=== PATIENT | male | born 1940 | race Caucasian/White ===

== ENCOUNTER → 2016-07-12 | Outpatient (CLI) | payer MEDICARE ==
--- NOTE | 2016-07-12 13:48 | US ---
EXAMINATION TYPE: US abdomen complete DATE OF EXAM: 07/12/2016 10:34 AM COMPARISON: Renal US in PACS CLINICAL HISTORY: R10.13 Epigastric pain. Pt states one episode epigastric pain EXAM MEASUREMENTS: Liver Length: 15.2 cm Gallbladder Wall: 0.3 cm CBD: 0.4 cm Spleen: 12.8 cm Right Kidney: 10.3 x 5.0 x 4.2 cm Left Kidney: 11.9 x 5.1 x 4.5 cm TECHNOLOGIST IMPRESSION: Very limited exam, pt gassy and most of scan visualized intercostally Pancreas: Obscured by bowel gas Liver: Limited visualization, seen mostly intercostally Gallbladder: wnl Evidence for sonographic Eason's sign: No CBD: wnl Spleen: wnl Right Kidney: Cortical thinning Left Kidney: Cortical thinning, Possible cyst upper pole= 1.8 x 1.6 x 1.5 cm Upper IVC: Unable to visualize Abd Aorta: Proximal portion gassed out, mid and distal portions appeared wnl IMPRESSION: 1. Limited due to bowel gas. 2. Visualized abdomen is unremarkable. 3. Possible small left cortical renal cyst
== END | disposition home or self-care (01) ==
LOC: RADUSWWP 10:14
PROVIDERS: ATTEND Family Medicine
DX: R10.13 Epigastric pain (principal)
CPT/HCPCS: 76700

== ENCOUNTER → 2016-08-05 | Outpatient (CLI) | payer MEDICARE ==
[2016-08-05 10:50] LABS: ALT 27 U/L (21-72); AST 23 U/L (17-59); Alkaline Phosphatase 114 U/L (38-126); Anion Gap 13 mmol/L; Blood Urea Nitrogen 19 mg/dL (9-20); Calcium 10.4 mg/dL (8.4-10.2); Carbon Dioxide 25 mmol/L (22-30); Chloride 104 mmol/L (98-107); Cholesterol 121 mg/dL (<200); Glucose 88 mg/dL (74-99); HDL Cholesterol 37 mg/dL (40-60); Non-African American GFR(MDRD) 58 (>60 ml/min/1.73 sqM); Potassium 4.9 mmol/L (3.5-5.1); Sodium 142 mmol/L (137-145); Total Bilirubin 0.8 mg/dL (0.2-1.3); Total Protein 7.1 g/dL (6.3-8.2); Triglycerides 157 mg/dL (<150)
== END | disposition home or self-care (01) ==
LOC: LABWHC1 08:51
PROVIDERS: ATTEND Internal Medicine Interventional Cardiology
DX: E78.2 Mixed hyperlipidemia (principal)
CPT/HCPCS: 36415; 80053; 80061

== ENCOUNTER → 2017-09-07 | Outpatient (CLI) | payer MEDICARE ==
[2017-09-07 11:26] LABS: Albumin 3.9 g/dL (3.5-5.0); Calcium 10.6 mg/dL (8.4-10.2); Potassium 4.8 mmol/L (3.5-5.1); Total Bilirubin 0.7 mg/dL (0.2-1.3); Total Protein 6.6 g/dL (6.3-8.2)
== END | disposition home or self-care (01) ==
LOC: LABWHC1 10:07
PROVIDERS: ATTEND Internal Medicine Interventional Cardiology
DX: E78.2 Mixed hyperlipidemia (principal)
CPT/HCPCS: 36415; 80053; 80061

== ENCOUNTER → 2018-03-14 | Day surgery (SDC) | payer MEDICARE ==
[2018-03-09 09:57] VITALS: BMI 33.1
[~2018-03-14] MED LIST: LACTATED RINGERS 1,000 ML IV ONE; LACTATED RINGERS 1,000 ML IV SCH; LIDOCAINE 1% 20 ML VIAL (10MG/ML) FOR IV START INTRADERMA ONE; LIDOCAINE 1% INJ 10MG/ML (20 ML MDV) ONE; PROPOFOL 10 MG/ML 20 ML VIAL IV ONE
[2018-03-14 10:21] VITALS: TEMP 98.1
--- NOTE | 2018-03-14 10:43 | P.GSHP ---
History of Present Illness H&P Date: 03/14/18 Chief Complaint: Colon cancer screening 78-year-old male presents today for colonoscopy. Last colonoscopy he had multiple polyps. He has a family history of colon cancer. Last colonoscopy 5- 6 years ago. No bowel complaints. Past Medical History Past Medical History: Hyperlipidemia, Hypertension, Osteoarthritis (OA) History of Any Multi-Drug Resistant Organisms: None Reported Past Surgical History: Heart Catheterization With Stent Additional Past Surgical History / Comment(s): Colonoscopy Past Anesthesia/Blood Transfusion Reactions: No Reported Reaction Date of Last Stent Placement:: 2009 Smoking Status: Former smoker - Past Family History Father Family Medical History: Cancer Additional Family Medical History / Comment(s): Colon CA Mother Family Medical History: Cancer Additional Family Medical History / Comment(s): Skin CA Daughter(s) Family Medical History: Deep Vein Thrombosis (DVT) Medications and Allergies Home Medications Medication Instructions Recorded Confirmed Type Albuterol Inhaler [Ventolin Hfa 1 - 2 puff INHALATION RT-Q6H PRN 03/09/18 History Inhaler] Aspirin [Adult Low Dose Aspirin EC] 81 mg PO DAILY 03/09/18 03/09/18 History Atenolol 100 mg PO DAILY 03/09/18 03/14/18 History Atorvastatin [Lipitor] 10 mg PO HS 03/09/18 03/14/18 History Beclomethasone Dipropionate [Qvar 1 puff INHALATION BID PRN 03/09/18 03/14/18 History 40 mcg Redihaler] HYDROcodone/APAP 5-325MG [Secor 1 tab PO Q6HR PRN 03/09/18 03/14/18 History 5-325] Lisinopril [Prinivil] 5 mg PO DAILY 03/09/18 03/14/18 History Tamsulosin [Flomax] 0.4 mg PO DAILY 03/09/18 03/14/18 History Allergies Allergy/AdvReac Type Severity Reaction Status Date / Time No Known Allergies Allergy Verified 03/14/18 10:12 Surgical - Exam Vital Signs Temp Pulse Resp BP Pulse Ox 98.1 F 58 L 16 144/66 99 03/14/18 10:20 03/14/18 10:20 03/14/18 10:20 03/14/18 10:20 03/14/18 10:20 Physical exam: General: Well-developed, well-nourished HEENT: Normocephalic, sclerae nonicteric Abdomen: Nontender, nondistended Extremities: No edema Neuro: Alert and oriented Assessment and Plan (1) Colon cancer screening Narrative/Plan: Will proceed with colonoscopy at this time. Current Visit: Yes Status: Acute Code(s): Z12.11 - ENCOUNTER FOR SCREENING FOR MALIGNANT NEOPLASM OF COLON SNOMED Code(s): 541180335
--- NOTE | 2018-03-14 11:11 | P.PCN ---
Date of Procedure: 03/14/18 Procedure(s) Performed: PREOPERATIVE DIAGNOSIS: Colon cancer screening, history of multiple polyps, family history colon cancer POSTOPERATIVE DIAGNOSIS: Multiple colon polyps, see report PROCEDURE: Colonoscopy with snare polypectomy ANESTHESIA: MAC SURGEON: Qasim Acosta M.D. SPECIMENS: Multiple polyps ENDOSCOPIC PROCEDURE: The patient was placed on the endoscopy table in the left decubitus position. The Olympus colonoscope was inserted into the anus and passed under direct visualization to the proximal ascending colon. I was unable to advance the scope into the base of the cecum although I could visualize the majority of the base of the cecum from a distance of approximately 5-10 cm. This was due to tortuosity of the colon. The scope was withdrawn from that point. There were no abnormalities identified in the cecum or ascending colon. In the transverse colon a total of 4 polyps were identified and removed using the snare with cautery technique. None of these polyps were larger than 1 cm. In the descending colon an additional 4 polyps were identified with the largest measuring 1.5 cm. This was removed in a piecemeal fashion. This was present at 70 cm. These were sent altogether as descending colon polyps. The remainder of the descending sigmoid and rectum were free of any neoplastic inflammatory or polypoid lesions. The rest no visible diverticulosis. Digital rectal examination was normal. The patient was taken to the recovery room in stable condition per anesthesia guidelines. RECOMMENDATIONS: Await biopsy results. Recommend follow-up colonoscopy one year. Patient was advised previously to follow-up in 2 years and missed his appointment.
[2018-03-14 11:17] VITALS: RESP 18
[2018-03-14 11:52] VITALS: BP 136/79; PULSE 62
== END | disposition home or self-care (01) ==
LOC: ORWHC2ENDO 09:56
PROVIDERS: ATTEND Surgery
DX: Z12.11 Encounter for screening for malignant neoplasm of colon (principal); D12.3 Benign neoplasm of transverse colon; D12.4 Benign neoplasm of descending colon; E78.5 Hyperlipidemia, unspecified; I10 Essential (primary) hypertension; M19.90 Unspecified osteoarthritis, unspecified site; I25.10 Atherosclerotic heart disease of native coronary artery without angina pectoris; Z95.5 Presence of coronary angioplasty implant and graft; Z87.891 Personal history of nicotine dependence; Z79.82 Long term (current) use of aspirin; Z79.899 Other long term (current) drug therapy; Z80.0 Family history of malignant neoplasm of digestive organs; Z86.010 Personal history of colon polyps
CPT/HCPCS: 88305; 45385; J2001; J2704

== ENCOUNTER → 2018-10-02 | Outpatient (CLI) | payer MEDICARE ==
[2018-10-02 16:24] LABS: LDL Cholesterol,Calculated 67.4 mg/dL (0.0-131.0); VLDL Calculation 25.6 mg/dL (5.00-40.00)
== END | disposition home or self-care (01) ==
LOC: LABWHC1 08:54
PROVIDERS: ATTEND Internal Medicine Interventional Cardiology
DX: E78.2 Mixed hyperlipidemia (principal)
CPT/HCPCS: 36415; 80061; 84450; 84460

== ENCOUNTER → 2019-03-28 | Outpatient (CLI) | payer MEDICARE ==
[2019-03-28 16:21] LABS: African American GFR (CKD) 73.1 (60.0-200.0); Albumin 4.6 g/dL (3.80-4.90); Albumin/Globulin Ratio 2.42 (1.60-3.17); Anion Gap 8.6 mmol/L (4.00-12.00); BUN/Creat Ratio 17.27 Ratio (12.00-20.00); Calcium 10.8 mg/dL (8.7-10.3); Carbon Dioxide 25.4 mmol/L (21.6-31.8); Chol/HDL Ratio 3.42; Globulin 1.9 g/dL (1.6-3.3); LDL Cholesterol,Calculated 61.8 mg/dL (0.0-131.0); Potassium 4.6 mmol/L (3.5-5.5); Total Bilirubin 0.7 mg/dL (0.3-1.2); Total Protein 6.5 g/dL (6.2-8.2); VLDL Calculation 25.2 mg/dL (5.00-40.00)
== END | disposition home or self-care (01) ==
LOC: LABWHC1 11:16
PROVIDERS: ATTEND Nurse Practitioner Adult Health
DX: I10 Essential (primary) hypertension (principal); E78.2 Mixed hyperlipidemia; I25.10 Atherosclerotic heart disease of native coronary artery without angina pectoris
CPT/HCPCS: 36415; 80053; 80061

== ENCOUNTER → 2019-03-28 | Outpatient (CLI) | payer MEDICARE ==
[~2019-03-28] MED LIST changes: +DOBUTamine DRIP for NUC MED 500 MG in DEXTROSE/WATER 1 250ML.BAG IV ONE; -LACTATED RINGERS 1,000 ML IV ONE; -LACTATED RINGERS 1,000 ML IV SCH; -LIDOCAINE 1% 20 ML VIAL (10MG/ML) FOR IV START INTRADERMA ONE; -LIDOCAINE 1% INJ 10MG/ML (20 ML MDV) ONE; -PROPOFOL 10 MG/ML 20 ML VIAL IV ONE
--- NOTE | 2019-03-28 18:41 | P.STRESS ---
- Stress Test Note Stress Test Results/Findings: Exam Performed: dobutamine stress echo Exam Date: 03/28/19 Reason for Exam: chest pain Height: 5 ft 8 in Weight: 97.522 kg Protocol: dobutamine stress echo Stage: 4 Duration of Exercise: 12 min Resting Heart Rate: 78 Resting Blood Pressure: 154/88 Maximum Achieved Heart Rate: 121 Maximum Achieved Blood Pressure: 144/66 85% PMHR: 119 100% PMHR: 140 METS: na Technologist Comment: Stress Test Results/Findings: This is a 79-year-old gentleman with history of hypertension and also history of angina being evaluated for symptoms of chest pain and shortness of breath. Patient has underlying COPD. Stress data: Baseline EKG showed a sinus rhythm with evidence of a right bundle branch block pattern with secondary ST-T changes. Blood pressure at rest is 154/88 with pulse rate of 78. Patient was initiated on 10 mics of dobutamine which was titrated to 40 mics, achieving a maximum heart rate of 121 with a blood pressure 144/66. EKGs taken during and after the dobutamine infusion continued to show right bundle-branch block pattern without any significant deviation from the baseline. Echo data: Baseline echo images show normal wall motion and thickening. Echo images taken at low dose and high dose dobutamine showed progressive augmentation of wall motion and thickening in all the segments. Final impression: #1. Nondiagnostic dobutamine stress echo because of baseline EKG changes #2. Negative dobutamine stress echo
== END | disposition home or self-care (01) ==
LOC: RADNMMAIN 09:38
PROVIDERS: ATTEND Family Medicine
DX: I10 Essential (primary) hypertension (principal); R07.89 Other chest pain
CPT/HCPCS: 93351; J1250

== ENCOUNTER 2019-04-10 06:12 | Day surgery (SDC) | payer MEDICARE ==
[2019-04-09 09:24] VITALS: BMI 32.6
[2019-04-10] MEDS ORDERED: ALPRAZolam 0.25 MG TAB PO PRN (06:16)
[2019-04-10] MEDS ORDERED: SODIUM CHLORIDE 0.9% 1,000 ML in EMPTY BAG 1 BAG IV ONE (06:16)
[2019-04-10] MEDS ORDERED: ALPRAZolam 0.5 MG TAB PO PRN (06:16)
[2019-04-10] MEDS ORDERED: NITROGLYCERIN SL TABS 0.4 MG TAB SUBLINGUAL PRN (06:16)
[2019-04-10 06:57] VITALS: TEMP 98.1
[2019-04-10] MEDS ORDERED: ATORVASTATIN 80 MG TAB PO ONE (07:00)
[2019-04-10] MEDS ORDERED: ASPIRIN 325 MG TAB PO ONE (07:00)
[2019-04-10 07:04] LABS: Basophils # (A) 0.1 k/uL (0-0.2); Basophils % (A) 2 %; Eosinophils # (A) 0.2 k/uL (0-0.7); Eosinophils % (A) 3 %; HCT 43.3 % (39.0-53.0); HGB 14.8 gm/dL (13.0-17.5); Lymphocytes # (A) 1.3 k/uL (1.0-4.8); Lymphocytes % (A) 18 %; MCH 29.6 pg (25.0-35.0); MCHC 34.1 g/dL (31.0-37.0); MCV 86.6 fL (80.0-100.0); Monocytes # (A) 0.5 k/uL (0-1.0); Monocytes % (A) 6 %; Neutrophils # (A) 5.3 k/uL (1.3-7.7); Neutrophils % (A) 70 %; Platelet Count 136 k/uL (150-450); WBC 7.7 k/uL (3.8-10.6)
[2019-04-10] MEDS ORDERED: fentaNYL (PF) 50 MCG/ML 2 ML AMP ONE (07:33)
[2019-04-10] MEDS ORDERED: VERAPAMIL 2.5 MG/ML 2 ML AMP ONE (07:33)
[2019-04-10] MEDS ORDERED: LIDOCAINE 1% INJ 10MG/ML (20 ML MDV) ONE (07:33)
[2019-04-10] MEDS ORDERED: fentaNYL (PF) 50 MCG/ML 2 ML AMP IV ONE (07:42)
[2019-04-10] MEDS ORDERED: LIDOCAINE 1% INJ 10MG/ML (20 ML MDV) SQ ONE (07:45)
[2019-04-10] MEDS ORDERED: VERAPAMIL SYRINGE (5 MG/10 ML) INTRAARTER ONE (07:47)
[2019-04-10] MEDS ORDERED: HEPARIN SODIUM 1,000 UN/ML (10ML VL) ONE (07:53)
[2019-04-10] MEDS ORDERED: HEPARIN SODIUM 1,000 UN/ML (10ML VL) IV ONE (07:54)
[2019-04-10] MEDS ORDERED: IOPAMIDOL-370 125ML BTL INJ ONE (08:00)
[2019-04-10] MEDS ORDERED: BECLOMETHASONE DIPROPIONATE INHALATION PRN (08:08)
[2019-04-10] MEDS ORDERED: HYDROcodone/APAP 5-325MG 1 EACH TAB PO PRN (08:08)
[2019-04-10] MEDS ORDERED: RX INFO: IV CONTRAST WAS GIVEN 1 EACH MISC MISCELLANE PRN (08:08)
[2019-04-10] MEDS ORDERED: SODIUM CHLORIDE 0.9% 1,000 ML IV SCH (08:15)
[2019-04-10] MEDS ORDERED: ATENOLOL 100 MG PO SCH (09:00)
[2019-04-10] MEDS ORDERED: NON FORMULARY DRUG (Aspirin [Adult Low Dose Aspirin Ec] 81 MG) PO SCH (09:00)
[2019-04-10] MEDS ORDERED: TAMSULOSIN 0.4 MG CAP.ER.24H PO SCH (09:00)
[2019-04-10] MEDS ORDERED: LISINOPRIL 5 MG TAB PO SCH (09:00)
[2019-04-10 11:01] VITALS: PULSE 56
--- NOTE | 2019-04-10 11:27 | CC ---
CARDIAC CATHETERIZATION REPORT Mr. Flores is an 79-year-old male with known history of hypertension, hyperlipidemia, who has presented with symptoms of progressive dyspnea and chest discomfort, relieved with nitroglycerin over the last 2 weeks. In view of that, recommendation made regarding cardiac catheterization. The procedures, risks and complication were discussed with the patient who is in full understanding and agreement. PROCEDURE: Patient was brought to [facility] in the fasting semi-sedated state after receiving fentanyl and Benadryl and achieving moderate conscious sedated state. Using Xylocaine anesthesia and Seldinger technique, a 6-Surinamese sheath was introduced in the right radial artery. Selective right and left coronary angiography performed using 5-Surinamese 3.5 bend right and left Bridget catheter, multiple views of the coronary artery including hemiaxial views were obtained. Following that, a 5-Surinamese tight pigtail catheter was introduced in the left ventricle and pressures were calculated. Following that, catheter and sheath were removed. Hemostasis was obtained with deployment of a TR band. There was no immediate complication. Patient is returned to his room in stable condition. Of note, the patient received 5000 units of intravenous heparin as well as intra-arterial verapamil. FINDINGS: LEFT MAIN: This is a short size vessel, bifurcating into left circumflex, left anterior descending artery. Left main coronary artery has no evidence of high-grade stenosis. LEFT ANTERIOR DESCENDING ARTERY: This is a large-sized vessel, reaching toward the apex with a wraparound apex segment giving rise to a large diagonal branch. The proximal LAD is stented and has no evidence of restenosis. Following the stent, there is a 20% plaque without any evidence of high-grade stenosis. LEFT CIRCUMFLEX: This is a nondominant vessel, large in caliber giving rise to 4 obtuse marginal branch. The left main in the left circumflex has mild intimal disease of 10% to 20% without any evidence of high-grade stenosis. RIGHT CORONARY ARTERY: This is a moderately-sized vessel bifurcating distally into PDA and posterolateral segment branches. The right coronary artery in mid segment has a 20% plaque without any evidence of high-grade stenosis. LEFT VENTRICULOGRAM: Left ventriculogram was not performed. HEMODYNAMICS: There was no gradient across the aortic valve. The left ventricular end- diastolic pressure was 20-24 mmHg. CONCLUSION: 1. Mild triple-vessel coronary artery disease. 2. No evidence of restenosis at the prior stented segment in the proximal LAD. RECOMMENDATION: In view of finding anatomy, I recommend continue medical therapy with the aggressive coronary risk modifications being initiated. Those findings and recommendation were discussed with the patient and his family and they are in full understanding and agreement. Duration of procedure is 15 minutes. YOHANA / BRIANDA: [id number] /
--- NOTE | 2019-04-10 11:33 | LTR ---
DATE OF SERVICE: 04/10/2019 RE: Cortez Flores Dear Dr. Dukes: I had the pleasure to perform cardiac catheterization on Mr. Flores at [facility] on April 10, 2019 and a full copy of the procedure note will be forwarded to you. In brief, he was found to have no evidence of restenosis at the prior stented segment of 2009 with mild intimal disease. In view of those findings, I recommend continue medical therapy with aggressive risk modification that has been initiated and thank you again for allowing me to participate in this patient's care. Please feel free to call for any questions. Sincerely yours, Georgie Dunlap MD [id number] / ANÍBALN: [id number] /
[2019-04-10 12:29] VITALS: BP 120/56; RESP 18
[2019-04-10] MEDS ORDERED: ATORVASTATIN 10 MG TAB PO SCH (21:00)
== END 2019-04-10 12:55 | disposition home or self-care (01) ==
LOC: CATHCVL 06:12
PROVIDERS: ATTEND Internal Medicine Interventional Cardiology
DX: I25.110 Atherosclerotic heart disease of native coronary artery with unstable angina pectoris (principal); I10 Essential (primary) hypertension; E78.2 Mixed hyperlipidemia; E66.9 Obesity, unspecified; Z68.34 Body mass index [BMI] 34.0-34.9, adult; Z79.82 Long term (current) use of aspirin; Z79.899 Other long term (current) drug therapy; Z79.51 Long term (current) use of inhaled steroids
CPT/HCPCS: 93458; 85025; J2001; J3010; J1644; Q9967

== ENCOUNTER → 2019-06-13 | Outpatient (CLI) | payer MEDICARE ==
--- NOTE | 2019-06-14 11:39 | XR ---
EXAMINATION TYPE: XR chest 2V DATE OF EXAM: 06/13/2019 COMPARISON: 05/21/2010 INDICATION: Short of breath and wheezing x1 week TECHNIQUE: Frontal and lateral views of the chest are obtained. FINDINGS: The heart size is normal. The pulmonary vasculature is normal. There is elevation of the right diaphragm. There is some flattening the diaphragms. Some underlying i nfiltrate adjacent to the diaphragm may be present.. Note is made of degenerative changes at the bilateral shoulders. Prior surgical resection of the left distal clavicle is evident. IMPRESSION: 1. Clinical correlation recommended for right lower lobe atelectasis. Follow-up can be performed.
== END | disposition home or self-care (01) ==
LOC: RADXRMAIN 17:57
PROVIDERS: ATTEND Family Medicine
DX: J98.11 Atelectasis (principal)
CPT/HCPCS: 71046

== ENCOUNTER 2019-12-02 10:11 | Emergency (ER) | payer MEDICARE ==
[2019-12-02 10:17] VITALS: TEMP 97.9
[2019-12-02] MEDS ORDERED: SODIUM CHLORIDE 0.9% 1,000 ML IV STA ×2 (10:39)
[2019-12-02] MEDS ORDERED: ONDANSETRON 4 MG/2 ML VIAL IVP STA (10:39)
[2019-12-02] MEDS ORDERED: HYDROmorphone 0.5 MG/0.5 ML SYRINGE IVP STA (10:39)
[2019-12-02] MEDS ORDERED: PANTOPRAZOLE 40 MG/10 ML VIAL IVP STA (10:39)
--- NOTE | 2019-12-02 10:44 | ED ---
Abdominal Pain HPI - General Chief Complaint: Abdominal Pain Stated Complaint: Abd pain Time Seen by Provider: 12/02/19 10:24 Source: patient, RN notes reviewed, old records reviewed Mode of arrival: ambulatory Limitations: no limitations - History of Present Illness Initial Comments: Patient is an 79-year-old male who presents emergency Department today with complaints of epigastric abdominal pain. Vomiting after eating for the past 5 days. He reports that he has been passing some gas minor bowel movement on Monday. Denies any history of abdominal surgeries. Last was [address] Acosta. Patient denies any chest pain or shortness of breath or fevers. He denies any significant change in urination. - Related Data Home Medications Medication Instructions Recorded Confirmed Aspirin [Adult Low Dose Aspirin EC] 81 mg PO HS 03/09/18 12/02/19 Atorvastatin [Lipitor] 10 mg PO HS 03/09/18 12/02/19 HYDROcodone/APAP 5-325MG [[place] 1 tab PO TID PRN 03/09/18 12/02/19 5-325] Lisinopril [Prinivil] 5 mg PO DAILY 03/09/18 12/02/19 Tamsulosin [Flomax] 0.4 mg PO HS 03/09/18 12/02/19 Atenolol [Tenormin] 50 mg PO BID 12/02/19 12/02/19 Omeprazole 20 mg PO HS 12/02/19 12/02/19 Pregabalin 100 mg PO HS 12/02/19 12/02/19 Previous Rx's Medication Instructions Recorded Famotidine [Pepcid] 20 mg PO BID #20 tablet 12/02/19 Ondansetron Odt [Zofran Odt] 4 mg PO Q8HR PRN #12 tab 12/02/19 Allergies Allergy/AdvReac Type Severity Reaction Status Date / Time No Known Allergies Allergy Verified 12/02/19 11:02 Review of Systems ROS Statement: Those systems with pertinent positive or pertinent negative responses have been documented in the HPI. ROS Other: All systems not noted in ROS Statement are negative. Past Medical History Past Medical History: Coronary Artery Disease (CAD), COPD, Hyperlipidemia, Hypertension, Osteoarthritis (OA), Prostate Disorder History of Any Multi-Drug Resistant Organisms: None Reported Past Surgical History: Heart Catheterization With Stent Additional Past Surgical History / Comment(s): Colonoscopy Past Anesthesia/Blood Transfusion Reactions: No Reported Reaction Date of Last Stent Placement:: 2009 Past Psychological History: No Psychological Hx Reported Smoking Status: Former smoker Past Alcohol Use History: None Reported Past Drug Use History: None Reported - Past Family History Father Family Medical History: Cancer Additional Family Medical History / Comment(s): Colon CA Mother Family Medical History: Cancer Additional Family Medical History / Comment(s): Skin CA Daughter(s) Family Medical History: Deep Vein Thrombosis (DVT) General Exam - General Exam Comments Initial Comments: 79-year-old male. Alert and oriented 3. Limitations: no limitations General appearance: alert, in no apparent distress Head exam: Present: atraumatic, normocephalic, normal inspection Eye exam: Present: normal appearance, PERRL, EOMI. Absent: scleral icterus, conjunctival injection, periorbital swelling ENT exam: Present: normal exam, mucous membranes moist Neck exam: Present: normal inspection. Absent: tenderness, meningismus, lymphadenopathy Respiratory exam: Present: normal lung sounds bilaterally. Absent: respiratory distress, wheezes, rales, rhonchi, stridor Cardiovascular Exam: Present: regular rate, normal rhythm, normal heart sounds. Absent: systolic murmur, diastolic murmur, rubs, gallop, clicks GI/Abdominal exam: Present: soft, normal bowel sounds. Absent: distended, tenderness, guarding, rebound, rigid Extremities exam: Present: normal inspection, full ROM, normal capillary refill. Absent: tenderness, pedal edema, joint swelling, calf tenderness Back exam: Present: normal inspection Course Vital Signs 12/02/19 10:15 Temperature 97.9 F Pulse Rate 78 Respiratory 18 Rate Blood Pressure 156/76 O2 Sat by Pulse 97 Oximetry Medical Decision Making - Medical Decision Making 79-year-old male presents emergency department today for evaluation for concerns for abdominal pain, nausea and vomiting and distention and belching. He was passing some gas for the past day. Patient states that he feels that anytime he eats he feels like it will come back up. Patient was given IV fluids and laboratory obtained. Labs are reviewed showing white blood cell count of 6.8, hemoglobin 14.4. Platelets of 135. She was unremarkable sodium 135, potassium of 4.5. Kidney function stable. Bilirubin is normal. Transaminases show no elevation. The patient's concern for distention and pain computed tomography s can was completed. Computed tomography scan shows no evidence of obstruction or any other Abdominal processes and labs reviewed to be normal and normal computed tomography scan I advised Patient follow-up with primary care doctor will have the Patient started on nausea medication and Pepcid to help with stomach lining significantly some irritation in nausea and wanting to occur after vomiting. I discussed Patient to follow-up with primary care physician and return parameters were discussed. - Lab Data Result diagrams: 12/02/19 11:16 12/02/19 11:16 Lab Results 12/02/19 12/02/19 12/02/19 Range/Units 11:16 11:16 11:16 WBC 6.8 (3.8-10.6) k/uL RBC 4.83 (4.30-5.90) m/uL Hgb 14.4 (13.0-17.5) gm/dL Hct 42.1 (39.0-53.0) % MCV 87.3 (80.0-100.0) fL MCH 29.8 (25.0-35.0) pg MCHC 34.1 (31.0-37.0) g/dL RDW 13.2 (11.5-15.5) % Plt Count 135 L (150-450) k/uL Neutrophils % 63 % Lymphocytes % 23 % Monocytes % 8 % Eosinophils % 2 % Basophils % 0 % Neutrophils # 4.3 (1.3-7.7) k/uL Lymphocytes # 1.6 (1.0-4.8) k/uL Monocytes # 0.5 (0-1.0) k/uL Eosinophils # 0.1 (0-0.7) k/uL Basophils # 0.0 (0-0.2) k/uL PT 10.5 (9.0-12.0) sec INR 1.0 (<1.2) APTT 24.0 (22.0-30.0) sec Sodium 135 L (137-145) mmol/L Potassium 4.5 (3.5-5.1) mmol/L Chloride 100 (98-107) mmol/L Carbon Dioxide 26 (22-30) mmol/L Anion Gap 9 mmol/L BUN 17 (9-20) mg/dL Creatinine 0.95 (0.66-1.25) mg/dL Est GFR (CKD-EPI)AfAm 88 (>60 ml/min/1.73 sqM) Est GFR (CKD-EPI)NonAf 76 (>60 ml/min/1.73 sqM) Glucose 113 H (74-99) mg/dL Plasma Lactic Acid Martínez (0.7-2.0) mmol/L Calcium 10.1 (8.4-10.2) mg/dL Total Bilirubin 0.8 (0.2-1.3) mg/dL AST 24 (17-59) U/L ALT 21 (4-49) U/L Alkaline Phosphatase 98 (38-126) U/L Total Protein 6.3 (6.3-8.2) g/dL Albumin 3.8 (3.5-5.0) g/dL Amylase 46 (30-110) U/L Lipase 74 (23-300) U/L 12/02/19 Range/Units 11:16 WBC (3.8-10.6) k/uL RBC (4.30-5.90) m/uL Hgb (13.0-17.5) gm/dL Hct (39.0-53.0) % MCV (80.0-100.0) fL MCH (25.0-35.0) pg MCHC (31.0-37.0) g/dL RDW (11.5-15.5) % Plt Count (150-450) k/uL Neutrophils % % Lymphocytes % % Monocytes % % Eosinophils % % Basophils % % Neutrophils # (1.3-7.7) k/uL Lymphocytes # (1.0-4.8) k/uL Monocytes # (0-1.0) k/uL Eosinophils # (0-0.7) k/uL Basophils # (0-0.2) k/uL PT (9.0-12.0) sec INR (<1.2) APTT (22.0-30.0) sec Sodium (137-145) mmol/L Potassium (3.5-5.1) mmol/L Chloride (98-107) mmol/L Carbon Dioxide (22-30) mmol/L Anion Gap mmol/L BUN (9-20) mg/dL Creatinine (0.66-1.25) mg/dL Est GFR (CKD-EPI)AfAm (>60 ml/min/1.73 sqM) Est GFR (CKD-EPI)NonAf (>60 ml/min/1.73 sqM) Glucose (74-99) mg/dL Plasma Lactic Acid Martínez 1.6 (0.7-2.0) mmol/L Calcium (8.4-10.2) mg/dL Total Bilirubin (0.2-1.3) mg/dL AST (17-59) U/L ALT (4-49) U/L Alkaline Phosphatase (38-126) U/L Total Protein (6.3-8.2) g/dL Albumin (3.5-5.0) g/dL Amylase (30-110) U/L Lipase (23-300) U/L - Radiology Data Radiology results: report reviewed There may be some air-fluid levels within the ascending colon region, reasonably: The midabdomen. Suspicious air-fluid levels or differential air fluid or not evident. No free air is identified. Overall rate is nonspecific bowel gas pattern. KUB shows nonspecific bowel gas pattern. CT abdomen and pelvis is no bowel instruction. No findings for patient's critical symptoms of vomiting and pain. No evidence of diverticulitis. He does have a large fat-containing inguinal hernia. Disposition Clinical Impression: Nausea & vomiting, Abdominal bloating Disposition: HOME SELF-CARE Condition: Good Instructions (If sedation given, give patient instructions): Acute Nausea and Vomiting (ED) Additional Instructions: Please use medication as discussed. Please follow up with family doctor if symptoms have not improved over the next two days. Please return to the emergency room if your symptoms increase or worsen or for any other concerns. Prescriptions: Famotidine [Pepcid] 20 mg PO BID #20 tablet Ondansetron Odt [Zofran Odt] 4 mg PO Q8HR PRN #12 tab PRN Reason: Nausea Is patient prescribed a controlled substance at d/c from ED?: No Referrals: Luis Farooq MD [Primary Care Provider] - 1-2 days Time of Disposition: 12:12
--- NOTE | 2019-12-02 10:59 | XR ---
EXAMINATION TYPE: XR KUB DATE OF EXAM: 12/02/2019 COMPARISON: None HISTORY: Abdomen pain and bloating constipation TECHNIQUE: Upright abdomen FINDINGS: Nonspecific bowel gas is present. There may be some air-fluid levels within the ascending c olon region. There is a redundant loop of colon within the midabdomen. Suspicious air-fluid levels or differential air-fluid levels are not evident. No free air is identified. IMPRESSION: 1. Nonspecific bowel gas pattern.
[2019-12-02 11:03] LABS: Basophils % (A) 0 %; Eosinophils # (A) 0.1 k/uL (0-0.7); Eosinophils % (A) 2 %; HCT 42.1 % (39.0-53.0); HGB 14.4 gm/dL (13.0-17.5); Lymphocytes # (A) 1.6 k/uL (1.0-4.8); Lymphocytes % (A) 23 %; MCH 29.8 pg (25.0-35.0); MCHC 34.1 g/dL (31.0-37.0); MCV 87.3 fL (80.0-100.0); Mean Platelet Volume 9.9; Monocytes # (A) 0.5 k/uL (0-1.0); Monocytes % (A) 8 %; Neutrophils # (A) 4.3 k/uL (1.3-7.7); Neutrophils % (A) 63 %; Platelet Count 135 k/uL (150-450); RBC 4.83 m/uL (4.30-5.90); RDW 13.2 % (11.5-15.5); WBC 6.8 k/uL (3.8-10.6)
[2019-12-02 11:16] LABS: Albumin 3.8 g/dL (3.5-5.0); Calcium 10.1 mg/dL (8.4-10.2); Potassium 4.5 mmol/L (3.5-5.1); Total Bilirubin 0.8 mg/dL (0.2-1.3); Total Protein 6.3 g/dL (6.3-8.2)
[2019-12-02 11:25] LABS: Prothrombin Time 10.5 sec (9.0-12.0)
--- NOTE | 2019-12-02 12:04 | CT ---
EXAMINATION TYPE: CT abdomen pelvis w con DATE OF EXAM: 12/02/2019 COMPARISON: None. HISTORY: Nausea and vomiting CT DLP: 1664.3 mGycm, Automated Exposure Control for Dose Reduction was Utilized. CONTRAST: CT scan of the abdomen and pelvis is performed without oral and with IV Contrast, patient injected wi th 100 mL of Isovue 300. FINDINGS: LUNG BASES: Elevated right hemidiaphragm with partial visualization of mild to moderate bibasilar ishan ear scarring and/or atelectasis. LIVER/GB: Mild left-sided central intrahepatic and intrahepatic biliary dilatation up to 11 mm near t he johnny hepatis with gradual tapering towards the ampulla. No obstructing calculus clearly seen. No pancreatic ductal dilatation noted. Need to followed by nonemergent ERCP or MRCP should be based on c linical and lab correlation. PANCREAS: Mild generalized fat replaced atrophy. SPLEEN: Mild splenomegaly at 13.7 cm long axis coronal image 79. ADRENALS: No significant abnormality is seen. KIDNEYS: Symmetric cortical medullary uptake and excretion without hydronephrosis seen bilaterally. C ortical thinning bilaterally with simple appearing thin-walled 1.9 cm cyst anteriorly midpole of the left kidney. Mildly distended bladder extending to right of midline in the upper pelvis. BOWEL: Suboptimal evaluation without enteric contrast. Stomach poorly distended and thus suboptimally evaluated. No suspicious small or large bowel dilatation. Colonic interposition, entire colon not in cluded at this level. Redundant sigmoid colon. Few scattered colonic diverticula. No convincing CT ev idence for acute diverticulitis. PROSTATE/SEMINAL VESICLES: Heterogeneous enlarged prostate gland consistent with BPH bulging of the b ladder base. LYMPH NODES: No greater than 1cm abdominal or pelvic lymph nodes are appreciated. OSSEOUS STRUCTURES: Moderate to severe multilevel spurring and disc space narrowing throughout the th oracolumbar spine with slight scoliotic curvature. Multilevel facet arthropathy mid to lower lumbar s pine. Bilateral pars defect L5 level with subtle spondylolisthesis L5 on S1 anteriorly. Moderate axia l joint space loss and spurring of both hip joints. OTHER: Moderate to large sized fat-containing right inguinal hernia. IMPRESSION: No bowel obstruction. No significant acute finding is seen to account for patient's clin ical symptoms of pain and vomiting..
[2019-12-02 13:06] LABS: RBC,Urine <1 /hpf (0-5)
[2019-12-02] MEDS ORDERED: DOCUSATE 283 MG/5 ML ENEMA RECTAL STA (13:06)
[2019-12-02 13:14] LABS: Appearance,Urine Clear (Clear); Color,Urine Yellow
[2019-12-02 13:15] LABS: Bilirubin,Urine Negative (Negative); Blood,Urine Negative (Negative); Glucose,Urine (UA) Negative (Negative); Ketones,Urine Negative (Negative); Nitrite,Urine Negative (Negative); Protein,Urine Negative (Negative); Urobilinogen,Urine <2.0 mg/dL (<2.0)
[2019-12-02 13:16] LABS: Leukocyte Esterase,Urine Negative (Negative)
[2019-12-02 13:22] VITALS: BP 113/74; PULSE 71; RESP 16
== END 2019-12-02 13:22 | disposition home or self-care (01) ==
LOC: EC 10:11
DX: R11.2 Nausea with vomiting, unspecified (principal); R14.0 Abdominal distension (gaseous); R10.13 Epigastric pain; I25.10 Atherosclerotic heart disease of native coronary artery without angina pectoris; E78.5 Hyperlipidemia, unspecified; I10 Essential (primary) hypertension; Z79.82 Long term (current) use of aspirin; Z79.899 Other long term (current) drug therapy; Z87.891 Personal history of nicotine dependence; Z95.5 Presence of coronary angioplasty implant and graft
CPT/HCPCS: 36415; 93005; 80053; 82150; 83605; 83690; 85025; 85610; 85730; 81003; 74018; 74177; 99285; 96374; 96375; 96361 ×2; J2405; C9113; Q9967

== ENCOUNTER → 2019-12-24 | Day surgery (SDC) | payer MEDICARE ==
[2019-12-20 18:32] VITALS: BMI 34.3
[~2019-12-24] MED LIST changes: -DOBUTamine DRIP for NUC MED 500 MG in DEXTROSE/WATER 1 250ML.BAG IV ONE; +LACTATED RINGERS 1,000 ML IV SCH; +LIDOCAINE 1% (10MG/ML) FOR IV START INTRADERMA ONE; +PROPOFOL 10 MG/ML 20 ML VIAL IV ONE
[2019-12-24 10:49] VITALS: TEMP 97.6
[2019-12-24 11:39] VITALS: RESP 20
--- NOTE | 2019-12-24 11:40 | P.PCN ---
Date of Procedure: 12/24/19 Procedure(s) Performed: PREOPERATIVE DIAGNOSIS: Epigastric pain, change in bowel habits POSTOPERATIVE DIAGNOSIS: Mild gastritis, descending colon polyps PROCEDURE: 1. EGD with biopsy 2. Colonoscopy with snare polypectomy ANESTHESIA: MAC SURGEON: Qasim Acosta M.D. SPECIMENS: Antrum, polyps ENDOSCOPIC PROCEDURE: The patient was on the endoscopy table in the left decubitus position. The Olympus gastroscope was inserted into the oropharynx and passed under direct visualization to the region of the third portion of the duodenum. From that point the scope was slowly withdrawn inspecting all surfaces carefully. There were no neoplastic inflammatory or polypoid lesions throughout the duodenum. The pylorus was widely patent. The stomach was carefully inspected. There was mild gastritis present. A biopsy of the antrum took place to rule out H. pylori. Retroflexion revealed a normal hiatus. The esophagus was then carefully examined. There were no neoplastic inflammatory or polypoid lesions throughout the visualized esophagus. The patient was kept on the endoscopy table in the left decubitus position. The Olympus colonoscope was inserted into the anus and passed under direct visualization to the ascending colon. We're unable to advance the scope more proximally given distal tortuosity. From a distance I thought I could visualize the cecum however we could not get a good enough view to be confident that there were no abnormalities there. The visualized ascending, transverse colon appeared normal. In the descending colon there were 4 polyps in a short stretch that were all removed using the snare with cautery technique. These were small in size. The remainder of the descending sigmoid and rectum appeared normal. There is no visible diverticulosis. Digital rectal examination was normal. The patient was taken to the recovery room in stable condition per anesthesia guidelines. RECOMMENDATIONS: Await biopsy results. Follow-up colonoscopy 5 years. Will discuss limited view of proximal colon with the family. Barium enema will be offered.
[2019-12-24 12:08] VITALS: BP 143/75; PULSE 59
== END ==
LOC: ORWHC2ENDO 10:00
PROVIDERS: ATTEND Surgery
DX: K29.50 Unspecified chronic gastritis without bleeding (principal); D12.4 Benign neoplasm of descending colon; K59.00 Constipation, unspecified; Z86.010 Personal history of colon polyps; Z80.0 Family history of malignant neoplasm of digestive organs; G47.33 Obstructive sleep apnea (adult) (pediatric); K21.9 Gastro-esophageal reflux disease without esophagitis; K40.90 Unilateral inguinal hernia, without obstruction or gangrene, not specified as recurrent; I25.10 Atherosclerotic heart disease of native coronary artery without angina pectoris; J44.9 Chronic obstructive pulmonary disease, unspecified; E78.5 Hyperlipidemia, unspecified; I10 Essential (primary) hypertension; M19.90 Unspecified osteoarthritis, unspecified site; N42.9 Disorder of prostate, unspecified; Z95.5 Presence of coronary angioplasty implant and graft; Z79.82 Long term (current) use of aspirin; Z79.899 Other long term (current) drug therapy; Z79.891 Long term (current) use of opiate analgesic; Z87.891 Personal history of nicotine dependence; Z98.890 Other specified postprocedural states; Z79.51 Long term (current) use of inhaled steroids
CPT/HCPCS: 88305; 45385; 43239; J2704

== ENCOUNTER → 2020-08-14 | Outpatient (CLI) | payer MEDICARE ==
--- NOTE | 2020-08-14 11:03 | XR ---
EXAMINATION TYPE: XR lumbosacral spine min 4V DATE OF EXAM: 08/14/2020 CLINICAL HISTORY: Low back pain into left leg. Radiculopathy prior. TECHNIQUE: Frontal, lateral, and oblique images of the lumbar spine are obtained. COMPARISON: CT abdomen and pelvis December 02, 2019 FINDINGS: There are 5 lumbar type vertebral bodies redemonstrated. Persistent levoconvex scoliosis c entered at L2-L3 level. Bilateral pars defect L5 level with slight grade 1 retrolisthesis L4 on L5 an d grade 1 anterolisthesis L5 on S1 redemonstrated. Vertebral body heights preserved. [id number] re multilevel disc space narrowing is redemonstrated. Multilevel vacuum disc phenomenon is redemonstr ated. Multilevel moderate to advanced spurring with large anterior spur from the L2-L3 level redemons trated multilevel spinous process hypertrophy. Multilevel uncovertebral facet degenerative changes in the mid to lower lumbar spine. Oblique images appear within normal limits. Mild overlying arterial v ascular calcification redemonstrated. Mild anterior wedging T12 level redemonstrated. IMPRESSION: As above.
== END ==
LOC: RADXRMAIN 10:08
PROVIDERS: ATTEND Family Medicine
DX: M41.86 Other forms of scoliosis, lumbar region (principal); M43.17 Spondylolisthesis, lumbosacral region; M47.26 Other spondylosis with radiculopathy, lumbar region; M46.06 Spinal enthesopathy, lumbar region
CPT/HCPCS: 72110

== ENCOUNTER → 2020-12-16 | Outpatient (CLI) | payer MEDICARE ==
[2020-12-16 10:50] VITALS: BP 120/54; PULSE 74; RESP 16; TEMP 98
--- NOTE | 2020-12-16 11:26 | P.PAINCN ---
History of Present Illness - Reason for Consult Consult date: 12/16/20 - History of Present Illness This is 80 years old male with a chronic history of severe low back pain, in addition to the lower extremity, and he is complaining of severe knee pain, patient reported that the pain started 10 years ago he denies any initiating event, he reported that the intensity of the pain increased over the last few months, the pain in the low back area and radiated to the posterior aspect of his lower extremity, so patient complaining of knee pain, increased with any activities especially walking, tried physical therapy previously without any benefit and he tried different kind of pain medication without any benefit, and is currently on Lyrica 100 mg daily at bedtime and [place] 5/325 every 6 when necessary, he denies any side effects of the medication, patient denies any motor or sensory deficits Past Medical History Past Medical History: Coronary Artery Disease (CAD), COPD, GERD/Reflux, Hearing Disorder / Deafness, Hyperlipidemia, Hypertension, Musculoskeletal Disorder, Osteoarthritis (OA), Prostate Disorder, Sleep Apnea/CPAP/BIPAP Additional Past Medical History / Comment(s): Wears Hearing aids, full dentures. Back pain, pain in legs, NT in feet. C/O bloating, constipation, N/V, loss of appetite. Poss sleep apnea. History of Any Multi-Drug Resistant Organisms: None Reported Past Surgical History: Heart Catheterization With Stent Additional Past Surgical History / Comment(s): Colonoscopy. Past Anesthesia/Blood Transfusion Reactions: No Reported Reaction Date of Last Stent Placement:: 2009 Smoking Status: Unknown if ever smoked - Past Family History Father Family Medical History: Cancer Mother Family Medical History: Cancer Daughter(s) Family Medical History: Deep Vein Thrombosis (DVT) Sister(s) Family Medical History: Cancer Additional Family Medical History / Comment(s): colon cancer Medications and Allergies Home Medications Medication Instructions Recorded Confirmed Type Aspirin [Adult Low Dose Aspirin EC] 81 mg PO HS 03/09/18 12/16/20 History Atorvastatin [Lipitor] 10 mg PO HS 03/09/18 12/16/20 History HYDROcodone/APAP 5-325MG [[place] 1 tab PO TID PRN 03/09/18 12/16/20 History 5-325] Tamsulosin [Flomax] 0.4 mg PO HS 03/09/18 12/16/20 History Omeprazole 20 mg PO HS 12/02/19 12/16/20 History Ondansetron Odt [Zofran Odt] 4 mg PO Q8HR PRN #12 tab 12/02/19 12/16/20 Rx Pregabalin 100 mg PO HS 12/02/19 12/16/20 History atenoloL [Tenormin] 50 mg PO BID 12/02/19 12/16/20 History Ferrous Sulfate [Feosol] 325 mg PO Q48H 12/20/19 12/16/20 History Allergies Allergy/AdvReac Type Severity Reaction Status Date / Time No Known Allergies Allergy Verified 12/24/19 10:25 Physical Exam Vitals: Vital Signs Temp Pulse Resp BP Pulse Ox 12/16/20 10:47 98.0 F 74 16 120/54 97 Intake and Output 12/15/20 12/16/20 12/16/20 22:59 06:59 14:59 Other: Weight 99.79 kg Physical Examinations : -Constitutiona : Cooperative , not in acute distress . -HEENT : nech : supple , no Lymphadenopathy , normal thy roid size . : eyes : no ptosis , no icterus, no photophobia . - neurologic : Cranial nerve II to XII intact , no focal neurological deffecit . -psychatric : alert , oriented X 3 , appropriate affect , intact judgment and insight . -Lymphatic : no Lymphadenopathy . - musculoskeltal : Lumber spine moter stegnth lower extremities ,thigh and legs 5/5 Right side , 5/5 Left side deep tendon reflexes : normal Knee Jerk , normal ankle Jerk lumber facet Loading Test =positive Right , positive Left Range of motion of the lumbar spine Flexion 30 degrees, extension 10 degrees strait leg raising test = positive at degree Fabere test= positive Right , and positive LT . tenderness over the Sacroiliac joint on the Right , and Left sides knee= action and extension of bilateral knees associated with severe pain Results Comments: MRI of the lumbar spine multilevel lumbar degenerative disc disease multilevel lumbar facet arthropathy and multilevel neuroforaminal narrowing L1 to L4 5 and L5-S1 Assessment and Plan Plan: Assessment and plan=1-lumbar spondylosis with lumbar facet arthropathy. 2-lumbar degenerative disc disease. 3-lumbar foraminal stenosis. 4-bilateral Knee arthralgia. he would be good candidate to have diagnostic medial branch block lumbar area at L3 , L4, L5 bilaterally possible RFA Patient will be referred for orthopedic surgeon for evaluation regarding his knee pain Time with Patient: Greater than 30 PQRS Measure Charge Sheet Measure #130: Documentation of Current Meds in Medical Chart: Patient's medications documented in chart Measure #226: Tobacco Use: Screen & Cessation Intervention: Pt not a tobacco user Measure #111: Pneumonia Vaccination: Pneumococcal vaccine NOT administered or previously given Measure #47: Advance Care Plan: Advance care planning discussed & documented, pt chose/unable to give Measure #412: Opioid Treatment Agreement: No documentation of signed opioid treatment agreement Measure #408: Opioid Therapy Follow-up Evaluation: Patient had NO f/u eval minimum every 3 months during opioid therapy Measure #317: Preventitive Care & Scrn High Bld Press & F/U: Normal blood pressure, f/u not required Measure #128: Body Mass Index (BMI) Screening & Follow-up: BMI documented ABOVE normal parameters - f/u documented Measure #131: Pain Assessment & Follow-up: Pain positive & plan documented, Follow-up scheduled Measure #431: Unhealthy Alcohol Use Preventative Care & Scrn: Patient not identified as an unhealthy alcohol user PQRS Narrative: Smoking Status Former smoker Blood Pressure 120/54 Scale Used Numeric (1 - 10) Hx Alcohol Use (MH) No Home Medications: Ambulatory Orders Aspirin [Adult Low Dose Aspirin EC] 81 mg PO HS 03/09/18 Atorvastatin [Lipitor] 10 mg PO HS 03/09/18 HYDROcodone/APAP 5-325MG [[place] 5-325] 1 tab PO TID PRN 03/09/18 Tamsulosin [Flomax] 0.4 mg PO HS 03/09/18 Omeprazole 20 mg PO HS 12/02/19 Ondansetron Odt [Zofran Odt] 4 mg PO Q8HR PRN #12 tab 12/02/19 Pregabalin 100 mg PO HS 12/02/19 atenoloL [Tenormin] 50 mg PO BID 12/02/19 Ferrous Sulfate [Feosol] 325 mg PO Q48H 12/20/19
== END ==
LOC: PNWHC3 10:31
PROVIDERS: ATTEND Specialist
DX: M47.816 Spondylosis without myelopathy or radiculopathy, lumbar region (principal); M51.36 Other intervertebral disc degeneration, lumbar region; M48.061 Spinal stenosis, lumbar region without neurogenic claudication; M25.562 Pain in left knee; M25.561 Pain in right knee; I25.10 Atherosclerotic heart disease of native coronary artery without angina pectoris; J44.9 Chronic obstructive pulmonary disease, unspecified; E78.5 Hyperlipidemia, unspecified; I10 Essential (primary) hypertension; M19.90 Unspecified osteoarthritis, unspecified site; Z79.82 Long term (current) use of aspirin; Z87.891 Personal history of nicotine dependence
CPT/HCPCS: 99211

== ENCOUNTER 2021-01-08 08:42 | Day surgery (SDC) | payer MEDICARE ==
[2021-01-07 09:15] VITALS: BMI 33.4
[~2021-01-08 08:42] MED LIST changes: -LIDOCAINE 1% (10MG/ML) FOR IV START INTRADERMA ONE; -PROPOFOL 10 MG/ML 20 ML VIAL IV ONE
[2021-01-08 09:12] VITALS: RESP 16; TEMP 97.8
[2021-01-08] MEDS ORDERED: ROPIVACAINE 5MG/ML 20ML VIAL ONE (09:29)
[2021-01-08] MEDS ORDERED: TRIAMCINOLONE ACETONIDE 40 MG/ML 1 ML VIAL ONE (09:29)
[2021-01-08] MEDS ORDERED: fentaNYL (PF) 50 MCG/ML 2 ML AMP ONE (09:29)
[2021-01-08] MEDS ORDERED: MIDAZOLAM 2 MG/2 ML VIAL ONE (09:29)
--- NOTE | 2021-01-08 09:46 | P.PCN ---
Description of Procedure: Date of Procedure: 01/08/21 Surgeon: Nimisha Humphrey Pathology: none sent Condition: stable Disposition: PACU Description of Procedure: PREOPERATIVE DIAGNOSIS : 1- Lumbar spondylosis with Facet Arthropathy without myelopathy . 2- Lumber degenerative disc disease POSTOPERATIVE DIAGNOSIS: 1- Lumbar spondylosis with Facet Arthropathy without myelopathy . 2- Lumber degenerative disc disease PROCEDURE: Diagnostic bilateral L4 -5 , and L5-S1 medial branch block under fluoroscopy Physician: Nimisha Humphrey MD ANESTHESIA: Local with 1% lidocaine; IV moderate conscious sedation by the anesthesia Department . EBL: Negligible COMPLICATION: None. PROCEDURE INDICATION: Chronic low back pain secondary to Facet arthropathy unresponsive to conservative treatment. PROCEDURE DESCRIPTION: the patient was seen and identified in the preop holding area , risks and benefits and possible complications of the procedure and alternatives were discussed with the patient, and the patient agreed to proceed with the procedure and signed the consent. IV was started and vital signs monitored during the procedure and fluoroscopy was used to maximize the benefit and accuracy of the needle placement, sedation was given to decrease patient anxiety, patient was taken to the procedure room and placed in prone position vital signs monitored. The patient was brought into the procedure room and placed in prone position. Skin was prepped with Chloraprep and draped in a sterile manner. Lidocaine 1% was used to numb the skin up at the target points that were chosen as follows: at the L5-S1 level which corresponds to the dorsal ramus of L5 the target points were at the superior medial aspect of the sacral ala on each side of the spine on the AP view of fluoroscopy, and for theL3 and L4 medial branches the target points were the connection between the transverse process and the superior to go process of L4 and L5 respectively on the oblique views of fluoroscopy. I used 22-gauge 3-1/2 inch Quincke spinal needles for this procedure and after contacting bone at the target points mentioned above I injected 1 mL of a mixture of Kenalog 40 mg +5 MLS of Ropivacaine 0.5% PF . Patient tolerated procedure well. At the end of the procedure the needles removed and a bandage applied after the skin was cleaned the cleaning solution. patient was then taken to the recovery room in stable condition and monitored in the recovery room for 20-30 minutes and discharged home in stable condition after discharge criteria met . A copy of the needle placement picture was saved to the C-arm machine.
[2021-01-08] MEDS ORDERED: IV FLUID CONTINUATION 1,000 ML IV ONE (09:49)
[2021-01-08 10:13] VITALS: BP 126/74; PULSE 63
--- NOTE | 2021-01-08 12:38 | FL ---
EXAMINATION TYPE: FL guided pain mgmt statistic DATE OF EXAM: 01/08/2021 FLUOROSCOPY Fluoroscopy time of 9 seconds was used during bilateral lumbar facet block. 4 image/s document/s the procedure.
== END 2021-01-08 10:20 ==
LOC: ORPAIN 08:42
PROVIDERS: ATTEND Anesthesiology
DX: G89.29 Other chronic pain (principal); M47.816 Spondylosis without myelopathy or radiculopathy, lumbar region; M51.36 Other intervertebral disc degeneration, lumbar region; I10 Essential (primary) hypertension; G47.33 Obstructive sleep apnea (adult) (pediatric); I25.10 Atherosclerotic heart disease of native coronary artery without angina pectoris; E78.5 Hyperlipidemia, unspecified; J44.9 Chronic obstructive pulmonary disease, unspecified; N40.0 Benign prostatic hyperplasia without lower urinary tract symptoms; K21.9 Gastro-esophageal reflux disease without esophagitis; Z79.899 Other long term (current) drug therapy
CPT/HCPCS: 64493; 64494; J2250; J3301; J3010; J2795

== ENCOUNTER → 2021-02-08 | Outpatient (CLI) | payer MEDICARE ==
[2021-02-08 09:17] VITALS: BP 144/86; PULSE 69; RESP 18; TEMP 97.8
--- NOTE | 2021-02-08 09:23 | P.PAINPG ---
Subjective Progress Note Date: 02/08/21 This is 80 years old male with a chronic history of severe low back pain, in addition to the lower extremity, and he is complaining of severe knee pain, patient reported that the pain started 10 years ago he denies any initiating event, he reported that the intensity of the pain increased over the last few months, the pain in the low back area and radiated to the posterior aspect of his lower extremity, so patient complaining of knee pain, increased with any activities especially walking, tried physical therapy previously without any benefit and he tried different kind of pain medication without any benefit, and is currently on Lyrica 100 mg daily at bedtime and [place] 5/325 every 6 when necessary, he denies any side effects of the medication, patient denies any motor or sensory deficits. We recently performed bilateral L4-L5 and L5-S1 medial branch block x1. Patient noted that he got 90% relief from the injection. He continues to attempt home exercise therapy as well as stretching at home. He would like to do physical therapy in the future if his pain is well controlled at this time h is pain is too severe to do that. Physical Examinations : -[place]stitutiona : Cooperative , not in acute distress . -HEENT : nech : supple , no Lymphadenopathy , normal thyroid size . : eyes : no ptosis , no icterus, no photophobia . - neurologic : Cranial nerve II to XII intact , no focal n eurological deffecit . -psychatric : alert , oriented X 3 , appropriate affect , intact judgment and insight . -Lymphatic : no Lymphadenopathy . - musculoskeltal : Lumber spine moter stegnth lower extremities ,thigh and legs 5/5 Right side , 5/5 Left side deep tendon reflexes : normal Knee Jerk , normal ankle Jerk lumber facet Loading Test =positive Ri ght , positive Left Range of motion of the lumbar spine Flexion 30 degrees, extension 10 degrees strait leg raising test = positive at degree Fabere test= positive Right , and positive LT . tenderness over the Sacroiliac joint on the Right , and Left sides knee= action and extension of bilateral knees associated with severe pain Results Comments: MRI of the lumbar spine multilevel lumbar degenerative disc disease multilevel lumbar facet arthropathy and multilevel neuroforaminal narrowing L1 to L4 5 and L5-S1 Assessment and Plan Plan: Assessment and plan=1-lumbar spondylosis with lumbar facet arthropathy. 2-lumbar degenerative disc disease. 3-lumbar foraminal stenosis. 4-bilateral Knee arthralgia. Repeat bilateral L4-5 and L5-S1 MBB x2 I have spent 25 minutes on patient care today. The time was used to review the medical records including relevant urine studies and prescription history, review of the available imaging, evaluation and examination of the patient, coordination of care with the medical staff and if applicable referring physicians, as well as creation of the medical record. PQRS Measure Charge Sheet Measure #130: Documentation of Current Meds in Medical Chart: Patient's medications documented in chart Measure #226: Tobacco Use: Screen & Cessation Intervention: Pt not a tobacco user Measure #111: Pneumonia Vaccination: Pneumococcal vaccine NOT administered or previously given Measure #47: Advance Care Plan: Advance care planning discussed & documented, pt chose/unable to give Measure #412: Opioid Treatment Agreement: No documentation of signed opioid treatment agreement Measure #408: Opioid Therapy Follow-up Evaluation: Patient had NO f/u eval minimum every 3 months during opioid therapy Measure #317: Preventitive Care & Scrn High Bld Press & F/U: Normal blood pressure, f/u not required Measure #128: Body Mass Index (BMI) Screening & Follow-up: BMI documented ABOVE normal parameters - f/u documented Measure #131: Pain Assessment & Follow-up: Pain positive & plan documented, Follow-up scheduled Measure #431: Unhealthy Alcohol Use Preventative Care & Scrn: Patient not identified as an unhealthy alcohol user PQRS Narrative: PQRS Measure Charge Sheet PQRS Narrative: Smoking Status Former smoker Pain Intensity [None] 0 Scale Used Numeric (1 - 10) Hx Alcohol Use (MH) No Home Medications: Ambulatory Orders Aspirin [Adult Low Dose Aspirin EC] 81 mg PO HS 03/09/18 Atorvastatin [Lipitor] 10 mg PO HS 03/09/18 Tamsulosin [Flomax] 0.4 mg PO HS 03/09/18 Omeprazole 20 mg PO HS 12/02/19 Ondansetron Odt [Zofran Odt] 4 mg PO Q8HR PRN #12 tab 12/02/19 Pregabalin 100 mg PO HS 12/02/19 atenoloL [Tenormin] 50 mg PO BID 12/02/19 Ferrous Sulfate [Feosol] 325 mg PO Q48H 12/20/19 Losartan [Cozaar] 25 mg PO DAILY 01/07/21 Controlled Substance Measures - Controlled Substance Measures Is patient prescribed a controlled substance at discharge?: No
== END ==
LOC: PNWHC3 09:07
PROVIDERS: ATTEND Anesthesiology
DX: M47.816 Spondylosis without myelopathy or radiculopathy, lumbar region (principal); M51.36 Other intervertebral disc degeneration, lumbar region; M48.061 Spinal stenosis, lumbar region without neurogenic claudication; M25.561 Pain in right knee; M25.562 Pain in left knee; Z87.891 Personal history of nicotine dependence
CPT/HCPCS: 99211

== ENCOUNTER 2021-03-19 08:29 | Day surgery (SDC) | payer MEDICARE ==
[2021-03-19] MEDS ORDERED: LIDOCAINE 1% (10MG/ML) FOR IV START INTRADERMA ONE (09:00)
[2021-03-19 09:05] VITALS: RESP 16; TEMP 97.8
[2021-03-19] MEDS ORDERED: MIDAZOLAM 2 MG/2 ML VIAL ONE (09:07)
[2021-03-19] MEDS ORDERED: ROPIVACAINE 5MG/ML 20ML VIAL ONE (09:07)
[2021-03-19] MEDS ORDERED: fentaNYL (PF) 50 MCG/ML 2 ML AMP ONE (09:07)
[2021-03-19] MEDS ORDERED: TRIAMCINOLONE ACETONIDE 40 MG/ML 1 ML VIAL ONE (09:07)
--- NOTE | 2021-03-19 09:29 | P.PCN ---
Date of Procedure: 03/19/21 Description of Procedure: Description of Procedure: Date of Procedure: 01/08/21 Surgeon: Nimisha Humphrey Pathology: none sent Condition: stable Disposition: PACU Description of Procedure: PREOPERATIVE DIAGNOSIS : 1- Lumbar spondylosis with Facet Arthropathy without myelopathy . 2- Lumber degenerative disc disease POSTOPERATIVE DIAGNOSIS: 1- Lumbar spondylosis with Facet Arthropathy without myelopathy . 2- Lumber degenerative disc disease PROCEDURE: Diagnostic bilateral L4 -5 , and L5-S1 medial branch block under fluoroscopy Physician: Nimisha Humphrey MD ANESTHESIA: Local with 1% lidocaine; IV moderate conscious sedation by the anesthesia Department . EBL: Negligible COMPLICATION: None. PROCEDURE INDICATION: Chronic low back pain secondary to Facet arthropathy unresponsive to conservative treatment. PROCEDURE DESCRIPTION: the patient was seen and identified in the preop holding area , risks and benefits and possible complications of the procedure and alternatives were discussed with the patient, and the patient agreed to proceed with the procedure and signed the consent. IV was started and vital signs monitored during the procedure and fluoroscopy was used to maximize the benefit and accuracy of the needle placement, sedation was given to decrease patient anxiety, patient was taken to the procedure room and placed in prone position vital signs monitored. The patient was brought into the procedure room and placed in prone position. Skin was prepped with Chloraprep and draped in a sterile manner. Lidocaine 1% was used to numb the skin up at the target points that were chosen as follows: at the L5-S1 level which corresponds to the dorsal ramus of L5 the target points were at the superior medial aspect of the sacral ala on each side of the spine on the AP view of fluoroscopy, and for theL3 and L4 medial branches the target points were the connection between the transverse process and the superior to go process of L4 and L5 respectively on the oblique views of fluoroscopy. I used 22-gauge 3-1/2 inch Quincke spinal needles for this procedure and after contacting bone at the target points mentioned above I injected 1 mL of a mixture of Kenalog 40 mg +5 MLS of Ropivacaine 0.5% PF . Patient tolerated procedure well. At the end of the procedure the needles removed and a bandage applied after the skin was cleaned the cleaning solution. patient was then taken to the recovery room in stable condition and monitored in the recovery room for 20-30 minutes and discharged home in stable condition after discharge criteria met . A copy of the needle placement picture was saved to the C-arm machine.
[2021-03-19] MEDS ORDERED: IV FLUID CONTINUATION 800 ML IV ONE (09:37)
[2021-03-19 09:53] VITALS: BP 131/79; PULSE 61
--- NOTE | 2021-03-19 10:19 | FL ---
Fluoroscopy HISTORY: Pain 11 seconds fluoroscopy time supplied to the referring clinician. 5 intraoperative C-arm images docum ent the procedure. See dictated report from anesthesia.
== END 2021-03-19 10:07 | disposition home or self-care (01) ==
LOC: ORPAIN 08:29
PROVIDERS: ATTEND Anesthesiology
DX: G89.29 Other chronic pain (principal); M47.816 Spondylosis without myelopathy or radiculopathy, lumbar region
CPT/HCPCS: 64493; 64494; J2250; J3301; J3010; J2795

== ENCOUNTER → 2021-04-07 | Outpatient (CLI) | payer MEDICARE ==
[2021-04-07 11:01] VITALS: BP 145/86; PULSE 70; RESP 18; TEMP 98.2
--- NOTE | 2021-04-07 11:16 | P.PN ---
Subjective Progress Note Date: 04/07/21 Principal diagnosis: Lumbar spondylosis and arthropathy without myelopathy Cortez is a 81-year-old male presented to clinic today for follow-up appointment after his second confirmatory medial branch block. He had a lumbar medial branch block bilaterally at L4 5 and L5-S1. Since that procedure his greater than 80% pain improvement as well as being able to increase his activity at home. He also reports that he is been able to ride a stationary bike again up to 15 and 20 minutes without pain. Today he reports his pain is 1 out of 10. He would like to go ahead and move forward with the bilateral radiofrequency ablation at L4 5 and L5-S1. He denies any bowel or bladder dysfunction, saddle anesthesia, or any other red flag symptoms. Objective - Vital Signs Vital signs: Vital Signs Temp 98.2 F 04/07/21 10:54 Pulse 70 04/07/21 10:54 Resp 18 04/07/21 10:54 BP 145/86 04/07/21 10:54 Pulse Ox - Exam Physical Examinations : -[place]stitution[place] : Cooperative , not in acute distress . -HEENT : nech : supple , no Lymphadenopathy , normal thyroid size . : eyes : no ptosis , no icterus, no photophobia . - neurologic : Cranial nerve II to XII intact , no focal neurological deffecit . -psychatric : alert , oriented X 3 , appropriate affect , intact judgment and insight . -Lymphatic : no Lymphadenopathy . - musculoskeltal : Lumber spine moter stegnth lower extremities ,thigh and legs 5/5 Right side , 5/5 Left side deep tendon reflexes : normal Knee Jerk , normal ankle Jerk lumber facet Loading Test =positive Right , positive Left Range of motion of the lumbar spine Fl exion 30 degrees, extension 10 degrees strait leg raising test = negative Fabere test= positive Right , and positive LT . Limited tenderness over the Sacroiliac joint on the Right , and Left sides Seated flexion test= positive right ,and positive Left . Distraction test= negative Sacroiliac compression test= negative Assessment and Plan Assessment: Assessment: Lumbar spondylosis and arthropathy without myelopathy Plan: Patient had significant relief greater than 80% with his diagnostic and confirmatory medial branch block at L4 5 and L5-S1. Go ahead and schedule for radiofrequency ablation bilateral at L4 5 and L5-S1. - PQRS measures = - Patient's medications are documented in the chart. -Tobacco use is negative -Patient's has not received pneumococcal vaccine. -Advanced care planning discussed, patient not eligible. -Opiate contract not signed. -Pain positive and follow-up visit/procedure is scheduled. -Patient's blood pressure measured [ 145/86 ] , and documented in the record ,and patient will follow up with the primary care. -Patient's weight was measured and body mass index [ ] above the,within the normal limits and counseling was done. and patient instructed to follow-up with the primary care physician. -Patient was not identified as an unhealthy alcohol user Time with Patient: Less than 30
== END ==
LOC: PNWHC3 09:36
PROVIDERS: ATTEND Student in an Organized Health Care Education/Training Program
DX: M47.816 Spondylosis without myelopathy or radiculopathy, lumbar region (principal); Z87.891 Personal history of nicotine dependence
CPT/HCPCS: 99211

== ENCOUNTER → 2021-05-28 | Day surgery (SDC) | payer MEDICARE ==
[2021-05-27 09:55] VITALS: BMI 33.4
[~2021-05-28] MED LIST changes: +.fentaNYL (PF) 50 MCG/ML 2 ML AMP ONE; +MIDAZOLAM 2 MG/2 ML VIAL ONE; +ROPIVACAINE 5MG/ML 20ML VIAL ONE; +methylPREDNISolone ACETATE 40 MG/ML 1 ML VIAL ONE
[2021-05-28 12:54] VITALS: TEMP 98
--- NOTE | 2021-05-28 14:20 | P.PCN ---
Date of Procedure: 05/28/21 Procedure(s) Performed: PREOPERATIVE DIAGNOSIS: 1-Lumbar Spondylosis with Facet Arthropathy without myelopathy. 2- Lumber degenerative disc disease. POSTOPERATIVE DIAGNOSIS: 1- Lumbar Spondylosis with Facet Arthropathy without myelopathy. 2- Lumber degenerative disc disease. PROCEDURES : Bilateral Radiofrequency thermocoagulation, L3 , L4 , and L5 medial branch, with fluoroscopic guidance (fluoroscopy images available in the radiology department) ( to denervate the facet joint at Bilateral L4-5 ,and L5-S1 levels ). ANESTHESIA: Monitered anesthesia care ,as per anesthesia department.. EBL: Minimal PROCEDURE INDICATION: The patient with low back pain secondary to lumbar facet arthropathy who had more than 50% relief of her pain with previous diagnostic lumbar medial branch block with bupivacaine. PROCEDURE DESCRIPTION / TECHNIQUE: The patient was seen and identified in the preoperative area. Risks, benefits, complications, including but not limited to risk of infection ,bleeding , allergic reactions to the medications and no complete pain releife , and alternatives were discussed with the patient, the patient agreed to proceed with the procedure and signed the consent. IV was started. Vital signs remained stable throughout the procedure. Patient was taken to the OR and time out was completed. The patient was placed in the prone position on the procedure table. The lumber area was prepped and draped in the usual sterile fashion. . Vital signs were closely monitored during the procedure .IV sedation was used during the procedure to decrease patients anxiety. Using AP and then oblique fluoroscopy, the ``eye of the Idris dog corresponding to the connection between the superior and transverse articular processes of right L3, L4, and L5 were identified, marked, and localized with 1% lidocaine. Subsequently, a 18 -wd radiofrequency cannula with a 10- mm active tip was advanced guided by fluoroscopy to each of the``eyes of the Idris dog at right L3, L4, and L5. Each site then underwent sensory testing at 50 Hz and 0 to 1 volt and motor testing at 2.5 Hz and 0 to 3 volt with local stimulation, but no radicular symptoms down the legs. Thereafter each sites underwent radiofrequency thermocoagulation at 80 degrees celsius for 90 seconds after injecting 0.5 ml of PF Ropivacaine 1ml, then after the thermocoagulation done , 1 ml of the block solution containing Depo-Medrol 30 mg and 3 ml of Ropivacaine 0.5% was injected at the right L3 , L4 , and L5 , levels after negative aspiration of CSF and blood and with no paresthesias. Cannulas were retracted while injecting lidocaine 1% until the needle is out. The same procedure was repeated at the level of Left L3, L4, and L5 levels. At the end of the procedure, the skin was cleansed and bandages were applied. COMPLICATIONS: No acute complications. DISPOSITION / PLANS: The patient was placed in a supine position and transferred to the recovery area in a stable condition for observation and was discharged from the recovery room after meeting discharge criteria. Home discharge instructions given to the patient by the staff. The patient was reexamined prior to discharge. The patient will schedule a follow up in the clinic in 2-4 weeks.
--- NOTE | 2021-05-28 14:28 | FL ---
EXAMINATION TYPE: FL guided pain mgmt statistic DATE OF EXAM: 05/28/2021 HISTORY: Fluoroscopy time 31 seconds of fluoroscopy provided. IMPRESSION: 1. Fluoroscopy time.
[2021-05-28 14:52] VITALS: BP 144/80; PULSE 60; RESP 17
== END ==
LOC: ORPAIN 12:19
PROVIDERS: ATTEND Specialist
DX: M54.16 Radiculopathy, lumbar region (principal); M47.816 Spondylosis without myelopathy or radiculopathy, lumbar region; M51.36 Other intervertebral disc degeneration, lumbar region; I10 Essential (primary) hypertension; E78.5 Hyperlipidemia, unspecified; G47.33 Obstructive sleep apnea (adult) (pediatric); J44.9 Chronic obstructive pulmonary disease, unspecified; K21.9 Gastro-esophageal reflux disease without esophagitis; Z79.899 Other long term (current) drug therapy
CPT/HCPCS: 64635; 64636; J2250; J1030; J3010; J2795

== ENCOUNTER → 2021-06-17 | Outpatient (CLI) | payer MEDICARE ==
[2021-06-17 09:37] VITALS: BP 129/79; PULSE 80; RESP 18; TEMP 97.7
--- NOTE | 2021-06-17 09:45 | P.PAINPG ---
Subjective Progress Note Date: 06/17/21 Principal diagnosis: Lumbar back pain Mr. Flores is a 81 -year-old pleasant male came to the [facility] pain clinic for postprocedure evaluation . Patient has ongoing pain for many years. Patient had bilateral lumbar L4-L5, and L5-S1 radiofrequency ablation done on 05/28/2021 . Patient had more than 80% pain relief. After the procedure patient is actively doing exercises as tolerated .the patient also felt comfortable pain radiating to his legs up to the knee area. Patient describes pain is aching, throbbing, constant type of pain. Pain is radiating to below the knee area sometimes. Patient rated pain levels are 2 out of 10 in severity. With the help of medications, exercise pain levels are 0-2 out of 10 in severity. Activities making pain worse. Medications, resting, intervention procedures helping in relieving patient's pain. Patient pain some days better than others. Overall activities decreased secondary to pain. Because of the pain sometimes patient is feeling lack of sleep, interest, and energy. Denied any side effects with the medications. Denied any bowel or bladder problems at this time. Patient denies any suicidal or homicidal ideations intent or plan. Patient denies any auditory or visual hallucinations. Patient denied any red flag symptoms related to pain. 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 Sensation grossly intact Lower extremity: Normal strength, and decreased range of motion secondary to pain Lumbar spine: Paravertebral tenderness: positive Lumbar facet load test : positive Sacroiliac joint tenderness: Negative - Constitutional Constitutional Comment(s): 13 point review of symptoms negative except as mentioned in the history of present illness Assessment and Plan Assessment: Lumbar spondylosis without myelopathy Myofascial pain syndrome Mild spinal stenosis from L1 to S1 Marked neural foraminal stenosis at L1-L2, L4-L5, and L5-S1 levels bilaterally Grade 1-2 anterolisthesis of L5 on S1 No lumbar disc herniation, and no lumbar spine fractures Plan: #1 Diagnoses, prognosis, and multiple treatment options including but not limited to physical therapy, interventional therapy, adjunct medication therapy, narcotic medication, and surgical options were discussed with the patient. And all questions were answered to the patient's satisfaction. #2 treatment plan agreement : Patient was thoroughly discussed regarding the treatment options, alternatives, and importance of exercises as tolerated. Patient clearly understood. #3 Patient was counseled on importance of regular exercise. Including rich chi, aerobic exercises as tolerated. Which helps for chronic pain, and overall well- being. #4 investigations: MAPS- reviewed , urine drug test-none #5 diagnostic tests: None #6 consultation : Continue physical therapy exercises at home # 7 interventional procedures: None #8 medications None # 10 TENS unit's #11 disposition: scheduled to follow up with pain clinic as needed Time with Patient: Less than 30 PQRS Measure Charge Sheet Measure #130: Documentation of Current Meds in Medical Chart: Patient's m edications documented in chart Measure #226: Tobacco Use: Screen & Cessation Intervention: Pt not a tobacco user Measure #111: Pneumonia Vaccination: Pneumococcal vaccine administered or previously received Measure #47: Advance Care Plan: Advance care planning discussed & documented, plan or surrogate given Measure #412: Opioid Treatment Agreement: No documentation of signed opioid treatment agreement Measure #408: Opioid Therapy Follow-up Evaluation: Patient had NO f/u eval minimum every 3 months during opioid therapy Measure #317: Preventitive Care & Scrn High Bld Press & F/U: Pre-hypertensive or hypertensive BP documented, pt will f/u with PCP Measure #128: Body Mass Index (BMI) Screening & Follow-up: BMI documented ABOVE normal parameters - f/u documented Measure #131: Pain Assessment & Follow-up: Pain positive & plan documented Measure #431: Unhealthy Alcohol Use Preventative Care & Scrn: Patient not identified as an unhealthy alcohol user Mode of Arrival: Ambulatory PQRS Narrative: Smoking Status Former smoker Blood Pressure 129/79 Pain Intensity [Lower Back] 2 Scale Used Numeric (1 - 10) Hx Alcohol Use (MH) No Home Medications: Ambulatory Orders Aspirin [Adult Low Dose Aspirin EC] 81 mg PO HS 03/09/18 Atorvastatin [Lipitor] 10 mg PO HS 03/09/18 Tamsulosin [Flomax] 0.4 mg PO HS 03/09/18 Omeprazole 20 mg PO HS 12/02/19 Pregabalin 100 mg PO HS 12/02/19 atenoloL [Tenormin] 50 mg PO BID 12/02/19 Ferrous Sulfate [Feosol] 325 mg PO DAILY 12/20/19 Losartan [Cozaar] 25 mg PO DAILY 01/07/21 Controlled Substance Measures - Controlled Substance Measures Is patient prescribed a controlled substance at discharge?: No
== END ==
LOC: PNWHC3 09:04
DX: M47.816 Spondylosis without myelopathy or radiculopathy, lumbar region (principal); M79.18 Myalgia, other site; M48.07 Spinal stenosis, lumbosacral region; Z87.891 Personal history of nicotine dependence
CPT/HCPCS: 99211

== ENCOUNTER → 2021-09-24 | Outpatient (CLI) | payer MEDICARE ==
[2021-09-24 18:28] LABS: Basophils # (A) 0.04 X 10*3/uL (0.00-0.10); Basophils % (A) 0.6 %; Eosinophils # (A) 0.11 X 10*3/uL (0.04-0.35); Eosinophils % (A) 1.6 %; HCT 45.1 % (39.6-50.0); HGB 14.2 g/dL (13.0-17.0); Immature Grans, Automated 0.3 %; Lymphocytes % (A) 24.9 %; MCH 28.7 pg (27.0-32.0); MCHC 31.5 g/dL (32.0-37.0); MCV 91.3 fL (80.0-97.0); Mean Platelet Volume 12.2 fL (9.5-12.2); Monocytes # (A) 0.61 X 10*3/uL (0.20-1.00); Monocytes % (A) 8.9 %; NRBC Per 100 WBC 0 /100 WBCS (0.0-0.0); Neutrophils # (A) 4.36 X 10*3/uL (1.80-7.70); Neutrophils % (A) 63.7 %; Platelet Count 139 X 10*3/uL (140-440); RBC 4.94 X 10*6/uL (4.40-5.60); RDW 12.9 % (11.5-14.5); WBC 6.84 X 10*3/uL (4.50-10.00)
[2021-09-24 20:09] LABS: African American GFR (CKD) 82.5 (60.0-200.0); Anion Gap 9.6 mmol/L (10.00-18.00); BUN/Creat Ratio 10.67 Ratio (12.00-20.00); Blood Urea Nitrogen 10.5 mg/dL (9.0-27.0); Calcium 10.7 mg/dL (8.7-10.3); Carbon Dioxide 26.1 mmol/L (20.0-27.5); Non-African American GFR(CKD) 71.2 (60.0-200.0); Potassium 4.7 mmol/L (3.5-5.5)
== END | disposition home or self-care (01) ==
LOC: LABPAT 09:54
PROVIDERS: ATTEND Urology
DX: Z01.812 Encounter for preprocedural laboratory examination (principal); N40.1 Benign prostatic hyperplasia with lower urinary tract symptoms
CPT/HCPCS: 36415; 80048; 85025

== ENCOUNTER 2021-09-30 07:08 | Day surgery (SDC) | payer MEDICARE ==
--- NOTE | 2021-09-27 16:46 | P.GSHP ---
History of Present Illness H&P Date: 09/27/21 Chief Complaint: Urge incontinence The patient is an 81-year-old white male who takes tamsulosin and finasteride for BPH. However, he continues to report urinary frequency, intermittency, and urgency with urge incontinence. Cystoscopy showed bilobar BPH. The postvoid residual is 110 mL. Alternative treatment options have been reviewed, both medical and surgical. He has elected to undergo a Urolift procedure. - Cardiovascular Cardiovascular: Reports high blood pressure - Genitourinary (Male) Genitourinary: Reports as per HPI Past Medical History Past Medical History: Coronary Artery Disease (CAD), COPD, GERD/Reflux, Hearing Disorder / Deafness, Hyperlipidemia, Hypertension, Musculoskeletal Disorder, Osteoarthritis (OA), Prostate Disorder, Sleep Apnea/CPAP/BIPAP Additional Past Medical History / Comment(s): Wears Hearing aids, full dentures. Back pain, pain in legs, NT in feet. C/O bloating, constipation, N/V, loss of appetite. Poss sleep apnea. History of Any Multi-Drug Resistant Organisms: None Reported Past Surgical History: Heart Catheterization With Stent Additional Past Surgical History / Comment(s): Colonoscopy. 01/04/21 cortisone injection lt knee. PAIN CLINIC PROCEDURE Past Anesthesia/Blood Transfusion Reactions: No Reported Reaction Date of Last Stent Placement:: 2009 Past Psychological History: No Psychological Hx Reported Smoking Status: Former smoker Past Alcohol Use History: None Reported Additional Past Alcohol Use History / Comment(s): SMOKING AT AGE 19, QUIT AT AGE 24, SMOKED A CIGAR A DAY Past Drug Use History: None Reported Additional Drug Use History / Comment(s): EDIBLE GUMMIES FOR PAIN AT NIGHT - Past Family History Father Family Medical History: Cancer Mother Family Medical History: Cancer Daughter(s) Family Medical History: Deep Vein Thrombosis (DVT) Sister(s) Family Medical History: Cancer Additional Family Medical History / Comment(s): colon cancer Medications and Allergies Home Medications Medication Instructions Recorded Confirmed Type Aspirin [Adult Low Dose Aspirin EC] 81 mg PO HS 03/09/18 06/16/21 History Atorvastatin [Lipitor] 10 mg PO HS 03/09/18 06/16/21 History Tamsulosin [Flomax] 0.4 mg PO HS 03/09/18 06/16/21 History Omeprazole 20 mg PO HS 12/02/19 06/16/21 History Pregabalin 100 mg PO HS 12/02/19 06/16/21 History atenoloL [Tenormin] 50 mg PO BID 12/02/19 06/16/21 History Ferrous Sulfate [Feosol] 325 mg PO DAILY 12/20/19 06/16/21 History Losartan [Cozaar] 25 mg PO DAILY 01/07/21 06/16/21 History Allergies Allergy/AdvReac Type Severity Reaction Status Date / Time No Known Allergies Allergy Verified 06/16/21 13:30 Surgical - Exam - General well developed, well nourished, no distress - Respiratory normal respiratory effort - Abdomen Abdomen: soft, non tender, no guarding, no rigid, no rebound Hernia: inguinal, umbilical - Genitourinary normal penis with no external lesions, testicles non-tender right: scrotal mass/hydrocele - Rectum Rectum: normal sphincter tone, no masses, other (Prostate moderately enlarged and smooth) - Psychiatric oriented to time, oriented to person, oriented to place, speech is normal, memory intact Assessment and Plan (1) Benign prostatic hyperplasia with lower urinary tract symptoms Status: Acute Code(s): N40.1 - BENIGN PROSTATIC HYPERPLASIA WITH LOWER URINARY TRACT SYMP SNOMED Code(s): 065908369 Plan: Cystoscopy with Urolift. The procedure has been reviewed in detail with the patient. He is aware of potential risks, which include anesthesia, bleeding, infection, postoperative dysuria, and urinary retention. He also understands the possibility that his symptoms will fail to improve.
[2021-09-29 09:25] VITALS: BMI 38.9
[~2021-09-30 07:08] MED LIST changes: -.fentaNYL (PF) 50 MCG/ML 2 ML AMP ONE; +DEXAMETHASONE SOD PHOSPHATE 4 MG/ML 1 ML VIAL IV ONE; +HYDROmorphone 0.5 MG/0.5 ML SYRINGE IVP PRN; -MIDAZOLAM 2 MG/2 ML VIAL ONE; +ONDANSETRON 4 MG/2 ML VIAL IVP ONE; -ROPIVACAINE 5MG/ML 20ML VIAL ONE; -methylPREDNISolone ACETATE 40 MG/ML 1 ML VIAL ONE
[2021-09-30] MEDS ORDERED: PROPOFOL 10 MG/ML 20 ML VIAL IV ONE (08:32)
[2021-09-30] MEDS ORDERED: fentaNYL (PF) 50 MCG/ML 2 ML AMP ONE (08:32)
[2021-09-30] MEDS ORDERED: LIDOCAINE 1% INJ 10MG/ML (20 ML MDV) ONE (08:32)
[2021-09-30] MEDS ORDERED: ePHEDrine 50 MG/ML 1 ML VIAL ONE (08:32)
[2021-09-30 09:58] VITALS: TEMP 97
--- NOTE | 2021-09-30 10:12 | P.OP ---
Date of Procedure: 09/30/21 Preoperative Diagnosis: BPH with Obstruction Postoperative Diagnosis: Same Procedure(s) Performed: Cystoscopy with Urolift Anesthesia: RONAL Surgeon: Elias Alva Estimated Blood Loss (ml): 10 IV fluids (ml): 800 Pathology: none sent Condition: stable Disposition: PACU Indications for Procedure: The patient is an 81-year-old white male who takes tamsulosin and finasteride for BPH. However, he continues to report urinary frequency, intermittency, and urgency with urge incontinence. Cystoscopy showed bilobar BPH. The postvoid residual is 110 mL. Alternative treatment options have been reviewed, both medical and surgical. He has elected to undergo a Urolift procedure. Operative Findings: Open fossa created. Description of Procedure: The patient was taken in the operating room and placed in the dorsolithotomy position. The external genitalia was prepped and draped sterilely. The 30 lens was used to introduce the Stortz cystoscopic sheath through the urethra and into the bladder under direct vision. The anterior urethra appeared normal. The prostatic urethra showed evidence of complete obstruction with a bilobar configuration. Both ureteral orifice his were of normal anatomic location and configuration. No tumors or foreign bodies were seen. The bladder was mildly trabeculated. Urolift implants were placed at the 10:00 and 2:00 positions approximately 1 cm distal to the vesical neck. 2 additional Urolift implants were placed at the 9:00 and 3:00 positions at the level of the verumontanum. 1 additional implants was placed on each side to achieve an open prostatic fossa. 4 implants failed to adequately deploy due to bone interference on the right side. Hemostasis was very good. The bladder was emptied and the cystoscope removed. The patient tolerated the procedure well was taken to the recovery room in stable condition.
[2021-09-30 11:58] VITALS: RESP 16
[2021-09-30 14:35] VITALS: BP 154/67; PULSE 63
== END 2021-09-30 14:35 | disposition home or self-care (01) ==
LOC: OR 07:08
PROVIDERS: ATTEND Urology
DX: N40.1 Benign prostatic hyperplasia with lower urinary tract symptoms (principal); N13.8 Other obstructive and reflux uropathy; R39.15 Urgency of urination; R35.0 Frequency of micturition; I25.10 Atherosclerotic heart disease of native coronary artery without angina pectoris; I10 Essential (primary) hypertension; E78.5 Hyperlipidemia, unspecified; J44.9 Chronic obstructive pulmonary disease, unspecified; K21.9 Gastro-esophageal reflux disease without esophagitis; G47.33 Obstructive sleep apnea (adult) (pediatric); M54.9 Dorsalgia, unspecified; K59.00 Constipation, unspecified; M19.90 Unspecified osteoarthritis, unspecified site; Z95.5 Presence of coronary angioplasty implant and graft; Z87.891 Personal history of nicotine dependence; Z79.82 Long term (current) use of aspirin; Z79.899 Other long term (current) drug therapy; Z97.4 Presence of external hearing-aid; Z97.2 Presence of dental prosthetic device (complete) (partial); Z80.0 Family history of malignant neoplasm of digestive organs
CPT/HCPCS: L8699; J1100; J0690; J2405; J2001; J3010; J2704; C9740

== ENCOUNTER → 2022-04-22 | Outpatient (CLI) | payer MEDICARE ==
[2022-04-22 14:12] LABS: Basophils # (A) 0.03 X 10*3/uL (0.00-0.10); Basophils % (A) 0.5 %; Eosinophils # (A) 0.13 X 10*3/uL (0.04-0.35); Eosinophils % (A) 2.2 %; HCT 41.5 % (39.6-50.0); HGB 13.6 g/dL (13.0-17.0); Immature Grans, Automated 0.5 %; Lymphocytes # (A) 1.43 X 10*3/uL (0.90-5.00); Lymphocytes % (A) 24.7 %; MCH 29.2 pg (27.0-32.0); MCHC 32.8 g/dL (32.0-37.0); MCV 89.2 fL (80.0-97.0); Mean Platelet Volume 12.8 fL (9.5-12.2); Monocytes # (A) 0.62 X 10*3/uL (0.20-1.00); Monocytes % (A) 10.7 %; NRBC Per 100 WBC 0 /100 WBCS (0.0-0.0); Neutrophils # (A) 3.54 X 10*3/uL (1.80-7.70); Neutrophils % (A) 61.4 %; Platelet Count 123 X 10*3/uL (140-440); RBC 4.65 X 10*6/uL (4.40-5.60); RDW 13.1 % (11.5-14.5); WBC 5.78 X 10*3/uL (4.50-10.00)
[2022-04-22 14:45] LABS: ALT 20 U/L (10-49); AST 18 U/L (14-35); African American GFR (CKD) 71.6 (60.0-200.0); Albumin/Globulin Ratio 2.35 (1.60-3.17); Alkaline Phosphatase 142 U/L (41-126); BUN/Creat Ratio 10.82 Ratio (12.00-20.00); Blood Urea Nitrogen 11.9 mg/dL (9.0-27.0); Calcium 10.4 mg/dL (8.7-10.3); Carbon Dioxide 26.8 mmol/L (20.0-27.5); Chloride 107 mmol/L (96-109); Chol/HDL Ratio 2.88 Ratio; Globulin 1.7 g/dL (1.6-3.3); Glucose 99 mg/dL (70-110); LDL Cholesterol,Calculated 54.9 mg/dL (0.0-131.0); Non-African American GFR(CKD) 61.8 (60.0-200.0); Potassium 4.8 mmol/L (3.5-5.5); Sodium 142 mmol/L (135-145); Total Protein 5.7 g/dL (6.2-8.2)
== END | disposition home or self-care (01) ==
LOC: LABWHC1 09:05
PROVIDERS: ATTEND Family Medicine
DX: Z13.29 Encounter for screening for other suspected endocrine disorder (principal); J44.9 Chronic obstructive pulmonary disease, unspecified; I10 Essential (primary) hypertension; F43.21 Adjustment disorder with depressed mood; E78.2 Mixed hyperlipidemia
CPT/HCPCS: 36415; 80053; 80061; 84443; 85025

== ENCOUNTER → 2022-06-13 | Outpatient (CLI) | payer MEDICARE ==
--- NOTE | 2022-06-13 15:57 | US ---
EXAMINATION TYPE: US scrotum with doppler. DATE OF EXAM: 06/13/2022 COMPARISON: NONE CLINICAL HISTORY: 82-year-old male N43.3 HYDROCELE, UNSPECIFIED. Edema TECHNIQUE: Grayscale and color Doppler Duplex imaging performed of the scrotum. FINDINGS: EXAM MEASUREMENTS: TESTICLES: Right Testicle: 4.4 x 2.5 x 3.1 cm; incidental benign-appearing, inferior cyst measuring .6 x .5 x .6 cm. Left Testicle: 2.8 x 3.4 x 2.6 cm EPIDIDYMIS HEAD: Right Epididymis: Measuring up to 3.1 cm, replaced by a thinly septated cyst. Left Epididymis: 1.2 x 1.0 cm Doppler performed to assess for testicular vascularity; good bilateral color flow and waveforms are s een. There is no evidence of testicular torsion. Presence of hydroceles: Yes, largest on the right. Presence of varicoceles: no IMPRESSION: 1. No sonographic evidence for testicular torsion. 2. Large right-sided scrotal hydrocele. 3. The right epididymal head is replaced by a thinly septated cyst measuring 3.1 cm.
== END | disposition home or self-care (01) ==
LOC: RADUSWWP 14:13
PROVIDERS: ATTEND Urology
DX: N43.3 Hydrocele, unspecified (principal); N50.3 Cyst of epididymis
CPT/HCPCS: 76870; 93975

== ENCOUNTER → 2022-06-21 | Outpatient (CLI) | payer MEDICARE ==
--- NOTE | 2022-06-22 06:43 | MR ---
MRI CERVICAL SPINE: CLINICAL HISTORY: Neck pain that radiates down both arms. Cervical radiculopathy per order. TECHNIQUE: Multiplanar, multisequence imaging of the cervical spine is performed without IV contrast. COMPARISON: None. FINDINGS: Coronal images show levoconvex scoliosis centered at L4 level with reactive dextroconvex sc oliosis centered in the visualized upper thoracic spine. Sagittal images of the cervical spine show t he craniocervical junction to appear within normal limits. The cervical and upper thoracic spinal co rd shows focus of increased T2 signal at C3-C4 level sagittal images 9 and 10. There is grade 1 retro listhesis C3 on C4 and slight grade 1 anterolisthesis of C4 on C5. There is grade 1 retrolisthesis of C6 on C7. The vertebral body heights are normal. There is moderate to advanced disc space narrowin g at C3-C4 level. There is mild to moderate disc space narrowing at C6-C7 level with moderate anterio r spurring and subtle heterogeneous Modic type II endplate changes. Axial images at C2-C3 level appear within normal limits. Axial images at C3-C4 level show spondylolisthesis with uncovertebral facet degenerative changes caus ing moderate left and advanced right-sided neural foraminal narrowing. There is posterior disc protru lashell effacing anterior thecal sac up to ventral surface of spinal cord with subtle increased signal. Axial images at C4-C5 level shows spondylolisthesis with broad-based posterior disc protrusion and ri ght-sided uncovertebral facet degenerative changes. There is some effacement of the anterior thecal s ac and mild bilateral neural foraminal narrowing. Axial images at C5-C6 level shows lobulated broad-based posterior disc protrusion effacing anterior t hecal sac along with uncovertebral facet degenerative changes causing mild right and moderate left-si ded neural foraminal narrowing. Axial images at C6-C7 level showed broad based posterior disc protrusion effaces the anterior thecal sac and causing moderate to advanced left greater than right bilateral neural foraminal narrowing. Malave btle spondylolisthesis noted. Axial images at C7-T1 level showed tiny right paracentral disc protrusion mildly facing anterior thec al sac. Patent bilateral neural foramina. IMPRESSION: Scoliosis. There is multilevel spondylolisthesis and degenerative change in the cervical spine as detailed above. Most prominent spinal canal effacement and some cord effacement and change i s noted at C3-C4 level. Advise neurosurgical referral/evaluation.
== END | disposition home or self-care (01) ==
LOC: RADMRIMAIN 09:34
PROVIDERS: ATTEND Family Medicine
DX: M47.22 Other spondylosis with radiculopathy, cervical region (principal); M50.13 Cervical disc disorder with radiculopathy, cervicothoracic region; M41.82 Other forms of scoliosis, cervical region; M43.12 Spondylolisthesis, cervical region
CPT/HCPCS: 72141

== ENCOUNTER → 2022-09-13 | Outpatient (CLI) | payer MEDICARE ==
[2022-09-14 01:30] LABS: Albumin 3.8 g/dL (3.8-4.9); Albumin/Globulin Ratio 1.64 (1.60-3.17); Anion Gap 11.6 mmol/L (10.00-18.00); BUN/Creat Ratio 14.86 Ratio (12.00-20.00); Basophils # (A) 0.04 X 10*3/uL (0.00-0.10); Basophils % (A) 0.4 %; Blood Urea Nitrogen 15.9 mg/dL (9.0-27.0); Calcium 10.2 mg/dL (8.7-10.3); Carbon Dioxide 23.6 mmol/L (20.0-27.5); Eosinophils # (A) 0.14 X 10*3/uL (0.04-0.35); Eosinophils % (A) 1.4 %; Globulin 2.3 g/dL (1.6-3.3); HCT 42.1 % (39.6-50.0); HGB 13.4 g/dL (13.0-17.0); Immature Grans, Automated 1.3 %; Lymphocytes % (A) 21.8 %; MCH 28.1 pg (27.0-32.0); MCHC 31.8 g/dL (32.0-37.0); MCV 88.3 fL (80.0-97.0); Mean Platelet Volume 12.4 fL (9.5-12.2); Monocytes # (A) 0.97 X 10*3/uL (0.20-1.00); Monocytes % (A) 9.6 %; NRBC Per 100 WBC 0 /100 WBCS (0.0-0.0); Neutrophils # (A) 6.62 X 10*3/uL (1.80-7.70); Neutrophils % (A) 65.5 %; Non-African American GFR(CKD) 63.9 (60.0-200.0); Platelet Count 178 X 10*3/uL (140-440); Potassium 4.6 mmol/L (3.5-5.5); RBC 4.77 X 10*6/uL (4.40-5.60); RDW 13.3 % (11.5-14.5); Total Bilirubin 0.3 mg/dL (0.30-1.20); Total Protein 6.2 g/dL (6.2-8.2)
== END | disposition home or self-care (01) ==
LOC: LABWHC1 16:02
PROVIDERS: ATTEND Family Medicine
DX: J15.8 Pneumonia due to other specified bacteria (principal)
CPT/HCPCS: 36415; 80053; 85025

== ENCOUNTER 2022-09-29 07:15 | Day surgery (SDC) | payer MEDICARE ==
[2022-09-12 10:51] VITALS: BMI 30.4
[2022-09-29] MEDS ORDERED: LACTATED RINGERS 1,000 ML IV SCH (07:26)
[2022-09-29] MEDS ORDERED: LIDOCAINE 1% (10MG/ML) FOR IV START INTRADERMA PRN (07:26)
[2022-09-29 07:34] VITALS: TEMP 97
[2022-09-29] MEDS ORDERED: IOPAMIDOL M200 10 ML VIAL ONE (08:10)
[2022-09-29] MEDS ORDERED: methylPREDNISolone ACETATE 40 MG/ML 1 ML VIAL ONE (08:10)
[2022-09-29] MEDS ORDERED: MIDAZOLAM 2 MG/2 ML VIAL ONE (08:10)
--- NOTE | 2022-09-29 08:21 | P.PCN ---
Date of Procedure: 09/29/22 Procedure(s) Performed: PREOPERATIVE DIAGNOSIS: 1- Lumbar Degenerative Disc Diseases 2-Lumbar spondylosis with Facet arthropathy without myelopathy. POSTOPERATIVE DIAGNOSIS: 1-lumbar degenerative disc disease. 2-lumbar spondylosis with facet arthropathy without myelopathy. PROCEDURE 1. Lumbar epidural steroid injection under fluoroscopic guidance at the L5-S1 level. (Fluoroscopy imaging was available in radiology department) 2. Lumbar epidurogram. ANESTHESIA: moderate sedation with intravenous Versed 1 mg . Sedation start time : 812 Sedation end time : 817 EBL: Minimal PROCEDURE INDICATION: The patient with low back pain and radiculitis symptoms unresponsive to conservative treatment. Fluoroscopy was used to optimize visualization of the needle placement and to maximize safety. PROCEDURE DESCRIPTION / TECHNIQUE: The patient was seen and identified in the preoperative area. Risks, benefits, complications including but not limited to infections ,bleeding ,allergic reaction to the medications ,nerve damage and not complete pain releife , and alternatives were discussed with the patient. The patient agreed to proceed with the procedure and signed the consent. IV was started, and vital signs were stable. Patient was taken to the OR and time out was completed. The patient was placed in the prone position on procedure table and a pillow was placed under the abdomen to reduce lumbar lordosis. The lumbosacral area was prepped and draped in the usual sterile fashion.ere closely monitored during the procedure. Conscious sedation was used during the procedure to decrease patients anxiety. Vital signs was monitered during the entire procedure. Using anterior-posterior fluoroscopy, the L5-S1 interlaminar space was identified and the skin over this site was marked and then infiltrated with 1% lidocaine subcutaneously. Subsequently, a 20-gauge Tuohy epidural needle was inserted and advanced toward the epidural space using the ``Loss of resistance technique and guided by AP and lateral fluoroscopy. The correct needle position in the epidural space was verified with the injection of 2 mL of the water soluble contrast dye Isovue 200 contrast and observing an excellent epidurogram with the epidural spread of the dye, after negative aspiration for blood and CSF and in the absence of paresthesias. Again after negative aspiration, a 6 ml mixture containing 40 mg of Depo-medrol ( Preservetive Free ), and 2 ml of preservative free Normal Saline, and 2 ml of preservative free lidocaine 1% solution was injected and a washout of epidurogram was seen. Needle was withdrawn intact, skin was cleansed, and bandages were applied. COMPLICATIONS: None DISPOSITION / PLANS: The patient was placed in a supine position and transferred to the recovery area in a stable condition for observation. There was no evidence of lower extremity motor or sensory deficit after the procedure. Patient was discharged from the recovery room after meeting discharge criteria. Home discharge instructions were given to the patient by the staff. The patient was reexamined prior to discharge. The patient will schedule a follow up in the clinic in 2-4 weeks.
[2022-09-29] MEDS ORDERED: IV FLUID CONTINUATION 900 ML IV ONE (08:26)
[2022-09-29 08:28] VITALS: RESP 16
--- NOTE | 2022-09-29 08:36 | FL ---
Intraoperative/procedural fluoroscopic services were provided for lumbar epidural steroid injection. Total fluoroscopy time is 1 second with a total of 1 submitted image to PACS. Total DAP [id number]. Plea se see the operative note for further details.
[2022-09-29 08:41] VITALS: BP 119/68; PULSE 60
== END 2022-09-29 09:00 | disposition home or self-care (01) ==
LOC: ORPAIN 07:15
PROVIDERS: ATTEND Specialist
DX: M51.16 Intervertebral disc disorders with radiculopathy, lumbar region (principal); M47.26 Other spondylosis with radiculopathy, lumbar region
CPT/HCPCS: 62323; J2250; J1030; Q9966

== ENCOUNTER 2022-10-13 06:29 | Day surgery (SDC) | payer MEDICARE ==
[2022-09-16 12:28] VITALS: BMI 30.4
--- NOTE | 2022-10-12 22:10 | P.GSHP ---
History of Present Illness H&P Date: 10/12/22 Chief Complaint: Right scrotal discomfort The patient is an 82-year-old white male with a history of voiding symptoms, for which she is taking tamsulosin, finasteride, and manometric. He previously underwent a-year-old left in September 2021. He has a large right hydrocele and has become increasingly symptomatic. Ultrasound shows a large right hydrocele as well as a 3.1 cm right spermatocele. He now comes for a hydrocelectomy/spermatocelectomy. - Cardiovascular Cardiovascular: Reports high blood pressure Past Medical History Past Medical History: Coronary Artery Disease (CAD), COPD, GERD/Reflux, Hearing Disorder / Deafness, Hyperlipidemia, Hypertension, Musculoskeletal Disorder, Osteoarthritis (OA), Pneumonia, Prostate Disorder Additional Past Medical History / Comment(s): Wears Hearing aids, full dentures., DDD., Back pain, pain in legs, numbness/tingling in hands & feet., constipation., right hydrocele , states positive covid test with pneumonia (home test 09/05/22)-completing antibiotics-states he feels good now but has a cough still. History of Any Multi-Drug Resistant Organisms: None Reported Past Surgical History: Heart Catheterization With Stent Additional Past Surgical History / Comment(s): heart cath with stent 2009., Colonoscopy., pain clinic procedure., cysto with urolift (09/2021) Past Anesthesia/Blood Transfusion Reactions: No Reported Reaction Date of Last Stent Placement:: 2009 Past Psychological History: No Psychological Hx Reported Additional Psychological History / Comment(s): spouse last month (august 2022) Smoking Status: Former smoker Past Alcohol Use History: None Reported Additional Past Alcohol Use History / Comment(s): quit smokine age 24, smoked 5 years- cigar daily. Past Drug Use History: None Reported Additional Drug Use History / Comment(s): . - Past Family History Father Family Medical History: Cancer Mother Family Medical History: Cancer Daughter(s) Family Medical History: Deep Vein Thrombosis (DVT) Sister(s) Family Medical History: Cancer Additional Family Medical History / Comment(s): colon cancer Brother(s) Family Medical History: Cancer Medications and Allergies Home Medications Medication Instructions Recorded Confirmed Type Aspirin [Adult Low Dose Aspirin EC] 81 mg PO HS 03/09/18 10/12/22 History Tamsulosin [Flomax] 0.4 mg PO HS 03/09/18 10/12/22 History Omeprazole 20 mg PO QAM 12/02/19 10/12/22 History Pregabalin 100 mg PO HS 12/02/19 10/12/22 History atenoloL [Tenormin] 50 mg PO BID 12/02/19 10/12/22 History HYDROcodone/APAP 5-325MG [[place] 1 tab PO TID 09/29/21 10/12/22 History 5-325] Ascorbic Acid [Vitamin C] 1,000 mg PO QAM 09/12/22 10/12/22 History Cholecalciferol [Vitamin D3 (25 25 mcg PO QAM 09/12/22 10/12/22 History Mcg = 1000 Iu)] Cyanocobalamin (Vitamin B-12) 1,000 mcg PO QAM 09/12/22 10/12/22 History [Vitamin B-12] Ferrous Sulfate [Feosol] 325 mg PO QAM 09/12/22 10/12/22 History Fluticasone/Umeclidin/Vilanter 1 puff INHALATION TID PRN 09/12/22 10/12/22 History [Trelegy Ellipta 200-62.5-25] Magnesium 100 mg PO QAM 09/12/22 10/12/22 History Mirabegron [Myrbetriq] 25 mg PO HS 09/12/22 10/12/22 History [place]-3/Dha/Epa/Fish Oil [Fish Oil 1 each PO QAM 09/12/22 10/12/22 History 1,000 mg Softgel] Ubidecarenone [Co Q-10] 100 mg PO QAM 09/12/22 10/12/22 History Vitamin E (Dl,Tocopheryl Acet) 400 unit PO QAM 09/12/22 10/12/22 History [Vitamin E (400 Iu = 180 mg)] Losartan [Cozaar] 50 mg PO HS 09/16/22 10/12/22 History Albuterol Inhaler [Ventolin Hfa 90 mcg INHALATION Q4HR PRN 09/28/22 10/12/22 History Inhaler] Finasteride [Proscar] 5 mg PO HS 09/28/22 10/12/22 History Allergies Allergy/AdvReac Type Severity Reaction Status Date / Time No Known Allergies Allergy Verified 10/12/22 08:17 Surgical - Exam - General well developed, well nourished, no distress - Respiratory normal respiratory effort - Abdomen Abdomen: soft, non tender, no guarding, no rigid, no rebound Hernia: inguinal - Genitourinary Normal phallus, normal urethral meatus. A large right hydrocele is present. The left testicle is normal. Assessment and Plan (1) Hydrocele Status: Acute Code(s): N43.3 - HYDROCELE, UNSPECIFIED SNOMED Code(s): 69650114 (2) Spermatocele Status: Acute Code(s): N43.40 - SPERMATOCELE OF EPIDIDYMIS, UNSPECIFIED SNOMED Code(s): 71384076 Plan: Right hydrocelectomy with spermatocelectomy. The procedure has been reviewed in detail with the patient. He is aware of potential risks, which include anesthesia, bleeding, infection, testicular injury, and recurrent hydrocele.
[~2022-10-13 06:29] MED LIST changes: -DEXAMETHASONE SOD PHOSPHATE 4 MG/ML 1 ML VIAL IV ONE; -HYDROmorphone 0.5 MG/0.5 ML SYRINGE IVP PRN; +fentaNYL (PF) 50 MCG/ML 2 ML AMP IV PRN
[2022-10-13] MEDS ORDERED: LIDOCAINE 2% INJ 20 MG/ML (2 ML VIAL) ONE (07:24)
[2022-10-13] MEDS ORDERED: PHENYLEPHRINE-0.9% NACL SYG 1,000 MCG/10 ML SYRINGE ONE (07:24)
[2022-10-13] MEDS ORDERED: fentaNYL (PF) 50 MCG/ML 2 ML AMP ONE (07:24)
[2022-10-13] MEDS ORDERED: PROPOFOL 10 MG/ML 20 ML VIAL IV ONE (07:24)
[2022-10-13] MEDS ORDERED: BUPIVACAINE (PF) 0.5% 30 ML VIAL SQ ONE ×2 (07:57)
[2022-10-13] MEDS ORDERED: LACTATED RINGERS 1,000 ML IV ONE (09:01)
[2022-10-13 09:20] VITALS: TEMP 97.9
[2022-10-13 10:17] VITALS: RESP 20
--- NOTE | 2022-10-13 10:47 | P.OP ---
Date of Procedure: 10/13/22 Preoperative Diagnosis: Right hydrocele, right spermatocele Postoperative Diagnosis: Same Procedure(s) Performed: Right hydrocele repair, right spermatocelectomy with partial epididymectomy. Anesthesia: DREWA Surgeon: Elias Alva Estimated Blood Loss (ml): 10 IV fluids (ml): 900 Pathology: other (Right spermatocele and right epididymis) Condition: stable Disposition: PACU Indications for Procedure: The patient is an 82-year-old white male with a history of voiding symptoms, for which she is taking tamsulosin, finasteride, and manometric. He previously underwent a-year-old left in September 2021. He has a large right hydrocele and has become increasingly symptomatic. Ultrasound shows a large right hydrocele as well as a 3.1 cm right spermatocele. He now comes for a hydrocelectomy/spermatocelectomy. Operative Findings: Small right hydrocele. Very large, multiloculated right spermatocele. Morphologically normal testicle. Description of Procedure: The patient was taken to the operating room and placed in the supine position. The external genitalia was prepped and draped sterilely. The scalpel was used to make a right anterior scrotal incision along Ginette's lines. The Bovie e lectrocautery was used to incise the underlying dartos fascia, down to the hydrocele sac. The hydrocele was opened, and a small amount of fluid was drained. The incision and the hydrocele sac was then extended, allowing the testicle to be delivered through the wound. The testicle appeared morphologically normal. However, an extremely large, multiloculated right spermatocele was identified. This was dissected circumferentially using a combination of sharp and blunt dissection. This was excised along with a portion of the right epididymis. Blood supply to the testicle was preserved. The wound was meticulously examined, and any areas of bleeding were controlled with electrocautery. Excellent hemostasis was attained. The spermatic cord was infiltrated with 0.5% bupivacaine. The testicle was returned to the hemiscrotum. The dartos fascia was closed using 3-0 Vicryl suture in a running fashion. The skin was closed using 3-0 chromic suture in a running fashion. Dermabond was applied over the incision. Surgical fluffs were placed over the incision, followed by scrotal support. All sponge and needle counts were correct. The patient tolerated the procedure well was taken to the recovery room in stable condition.
[2022-10-13 10:55] VITALS: BP 145/86; PULSE 59
== END 2022-10-13 11:34 | disposition home or self-care (01) ==
LOC: OR 06:29
PROVIDERS: ATTEND Urology
DX: N43.3 Hydrocele, unspecified (principal); N43.41 Spermatocele of epididymis, single; I25.10 Atherosclerotic heart disease of native coronary artery without angina pectoris; J44.9 Chronic obstructive pulmonary disease, unspecified; K21.9 Gastro-esophageal reflux disease without esophagitis; I10 Essential (primary) hypertension; E78.5 Hyperlipidemia, unspecified; M19.90 Unspecified osteoarthritis, unspecified site; Z86.16 Personal history of COVID-19; Z87.891 Personal history of nicotine dependence; Z80.0 Family history of malignant neoplasm of digestive organs; Z79.82 Long term (current) use of aspirin; Z79.899 Other long term (current) drug therapy; Z79.51 Long term (current) use of inhaled steroids
CPT/HCPCS: 88304; 88305

== ENCOUNTER 2023-02-05 19:16 | Emergency (ER) | payer MEDICARE ==
[2023-02-05 19:25] VITALS: BP 148/73; PULSE 77; RESP 18; TEMP 98.7
[2023-02-05] MEDS ORDERED: HYDROcodone/APAP 5-325MG 1 EACH TAB PO STA (20:04)
--- NOTE | 2023-02-05 20:30 | XR ---
EXAMINATION TYPE: XR ribs RT w pa chest xray DATE OF EXAM: 02/05/2023 8:11 PM INDICATION: Patient age:Male; 82 years old; Reason for study: fall injury; [facility]. COMPARISON: 06/13/2019 TECHNIQUE: Frontal and oblique views of the right ribs with frontal chest radiograph. FINDINGS: The ribs have a normal appearance. No evidence of fracture. Overall, the lungs are clear. The cardiac silhouette is normal in size. The remaining osseous structures are intact. Multilevel d isc degeneration changes of the spine. IMPRESSION: Nondisplaced rib fracture visualized.
--- NOTE | 2023-02-05 20:49 | ED ---
Fall HPI - General Chief Complaint: Fall Stated Complaint: fell- ribs hurt Time Seen by Provider: 02/05/23 19:29 Source: patient Mode of arrival: ambulatory - History of Present Illness Initial Comments: This patient is an 82-year-old man states that he had fallen while at [employer]. The patient states that he does have frequent falls as his walking is not good. He indicates that he struck his head and also the right side of his chest. The patient is concerned because when he takes a deep breath he does have some chest wall pain. Related to the fall there was no loss of consciousness. He is not having neurologic symptoms. No neck pain. The patient denies other injuries. MD Complaint: fall -: hour(s) Fall From: standing When Fall Occurred: 4-6 hours [employer]M BU[employer] Fall Witnessed: yes, by bystander Place Fall Occurred: other Loss of Consciousness: none Prolonged Down Time?: no Symptoms Prior to Fall: none Location: head, chest Severity: moderate Quality: sharp Context: tripped/slipped Associated Symptoms: denies - Related Data Home Medications Medication Instructions Recorded Confirmed Aspirin [Adult Low Dose Aspirin EC] 81 mg PO HS 03/09/18 10/13/22 Tamsulosin [Flomax] 0.4 mg PO HS 03/09/18 10/13/22 Omeprazole 20 mg PO QAM 12/02/19 10/13/22 Pregabalin 100 mg PO HS 12/02/19 10/13/22 atenoloL [Tenormin] 50 mg PO BID 12/02/19 10/13/22 HYDROcodone/APAP 5-325MG [[place] 1 tab PO TID 09/29/21 10/13/22 5-325] Ascorbic Acid [Vitamin C] 1,000 mg PO QAM 09/12/22 10/13/22 Cholecalciferol [Vitamin D3 (25 25 mcg PO QAM 09/12/22 10/13/22 Mcg = 1000 Iu)] Cyanocobalamin (Vitamin B-12) 1,000 mcg PO QAM 09/12/22 10/13/22 [Vitamin B-12] Ferrous Sulfate [Feosol] 325 mg PO QAM 09/12/22 10/13/22 Fluticasone/Umeclidin/Vilanter 1 puff INHALATION TID PRN 09/12/22 10/13/22 [Trelegy Ellipta 200-62.5-25] Magnesium 100 mg PO QAM 09/12/22 10/13/22 Mirabegron [Myrbetriq] 25 mg PO HS 09/12/22 10/13/22 [place]-3/Dha/Epa/Fish Oil [Fish Oil 1 each PO QAM 09/12/22 10/13/22 1,000 mg Softgel] Ubidecarenone [Co Q-10] 100 mg PO QAM 09/12/22 10/13/22 Vitamin E (Dl,Tocopheryl Acet) 400 unit PO QAM 09/12/22 10/13/22 [Vitamin E (400 Iu = 180 mg)] Losartan [Cozaar] 50 mg PO HS 09/16/22 10/13/22 Albuterol Inhaler [Ventolin Hfa 90 mcg INHALATION Q4HR PRN 09/28/22 10/13/22 Inhaler] Finasteride [Proscar] 5 mg PO HS 09/28/22 10/13/22 Previous Rx's Medication Instructions Recorded Ketorolac [Toradol] 10 mg PO Q6HR PRN #10 tab 10/13/22 HYDROcodone/APAP 5-325MG [[place] 1 tab PO Q4HR PRN 3 Days #18 tab 02/05/23 5-325] Allergies Allergy/AdvReac Type Severity Reaction Status Date / Time tramadol Allergy Rash/Hives Verified 02/05/23 19:25 Review of Systems ROS Statement: Those systems with pertinent positive or pertinent negative responses have been documented in the HPI. ROS Other: All systems not noted in ROS Statement are negative. Constitutional: Denies: fever, chills, weakness Eyes: Denies: vision change ENT: Denies: hearing loss Respiratory: Reports: as per HPI. Denies: cough, dyspnea, hemoptysis Cardiovascular: Reports: as per HPI, chest pain. Denies: edema, syncope Gastrointestinal: Denies: abdominal pain, nausea, vomiting, diarrhea Genitourinary: Denies: dysuria, hematuria Musculoskeletal: Denies: back pain Skin: Denies: rash Neurological: Reports: headache. Denies: weakness, numbness Past Medical History Past Medical History: Coronary Artery Disease (CAD), COPD, GERD/Reflux, Hearing Disorder / Deafness, Hyperlipidemia, Hypertension, Musculoskeletal Disorder, Osteoarthritis (OA), Prostate Disorder, Sleep Apnea/CPAP/BIPAP Additional Past Medical History / Comment(s): Wears Hearing aids, full dentures. Back pain, pain in legs, NT in feet. C/O bloating, constipation, N/V, loss of appetite. Poss sleep apnea. History of Any Multi-Drug Resistant Organisms: None Reported Past Surgical History: Heart Catheterization With Stent Additional Past Surgical History / Comment(s): Colonoscopy. 01/04/21 cortisone injection lt knee. PAIN CLINIC PROCEDURE Past Anesthesia/Blood Transfusion Reactions: No Reported Reaction Date of Last Stent Placement:: 2009 Past Psychological History: No Psychological Hx Reported Smoking Status: Former smoker Past Alcohol Use History: None Reported Past Drug Use History: None Reported - Past Family History Father Family Medical History: Cancer Mother Family Medical History: Cancer Daughter(s) Family Medical History: Deep Vein Thrombosis (DVT) Sister(s) Family Medical History: Cancer Additional Family Medical History / Comment(s): colon cancer Brother(s) Family Medical History: Cancer General Exam Limitations: no limitations General appearance: alert, in no apparent distress Head exam: Present: atraumatic, normocephalic Eye exam: Present: normal appearance. Absent: scleral icterus, conjunctival injection Neck exam: Present: normal inspection, full ROM. Absent: tenderness Respiratory exam: Present: normal lung sounds bilaterally, chest wall tenderness. Absent: respiratory distress, wheezes, rales, rhonchi, stridor, accessory muscle use Cardiovascular Exam: Present: regular rate, normal rhythm, normal heart sounds. Absent: systolic murmur, diastolic murmur, rubs, gallop GI/Abdominal exam: Present: soft. Absent: distended, tenderness, guarding, rebound, rigid, mass Extremities exam: Present: normal inspection, normal capillary refill. Absent: pedal edema, calf tenderness Back exam: Present: normal inspection. Absent: vertebral tenderness Neurological exam: Present: alert, oriented X3, CN II-XII intact. Absent: motor sensory deficit Skin exam: Present: warm, dry, intact, normal color. Absent: rash Course Vital Signs 02/05/23 19:23 Temperature 98.7 F Pulse Rate 77 Respiratory 18 Rate Blood Pressure 148/73 O2 Sat by Pulse 96 Oximetry Medical Decision Making - Medical Decision Making The patient had chest x-ray and right rib x-rays. I interpreted this as showing possible nondisplaced fracture Was pt. sent in by a medical professional or institution (, [facility], [facility], urgent care, hospital, or [place] health care facility...) When possible be specific @ -[No] Did you speak to anyone other than the patient for history (EMS, parent, family, police, friend...)? What history was obtained from this source @ -[No] Did you review nursing and triage notes (agree or disagree)? Why? @ -[I reviewed and agree with nursing and triage notes] Were old charts reviewed (outside hosp., previous admission, EMS record, old EKG, old radiological studies, urgent care reports/EKG's, [place] health care facility records)? Report findings @ -[No old charts were reviewed] Differential Diagnosis (chest pain, altered mental status, abdominal pain women, abdominal pain men, vaginal bleeding, weakness, fever, dyspnea, syncope, headache, dizziness, GI bleed, back pain, seizure, CVA, palpatations, mental health, musculoskeletal)? @ -[Differential Musculoskeletal Muscular strain, contusion, ligament sprain, fracture, arthritis, septic arthritis, bursitis, cellulitis, muscle spasm, nerve compression, DVT, arterial occlusion, herpes zoster, electrolyte abnormality, tumor.... This is not meant to be in all inclusive list EKG interpreted by me (3pts min.). @ -[ X-rays interpreted by me (1pt min.). @ -[Interpreted the as above CT interpreted by me (1pt min.). @ -[None done] U/S interpreted by me (1pt. min.). @ -[None done] What testing was considered but not performed or refused? (CT, X-rays, U/S, labs)? Why? @ -[None] What meds were considered but not given or refused? Why? @ -[None] Did you discuss the management of the patient with other professionals (professionals i.e. , [facility], [facility], lab, RT, psych nurse, social services director, fire technician, teacher, inspectors and regulatory officers, caseworker)? Give summary @ -[No] Was smoking cessation discussed for >3mins.? @ -[No] Was critical care preformed (if so, how long)? @ -[No] Were there social determinants of health that impacted care today? How? (Homelessness, low income, unemployed, alcoholism, drug addiction, transportation, low edu. Level, literacy, decrease access to med. care, custodial, rehab)? @ -[No] Was there de-escalation of care discussed even if they declined (Discuss DNR or withdrawal of care, Hospice)? DNR status @ -[No] What co-morbidities impacted this encounter? (DM, HTN, Smoking, COPD, CAD, Ca ncer, CVA, ARF, Chemo, Hep., AIDS, mental health diagnosis, sleep apnea, morbid obesity)? @ -[None] Was patient admitted / discharged? Hospital course, mention meds given and route, prescriptions, significant lab abnormalities, going to OR and other pertinent info. @ -[Patient is a 82-year-old man with ground-level fall. Given the degree of tenderness suspect that there is nondisplaced rib fracture. Discussed appropriate further care and follow-up as well as return parameters. Undiagnosed new problem with uncertain prognosis? @ -[No] Drug Therapy requiring intensive monitoring for toxicity (Heparin, Nitro, Insulin, Cardizem)? @ -[No] Were any procedures done? @ -[No] Diagnosis/symptom? @ -[Acute chest wall injury, possible rib fracture Minor head trauma Acute, or Chronic, or Acute on Chronic? @ -[Acute Uncomplicated (without systemic symptoms) or Complicated (systemic symptoms)? @ -[Uncomplicated Side effects of treatment? @ -[No] Exacerbation, Progression, or Severe Exacerbation? @ -[No] Poses a threat to life or bodily function? How? (Chest pain, [place], [place], pneumonia, PE, COPD, DKA, ARF, appy, cholecystitis, CVA, Diverticulitis, Homicidal, Suicidal, threat to staff... and all critical care pts) @ -[No] Disposition Clinical Impression: Fall, Chest wall injury Disposition: HOME SELF-CARE Condition: Good Instructions (If sedation given, give patient instructions): Fall Prevention for Older Adults (ED), Chest Wall Pain (ED) Prescriptions: HYDROcodone/APAP 5-325MG [[place] 5-325] 1 tab PO Q4HR PRN 3 Days #18 tab PRN Reason: Pain Is patient prescribed a controlled substance at d/c from ED?: No Referrals: Ryan Pizano DO [Primary Care Provider] - 1-2 days
== END 2023-02-05 21:14 | disposition home or self-care (01) ==
LOC: EC 19:16
DX: S22.31XA Fracture of one rib, right side, initial encounter for closed fracture (principal); J44.9 Chronic obstructive pulmonary disease, unspecified; I10 Essential (primary) hypertension; I25.10 Atherosclerotic heart disease of native coronary artery without angina pectoris; E78.5 Hyperlipidemia, unspecified; K21.9 Gastro-esophageal reflux disease without esophagitis; G47.30 Sleep apnea, unspecified; M19.90 Unspecified osteoarthritis, unspecified site; Z87.891 Personal history of nicotine dependence; Z79.82 Long term (current) use of aspirin; Z88.5 Allergy status to narcotic agent; Z79.899 Other long term (current) drug therapy; Z79.51 Long term (current) use of inhaled steroids; W18.30XA Fall on same level, unspecified, initial encounter
CPT/HCPCS: 99284

== ENCOUNTER → 2023-04-04 | Outpatient (CLI) | payer MEDICARE | END | disposition home or self-care (01) | LOC: LABPAT 04-03 14:28 | PROVIDERS: ATTEND Orthopaedic Surgery | DX: Z01.812 Encounter for preprocedural laboratory examination (principal); M17.12 Unilateral primary osteoarthritis, left knee; Z22.322 Carrier or suspected carrier of Methicillin resistant Staphylococcus aureus | CPT/HCPCS: 87070 ==

== ENCOUNTER 2023-04-25 07:00 | Observation (INO) | payer MEDICARE ==
[2023-04-20 14:02] VITALS: BMI 31.6
--- NOTE | 2023-04-24 09:00 | P.HPOR ---
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 He notes he had a recent injury and his symptoms have worsened. He notes buckling and locking. He notes stiffness and swelling. He has pain with weightbearing activities. He's tried bracing along with previous injections and medications. He does use a cane. He notes daily pain that limits his normal function and activities. Review of Systems negative except as in HPI Past Medical History Past Medical History: Coronary Artery Disease (CAD), COPD, GERD/Reflux, Hearing Disorder / Deafness, Hyperlipidemia, Hypertension, Osteoarthritis (OA), Prostate Disorder, Sleep Apnea/CPAP/BIPAP Additional Past Medical History / Comment(s): Back pain, pain in legs, NT in feet. History of Any Multi-Drug Resistant Organisms: None Reported Past Surgical History: Heart Catheterization With Stent Additional Past Surgical History / Comment(s): PAIN CLINIC PROCEDURE. CYSTOSCOPY WITH UROLIFT. RIGHT HYDROCELE REPAIR, SPERMATOCELECTOMY W/ PARTIAL EPIDIDYMECTOMY Past Anesthesia/Blood Transfusion Reactions: No Reported Reaction Date of Last Stent Placement:: 2009 Past Psychological History: No Psychological Hx Reported Smoking Status: Former smoker Past Alcohol Use History: None Reported Additional Past Alcohol Use History / Comment(s): SMOKING AT AGE 19, QUIT AT AGE 24, SMOKED A CIGAR A DAY Past Drug Use History: None Reported Additional Drug Use History / Comment(s): . - Past Family History Father Family Medical History: Cancer Mother Family Medical History: Cancer Daughter(s) Family Medical History: Deep Vein Thrombosis (DVT) Sister(s) Family Medical History: Cancer Additional Family Medical History / Comment(s): colon cancer Brother(s) Family Medical History: Cancer Medications and Allergies Home Medications Medication Instructions Recorded Confirmed Type Aspirin [Adult Low Dose Aspirin EC] 81 mg PO HS 03/09/18 04/20/23 History Tamsulosin [Flomax] 0.4 mg PO HS 03/09/18 04/20/23 History Omeprazole 20 mg PO QAM 12/02/19 04/20/23 History Pregabalin 100 mg PO HS 12/02/19 04/20/23 History atenoloL [Tenormin] 50 mg PO BID 12/02/19 04/20/23 History HYDROcodone/APAP 5-325MG [[place] 1 tab PO TID PRN 09/29/21 04/20/23 History 5-325] Ascorbic Acid [Vitamin C] 1,000 mg PO QAM 09/12/22 04/20/23 History Cholecalciferol [Vitamin D3 (25 25 mcg PO QAM 09/12/22 04/20/23 History Mcg = 1000 Iu)] Cyanocobalamin (Vitamin B-12) 1,000 mcg PO QAM 09/12/22 04/20/23 History [Vitamin B-12] Ferrous Sulfate [Feosol] 325 mg PO QAM 09/12/22 04/20/23 History Fluticasone/Umeclidin/Vilanter 1 puff INHALATION DAILY 09/12/22 04/20/23 History [Trelegy Ellipta 200-62.5-25] Magnesium 250 mg PO QAM 09/12/22 04/20/23 History Mirabegron [Myrbetriq] 25 mg PO HS 09/12/22 04/20/23 History [place]-3/Dha/Epa/Fish Oil [Fish Oil 1 each PO QAM 09/12/22 04/20/23 History 1,000 mg Softgel] Ubidecarenone [Co Q-10] 100 mg PO QAM 09/12/22 04/20/23 History Vitamin E (Dl,Tocopheryl Acet) 400 unit PO QAM 09/12/22 04/20/23 History [Vitamin E (400 Iu = 180 mg)] Losartan [Cozaar] 50 mg PO HS 09/16/22 04/20/23 History Albuterol Inhaler [Ventolin Hfa 90 mcg INHALATION Q4HR PRN 09/28/22 04/20/23 History Inhaler] Finasteride [Proscar] 5 mg PO HS 09/28/22 04/20/23 History Vitamin K2 100 mcg PO DAILY 04/20/23 04/20/23 History Zinc Gluconate [Zinc] 50 mg PO DAILY 04/20/23 04/20/23 History Allergies Allergy/AdvReac Type Severity Reaction Status Date / Time tramadol Allergy Rash/Hives Verified 04/20/23 13:31 Physical Examination - Knee left Appearance: effusion Effusion grade: grade 3 Tenderness with palpation: anterior, medial, lateral Pain: throughout ROM Gait: limping ROM: extension: -20 degrees ROM: flexion: 100 degrees Crepitus with motion: Yes Strength: extension: 5/5 Strength: flexion: 5/5 Meniscal tests: medial meniscal tests: positive, lateral meniscal tests: positive, medial joint line pain: positive, lateral joint line pain: positive Results The patient is a well-developed well-nourished male, approximately 5 foot 8, 212 pounds of an endomorphic habitus. HEENT exam is nonfocal, neck supple. He has painless passive motion of the left hip. Straight leg raise is negative. He is tender about the medial and lateral joint line of the left knee. Collaterals are stable, [place] is negative, Ashley's is equivocal. His distal neurovascular appears intact in the left lower extremity. - Diagnostic results Knee x-ray: image reviewed ( 3 views of the left knee obtain the office shows severe tricompartmental osteoporosis with subchondral sclerosis and [id number] changes.) Assessment and Plan Assessment: Left knee severe tricompartmental osteoarthrosis history of COPD history of coronary artery disease Plan: I talked to the patient and his regarding his condition along with treatment options. At this point is quite symptomatically limited because of pain related to his left knee osteoarthrosis despite previous conservative measures. After thorough discussion he opted to proceed with surgery. We'll plan to proceed with left total knee arthroplasty. We will institute DVT prophylaxis postoperatively.
[~2023-04-25 07:00] MED LIST changes: +ACETAMINOPHEN TAB 500 MG TAB PO PRN; +DEXAMETHASONE SOD PHOSPHATE 4 MG/ML 1 ML VIAL IV ONE; +HYDROmorphone 0.5 MG/0.5 ML SYRINGE IVP PRN; -LACTATED RINGERS 1,000 ML IV SCH; +LIDOCAINE 1% (10MG/ML) FOR IV START INTRADERMA PRN; +MELOXICAM 7.5 MG TAB PO PRN; +MIDAZOLAM 2 MG/2 ML VIAL IV PRN; +TRANEXAMIC 1,000 MG/100ML-NACL 1,000 MG in SALINE 1 100ML.BAG IVPB PRN; -fentaNYL (PF) 50 MCG/ML 2 ML AMP IV PRN
[2023-04-25] MEDS: LACTATED RINGERS 1,000 ML IV SCH (07:40)
[2023-04-25] MEDS ORDERED: fentaNYL (PF) 50 MCG/ML 2 ML AMP IVP ONE (07:45)
[2023-04-25] MEDS ORDERED: MIDAZOLAM 2 MG/2 ML VIAL IVP ONE (07:45)
[2023-04-25] MEDS ORDERED: diphenhydrAMINE 50 MG/ML 1 ML VIAL ONE (08:05)
[2023-04-25] MEDS ORDERED: SODIUM CHLORIDE 0.9% (PF) 10 ML VIAL ONE (08:05)
[2023-04-25] MEDS ORDERED: DEXAMETHASONE SOD PHOSPHATE 4 MG/ML 1 ML VIAL ONE (08:05)
[2023-04-25] MEDS ORDERED: TRANEXAMIC 1,000 MG/100ML-NACL PREMIX BAG ONE (08:05)
[2023-04-25] MEDS ORDERED: MIDAZOLAM 2 MG/2 ML VIAL ONE (08:05)
[2023-04-25] MEDS ORDERED: ROPIVACAINE 5 MG/ML 30 ML VIAL ONE (08:05)
[2023-04-25] MEDS ORDERED: ROPIVACAINE 1,100 MG, SODIUM CHLORIDE 0.9% 500 ML 330 ML, EMPTY PAIN BALL 1 EACH MISCELLANE PRN ×2 (08:35)
--- NOTE | 2023-04-25 08:37 | P.ANPRN ---
Procedure Note - Anesthesia - Nerve Block Performed Left Adductor Canal Infusion Time Out Performed: Yes Date of Procedure: 04/25/23 Procedure Start Time: 07:44 Procedure Stop Time: 07:54 Location of Patient: PreOp Indication: Acute Post-Operative Pain, Requested by Surgeon Sedation Type: Sedate with meaningful contact maintained Preparation: Sterile Prep, Sterile Dressing Position: Supine Catheter: Indwelling Needle Types: [place] Needle Gauge: 18 Ultrasound used to visualize needle placement: Yes Ultrasound used to observe medication spread: Yes Injectate: 0.5% Ropivacaine (see comment for volume) (15 ml + 10 ml NS) Blood Aspirated: No Pain Paresthesia on Injection Noted: No Resistance on Injection: Normal Image Stored and Saved: Yes Events: Uneventful and Well Tolerated
--- NOTE | 2023-04-25 08:39 | P.ANPRN ---
Procedure Note - Anesthesia - Nerve Block Performed Left iPack Single Time Out Performed: Yes Date of Procedure: 04/25/23 Procedure Start Time: 07:55 Procedure Stop Time: 08:00 Location of Patient: PreOp Indication: Acute Post-Operative Pain, Requested by Surgeon Sedation Type: Sedate with meaningful contact maintained Preparation: Sterile Prep Position: Right Lateral Needle Types: Pajunk Needle Gauge: 21 Ultrasound used to visualize needle placement: Yes Ultrasound used to observe medication spread: Yes Injectate: 0.5% Ropivacaine (see comment for volume) (15 ml + 10 ml NS +4 mg Dexamethasone) Blood Aspirated: No Pain Paresthesia on Injection Noted: No Resistance on Injection: Normal Image Stored and Saved: Yes Events: Uneventful and Well Tolerated
[2023-04-25] MEDS ORDERED: ceFAZolin 1,000 MG in SODIUM CHLORIDE 0.9% 1,000 ML IRRIGATION ONE (08:46)
[2023-04-25] MEDS ORDERED: NALOXONE 0.4 MG/ML 1 ML VIAL IV PRN (10:08)
[2023-04-25] MEDS ORDERED: hydrOXYzine pamoate 25 MG CAP PO PRN (10:08)
[2023-04-25] MEDS ORDERED: HYDROmorphone 0.5 MG/0.5 ML SYRINGE IVP PRN (10:08)
[2023-04-25] MEDS ORDERED: HYDROcodone/APAP 5-325MG 1 EACH TAB PO PRN (10:08)
[2023-04-25] MEDS ORDERED: MAGNESIUM HYDROXIDE 2,400 MG/30 ML CUP PO PRN (10:08)
[2023-04-25] MEDS ORDERED: LACTATED RINGERS 1,000 ML IV ONE (10:25)
--- NOTE | 2023-04-25 10:30 | P.OP ---
Date of Procedure: 04/25/23 Preoperative Diagnosis: Left knee severe tricompartmental osteoarthrosis Postoperative Diagnosis: Same Procedure(s) Performed: Left total knee arthroplastycementedposterior stabilized Implants: Depuy Attune size 6 cemented femoral component, size 6 cemented tibial component, 11 mm articular surface, 41 mm cemented patellar component. This is a posterior stabilized implant. Anesthesia: regional, spinal Surgeon: Santino Samuel Sessions Clerk #1: Qasim Freire Estimated Blood Loss (ml): 50 Pathology: none sent Condition: stable Disposition: PACU Indications for Procedure: The patient is an 83-year-old male who presents with progressive left knee pain secondary to osteoarthrosis despite conservative measures. A discussion of the risks and benefits of operative intervention versus continued conservative measures was made with the patient. He opted to proceed with surgery. Operative risks to include infection, neurovascular injury, development of blood clots, fracture, possible component loosening/failure and need for subsequent procedures was discussed. Informed consent was obtained. Operative Findings: As below Description of Procedure: The patient was brought to the operating room, and after induction of spinal anesthesia the left lower extremity was prepped and draped in a normal fashion. The tourniquet was inflated to 270 mm marker. A longitudinal incision extending 3 finger breaths above the superior pole of patella extending to the medial aspect the tibial tubercle was then made. The skin and subcutaneous tissues were divided sharply. Electrocautery was used for hemostasis. A medial parapatellar arthrotomy was performed. The medial soft tissues to include the superficial and deep portions of the medial collateral ligament were elevated subperiosteally. The patella was everted. A portion of the retropatellar fat pad was excised sharply. The anterior cruciate ligament was sacrificed. Blunt retractors were placed. A starting hole was made in the distal femur 1 cm anterior to the posterior cruciate ligament origin. An intramedullary femoral guide was then inserted planning on 5 valgus distal cut with 9 mm distal resection. The cutting block was pinned in place. The distal cut was then made. The posterior referencing sizing guide was utilized. I felt size 6 was most appropriate. 3 of external rotation was built into the system and verified off the trans-epicondylar axis and the posterior condyles. The cutting block was pinned in place. The anterior, posterior, and chamfer cuts then made. Bone fragments were removed. The intercondylar guide was placed and the notch cut was made with a sagittal saw. The bone block was removed in one fragment. The trial component was then placed. There is good anterior to posterior and medial to lateral fit. The distal peg holes were drilled. The trial component was removed. Attention was then paid towards preparing the proximal tibia. An extra medullary guide was utilized in line with the tibial shaft and second metatarsal distally. I planned on 2 mm resection from the medial compartment. The cutting block was pinned in place. The proximal tibial cut was then made. The bone was removed in one fragment. The remnants of the medial and lateral menisci were excised at the capsular junction with electrocautery. The tibia sized most appropriately at size 6. The trial femoral and tibial components were placed along with a 11 mm articular surface. I was able to obtain full flexion and extension with internal and external rotation. After several fle xion and extension cycles, the tibial rotation was marked with electrocautery line with the medial one third of the tibial tubercle. Attention was then paid towards preparing the patella. A patella reamer was utilized taking stem to 14 mm of bone stock. A good flush cut was made. The patella sized most appropriately 41 mm. The peg holes were drilled. The trial components placed. I had good patellofemoral tracking with no hands technique. The trial components were then removed. The tibia was prepared in the appropriate rotation with appropriate drill and keel punch. The posterior osteophytes were removed with a curved osteotome. The flexion and extension gaps were checked and felt to be symmetric at 11 mm. A trial components were then removed. The bony surfaces were prepared with pulsatile lavage and dried. The tibial component was then cemented place was fully seated. Excess cement was removed. The femoral component cemented place and was fully seated. Excess cement was removed. The trial 11 mm articular surface was placed and the knee was put in full extension. The patella component was cemented place. After the cement had sufficiently hardened, the knee was again taken through a range of motion. Again I was able to obtain full flexion and extension with varus and valgus stress. The trial 11 mm articular surface was removed and the final one inserted. This was fully seated. Care was taken to avoid any soft tissue interposition. Pulsatile lavage was again utilized. The medial parapatellar arthrotomy was closed with #2 Ethibond suture. The tourniquet was deflated with approximately 60 minutes total tourniquet time. Final hemostasis was obtained with the cautery. There was minimal bleeding therefore a deep drain was not placed. The subcutaneous tissues were reapproximated with interrupted 2-0 Vicryl sutures. The skin was reapproximated with 3-0 subcuticular strata fix suture. Skin tape and adhesive was applied. A sterile dressing was applied. The patient was awoken from sedation and transferred to recovery room in good condition. Blood loss was estimated at 50 mL. No complications were incurred. Sponge and needle counts were correct at the end of the case. Qasim NELSON assisted during the major components of this case to include exposure, bone resection, implantation, and closure.
--- NOTE | 2023-04-25 11:01 | XR ---
EXAMINATION TYPE: XR knee limited LT DATE OF EXAM: 04/25/2023 CLINICAL HISTORY: Postoperative evaluation Two views of the left knee are submitted. Identified are changes of total knee arthroplasty with fem oral and tibial components appearing well seated. Postsurgical soft tissue changes are noted. Align ment is anatomic.
[2023-04-25] MEDS: HYDROcodone/APAP 7.5-325MG 1 EACH TAB PO PRN (17:00)
[2023-04-25] MEDS: SENNOSIDES-DOCUSATE SODIUM 1 EACH TAB PO SCH (19:59)
[2023-04-25] MEDS: HYDROmorphone 0.5 MG/0.5 ML SYRINGE IVP PRN (19:59)
[2023-04-25] MEDS: TAMSULOSIN 0.4 MG CAP.ER.24H PO SCH (19:59)
[2023-04-25] MEDS: atenoloL 50 MG TAB PO SCH (19:59)
[2023-04-25] MEDS: PREGABALIN 100 MG CAP PO SCH (19:59)
[2023-04-25] MEDS: LOSARTAN 50 MG TAB PO SCH (19:59)
[2023-04-25] MEDS: FINASTERIDE 5 MG TAB PO SCH (19:59)
[2023-04-26] MEDS: HYDROcodone/APAP 7.5-325MG 1 EACH TAB PO PRN ×2 (05:28→21:52)
[2023-04-26] MEDS: LACTATED RINGERS 1,000 ML IV SCH (05:31)
[2023-04-26 08:37] LABS: Basophils # (A) 0 X 10*3/uL (0.00-0.10); Basophils % (A) 0 %; Eosinophils # (A) 0 X 10*3/uL (0.04-0.35); Eosinophils % (A) 0 %; HCT 33.6 % (39.6-50.0); HGB 11.3 g/dL (13.0-17.0); Lymphocytes # (A) 1.09 X 10*3/uL (0.90-5.00); MCHC 33.6 g/dL (32.0-37.0); MCV 86.4 FL (80.0-97.0); Mean Platelet Volume 12.1 FL (9.5-12.2); NRBC Per 100 WBC 0 X 10*3/uL (0.00-0.01); Neutrophils # (A) 8.44 X 10*3/uL (1.80-7.70); Neutrophils % (A) 77.6 %; Platelet Count 89 X 10*3/uL (140-440); RBC 3.89 X 10*6/uL (4.40-5.60); RDW 13.4 % (11.5-14.5); WBC 10.87 X 10*3/uL (4.50-10.00)
[2023-04-26] MEDS: ASCORBIC ACID 500 MG TAB PO SCH (08:55)
[2023-04-26] MEDS: PREGABALIN 100 MG CAP PO SCH ×2 (08:55→21:52)
[2023-04-26] MEDS: atenoloL 50 MG TAB PO SCH ×2 (08:55→21:52)
[2023-04-26] MEDS: CHOLECALCIFEROL 25 MCG (1000 IU) TABLET PO SCH (08:55)
[2023-04-26] MEDS: RIVAROXABAN 10 MG TAB PO SCH (08:55)
--- NOTE | 2023-04-26 11:13 | P.PN ---
Subjective Progress Note Date: 04/26/23 Principal diagnosis: Left knee osteoarthritis Patient was seen at bedside this morning sitting up in chair with dressing over left knee. Patient says she did get up with physical therapy this morning and walked around the room and down the hallway. Patient says she did do well with therapy this morning. Patient says he does not have a walker at home. Patient says he has urinated several times since surgery yesterday without issue. Patient says he would like to go home on discharge and is hoping stay one more night for additional therapy and pain control. Patient denies chest pain, fever, shortness breath, nausea, vomiting, change in vision, loss of bowel/bladder control. Objective - Vital Signs Vital signs: Vital Signs Temp 98.8 F 04/26/23 07:14 Pulse 63 04/26/23 07:14 Resp 15 04/26/23 07:14 BP 128/74 04/26/23 07:14 Pulse Ox 95 04/26/23 08:32 FiO2 Intake & Output 04/25/23 04/26/23 04/26/23 18:59 06:59 18:59 Intake Total 251 Output Total 1050 Balance -799 Weight 98.5 kg Intake: IV 251 Output: Urine 1000 Estimated Blood Loss 50 Other: Voiding Method Urinal # Voids 1 - Exam Left knee: Incision is clean, dry, and intact. The exofin fusion tape is in good condition. There is minimal soft tissue swelling and ecchymosis surrounding the medial and lateral aspects of the incision. Calf is soft, no tenderness with palpation. Plantar flexion, dorsiflexion, EHL, FHL are intact. Sensory exam to light touch throughout the extremity is intact, dorsal pedis pulses 2+. - Labs CBC & Chem 7: 04/26/23 05:54 Labs: Abnormal Lab Results - Last 24 Hours (Table) 04/26/23 Range/Units 05:54 WBC 10.87 H (4.50-10.00) X 10*3/uL RBC 3.89 L (4.40-5.60) X 10*6/uL Hgb 11.3 L (13.0-17.0) g/dL Hct 33.6 L (39.6-50.0) % Plt Count 89 L (140-440) X 10*3/uL Neutrophils # 8.44 H (1.80-7.70) X 10*3/uL Monocytes # 1.30 H (0.20-1.00) X 10*3/uL Eosinophils # 0 L (0.04-0.35) X 10*3/uL Assessment and Plan Assessment: 1. Left knee osteoarthritis - Postop day status post left total knee arthroplasty Plan: 1. Left knee osteoarthritis - left total knee arthroplasty performed yesterday, 04/25/2023. Patient stable at bedside this morning. Patient did do well with therapy this morning. We will plan to keep patient 1 more night for additional therapy and pain control. Continue with pain medication as needed. Weightbearing as tolerated with walker and assistance as necessary. Prescription for walker was signed. Plan for discharge home tomorrow with health services. 2. Appreciate medical management 3. Pain management - [facility] 4. DVT prophylaxis - Xarelto 5. GI prophylaxis - senna 6. PT/OT - weightbearing as tolerated with walker 7. Encourage incentive spirometer use 8. Discharge planning - Plan for discharge home tomorrow with health services. Time with Patient: Less than 30
--- NOTE | 2023-04-26 12:57 | P.CONS ---
History of Present Illness - Reason for Consult Consult date: 04/26/23 Medical management hypertension, COPD Requesting physician: Santino Samuel - Chief Complaint Left knee osteoarthritis - History of Present Illness This is an 83-year-old gentleman with past medical history significant for osteoarthritis, CAD, COPD, obstructive sleep apnea, obesity, gastroesophageal reflux disease, hypertension, hyperlipidemia, prostate disorder and multiple other medical issues admitted with Left knee osteoarthrosis, status post left total knee arthroplasty. Tolerated procedure well. Reports pain throughout the night, improving this morning. PT pending. Denies nausea or vomiting. No flatus. Denies chest pain, palpitations or shortness of breath. Blood pressure controlled. Maintaining O2 sats in the high 90s on room air. Review of Systems ROS Statement: Those systems with pertinent positive or pertinent negative responses have been documented in the HPI. ROS Other: All systems not noted in ROS Statement are negative. Past Medical History Past Medical History: Coronary Artery Disease (CAD), COPD, GERD/Reflux, Hearing Disorder / Deafness, Hyperlipidemia, Hypertension, Osteoarthritis (OA), Prostate Disorder, Sleep Apnea/CPAP/BIPAP Additional Past Medical History / Comment(s): Back pain, pain in legs, NT in feet. History of Any Multi-Drug Resistant Organisms: None Reported Past Surgical History: Heart Catheterization With Stent Additional Past Surgical History / Comment(s): PAIN CLINIC PROCEDURE. CYSTOSCOPY WITH UROLIFT. RIGHT HYDROCELE REPAIR, SPERMATOCELECTOMY W/ PARTIAL EPIDIDYMECTOMY Past Anesthesia/Blood Transfusion Reactions: No Reported Reaction Date of Last Stent Placement:: 2009 Past Psychological History: No Psychological Hx Reported Smoking Status: Former smoker Past Alcohol Use History: None Reported Additional Past Alcohol Use History / Comment(s): SMOKING AT AGE 19, QUIT AT AGE 24, SMOKED A CIGAR A DAY Past Drug Use History: None Reported Additional Drug Use History / Comment(s): . - Past Family History Father Family Medical History: Cancer Mother Family Medical History: Cancer Daughter(s) Family Medical History: Deep Vein Thrombosis (DVT) Sister(s) Family Medical History: Cancer Additional Family Medical History / Comment(s): colon cancer Brother(s) Family Medical History: Cancer Medications and Allergies Home Medications Medication Instructions Recorded Confirmed Type Aspirin [Adult Low Dose Aspirin EC] 81 mg PO HS 03/09/18 04/20/23 History Tamsulosin [Flomax] 0.4 mg PO HS 03/09/18 04/25/23 History Omeprazole 20 mg PO QAM 12/02/19 04/25/23 History Pregabalin 100 mg PO HS 12/02/19 04/25/23 History atenoloL [Tenormin] 50 mg PO BID 12/02/19 04/25/23 History HYDROcodone/APAP 5-325MG [[place] 1 tab PO TID PRN 09/29/21 04/25/23 History 5-325] Ascorbic Acid [Vitamin C] 1,000 mg PO QAM 09/12/22 04/25/23 History Cholecalciferol [Vitamin D3 (25 25 mcg PO QAM 09/12/22 04/25/23 History Mcg = 1000 Iu)] Cyanocobalamin (Vitamin B-12) 1,000 mcg PO QAM 09/12/22 04/25/23 History [Vitamin B-12] Ferrous Sulfate [Feosol] 325 mg PO QAM 09/12/22 04/25/23 History Fluticasone/Umeclidin/Vilanter 1 puff INHALATION DAILY 09/12/22 04/25/23 History [Trelegy Ellipta 200-62.5-25] Magnesium 250 mg PO QAM 09/12/22 04/25/23 History Mirabegron [Myrbetriq] 25 mg PO HS 09/12/22 04/25/23 History Snyder-3/Dha/Epa/Fish Oil [Fish Oil 1 each PO QAM 09/12/22 04/25/23 History 1,000 mg Softgel] Ubidecarenone [Co Q-10] 100 mg PO QAM 09/12/22 04/25/23 History Vitamin E (Dl,Tocopheryl Acet) 400 unit PO QAM 09/12/22 04/25/23 History [Vitamin E (400 Iu = 180 mg)] Losartan [Cozaar] 50 mg PO HS 09/16/22 04/25/23 History Albuterol Inhaler [Ventolin Hfa 90 mcg INHALATION Q4HR PRN 09/28/22 04/25/23 H istory Inhaler] Finasteride [Proscar] 5 mg PO HS 09/28/22 04/25/23 History Vitamin K2 100 mcg PO DAILY 04/20/23 04/25/23 History Zinc Gluconate [Zinc] 50 mg PO DAILY 04/20/23 04/25/23 History Allergies Allergy/AdvReac Type Severity Reaction Status Date / Time tramadol Allergy Rash/Hives Verified 04/25/23 08:07 Physical Exam Vitals: Vital Signs Temp Pulse Resp BP Pulse Ox 04/26/23 08:32 95 04/26/23 07:14 98.8 F 63 15 128/74 97 04/26/23 02:00 98.8 F 71 16 122/62 95 04/25/23 20:00 98.1 F 80 17 110/62 95 04/25/23 15:16 60 106/58 93 L 04/25/23 15:12 68 114/58 92 L 04/25/23 15:11 64 129/63 97 Intake and Output 04/25/23 04/26/23 04/26/23 22:59 06:59 14:59 Output Total 1000 Balance -1000 Output: Urine 1000 Other: Voiding Method Urinal # Voids 1 PHYSICAL EXAM: VITAL SIGNS: [As above] GENERAL: Alert and oriented 3, Sitting up in bed, no acute distress HEENT: Conjunctivae normal. eyes normal. NECK: Supple, No JVD. CARDIOVASCULAR: S1, S2 regular..No murmur RESPIRATION: Unlabored, equal air entry,Breath sounds diminished in the bases. No rhonchi or crackles. No bronchial breathing. ABDOMEN: Soft, nontender . No guarding. no masses palpable. No ascites, No hepatosplenomegaly.Bowel sounds heard. LEGS: Left leg Grayson wrapped, no calf tenderness NERVOUS SYSTEM: Cranial N 2-12 grossly normal. Moves all 4 limbs. No focal deficits. Strength and sensation grossly intact. Skin: Warm and dry, no rash Results CBC & Chem 7: 04/26/23 05:54 Labs: Abnormal Lab Results - Last 24 Hours (Table) 04/26/23 Range/Units 05:54 WBC 10.87 H (4.50-10.00) X 10*3/uL RBC 3.89 L (4.40-5.60) X 10*6/uL Hgb 11.3 L (13.0-17.0) g/dL Hct 33.6 L (39.6-50.0) % Plt Count 89 L (140-440) X 10*3/uL Neutrophils # 8.44 H (1.80-7.70) X 10*3/uL Monocytes # 1.30 H (0.20-1.00) X 10*3/uL Eosinophils # 0 L (0.04-0.35) X 10*3/uL Assessment and Plan Assessment: Left knee osteoarthrosis, status post left total knee arthroplasty CAD COPD Gastroesophageal reflux disease Hypertension Hyperlipidemia Obstructive sleep apnea Morbid obesity, BMI 33 Former nicotine dependence Plan: Continue on current medication regime ,monitoring and symptomatic treatment. PPI ordered for GI prophylaxis. Aggressive pulmonary toileting with incentive spirometer reenforced. Pain management/DVT prophylaxis as per primary. PT pending. Follow-up with PCP in one week. Thank you for the consult. The impression and plan of care has been dictated as directed. : I performed a history and examination of this patient, discussed the same with the dictator. I agree with the dictator's note ,documented as a scribe. Any additional findings or plans will be noted.
[2023-04-26] MEDS ORDERED: ALBUTEROL NEBULIZED 2.5 MG/3 ML INHALATION PRN (13:13)
[2023-04-26] MEDS ORDERED: PANTOPRAZOLE 40 MG/10 ML VIAL IVP SCH (13:15)
--- NOTE | 2023-04-26 14:55 | P.PN ---
Progress Note - Text Progress Note Date: 04/26/23 Postoperative day # 1 status post total knee arthroplasty, and adductor canal catheter placed for postoperative analgesia, currently at ropivacaine 0.2% 8 mL per hour and continuous infusion, visual analogue scale is 3-4/10, patient using oral pain medication for breakthrough pain. Assessment and plan= Acute postoperative pain, adductor canal catheter for pain control, pain is well controlled we'll continue the same management. Patient was seen 07:10 AM
[2023-04-26] MEDS: IPRATROPIUM 0.5 MG/2.5 ML NEBU INHALATION SCH ×2 (15:40→20:23)
[2023-04-26] MEDS: SYMBICORT 80-4.5 MCG INHALER INHALATION SCH (20:23)
[2023-04-26] MEDS: FINASTERIDE 5 MG TAB PO SCH (21:52)
[2023-04-26] MEDS: SENNOSIDES-DOCUSATE SODIUM 1 EACH TAB PO SCH (21:52)
[2023-04-26] MEDS: TAMSULOSIN 0.4 MG CAP.ER.24H PO SCH (21:52)
[2023-04-26] MEDS: LOSARTAN 50 MG TAB PO SCH (21:52)
[2023-04-27] MEDS: PANTOPRAZOLE 40 MG TABLET PO SCH (06:42)
[2023-04-27] MEDS: LACTATED RINGERS 1,000 ML IV SCH (06:43)
[2023-04-27] MEDS: SYMBICORT 80-4.5 MCG INHALER INHALATION SCH ×2 (08:46→20:14)
[2023-04-27] MEDS: IPRATROPIUM 0.5 MG/2.5 ML NEBU INHALATION SCH ×4 (08:47→20:14)
[2023-04-27] MEDS: HYDROmorphone 0.5 MG/0.5 ML SYRINGE IVP PRN (09:21)
[2023-04-27] MEDS: ASCORBIC ACID 500 MG TAB PO SCH (09:22)
[2023-04-27] MEDS: RIVAROXABAN 10 MG TAB PO SCH (09:22)
[2023-04-27] MEDS: atenoloL 50 MG TAB PO SCH ×2 (09:22→21:10)
[2023-04-27] MEDS: CHOLECALCIFEROL 25 MCG (1000 IU) TABLET PO SCH (09:22)
[2023-04-27] MEDS: PREGABALIN 100 MG CAP PO SCH ×2 (09:22→21:09)
--- NOTE | 2023-04-27 13:01 | P.PN ---
Subjective Progress Note Date: 04/27/23 Principal diagnosis: Status post left total knee arthroplasty Patient was evaluated today at bedside, he is resting in his hospital chair, he has multiple family members at bedside. I was contacted by nursing's morning regarding patient running a fever, this has improved. Patient does feel okay at this time, he is still struggling a little bit with ambulation requiring some assistance. Patient is very eager to go home with home health care, he is hoping to stay 1 additional night. He feels that the pain is better controlled today. Currently denies headaches, lightheadedness, chest pain or shortness of breath Objective - Vital Signs Vital signs: Vital Signs Temp 98.7 F 04/27/23 07:16 Pulse 67 04/27/23 07:16 Resp 17 04/27/23 07:16 BP 105/62 04/27/23 07:16 Pulse Ox 97 04/27/23 08:45 FiO2 Intake & Output 04/26/23 04/27/23 04/27/23 18:59 06:59 18:59 Other: # Voids 5 2 - Exam Left lower extremity: Incision is clean, dry, and intact. The exofin fusion tape is in good condition. There is minimal soft tissue swelling and ecchymosis surrounding the medial and lateral aspects of the incision. Calf is soft, no tenderness with palpation. Plantar flexion, dorsiflexion, EHL, FHL are intact. Sensory exam to light touch throughout the extremity is intact, dorsal pedis pulses 2+. - Labs CBC & Chem 7: 04/26/23 05:54 Assessment and Plan Assessment: Postoperative day #2 status post left total knee arthroplasty Plan: Pain control, continue subcu current medications DVT prophylaxis, continue Xarelto during hospital stay, likely utilize aspirin 325 mg daily after discharge Wound care instructions were discussed, this including icing and elevating and showering Encourage incentive spirometer Continue PT/OT, weight-bear as tolerated with walker Medical recommendations Discharge planning: Would like to keep patient in hospital for additional day to help with overall mobility, plan for discharge to home with home health care on 04/28/2023 Time with Patient: Less than 30
[2023-04-27] MEDS ORDERED: polyethylene glycoL 3350 17 GM POWD.PACK PO STA (13:44)
--- NOTE | 2023-04-27 14:32 | P.PN ---
Subjective Progress Note Date: 04/27/23 Consult date: 04/26/23 Medical management hypertension, COPD Requesting physician: Santino Samuel - Chief Complaint Left knee osteoarthritis - History of Present Illness This is an 83-year-old gentleman with past medical history significant for osteoarthritis, CAD, COPD, obstructive sleep apnea, obesity, gastroesophageal reflux disease, hypertension, hyperlipidemia, prostate disorder and multiple other medical issues admitted with Left knee osteoarthrosis, status post left t otal knee arthroplasty. Tolerated procedure well. Reports pain throughout the night, improving this morning. PT pending. Denies nausea or vomiting. No flatus. Denies chest pain, palpitations or shortness of breath. Blood pressure controlled. Maintaining O2 sats in the high 90s on room air. 04/27/2023 complains of constipation, abdomen mildly distended, nontender. Positive diet intake, denies nausea vomiting or diarrhea. Reports he ambulated yesterday, tolerating exertion well. Pain controlled. Denies chest pain, palpitations or shortness of breath. T-max 101, denies cough, congestion. Denies chills or sweats. Objective - Vital Signs Vital signs: Vital Signs Temp 98.7 F 04/27/23 07:16 Pulse 67 04/27/23 07:16 Resp 17 04/27/23 07:16 BP 105/62 04/27/23 07:16 Pulse Ox 97 04/27/23 08:45 FiO2 Intake & Output 04/26/23 04/27/23 04/27/23 18:59 06:59 18:59 Other: # Voids 5 2 - Exam PHYSICAL EXAM: VITAL SIGNS: [As above] GENERAL: Alert and oriented 3, Sitting up in chair, no acute distress HEENT: Normocephalic,Conjunctivae normal. eyes normal. NECK: Supple, No JVD. CARDIOVASCULAR: S1, S2 regular.No murmur RESPIRATION: Unlabored, equal air entry,Breath sounds diminished in the bases. No rhonchi or crackles. No bronchial breathing. ABDOMEN: Soft, mildly distended, nontender . No guarding. no masses palpable.+BS LEGS: Left leg Grayson wrapped, no calf tenderness NERVOUS SYSTEM: Cranial N 2-12 grossly normal. Moves all 4 limbs. No focal deficits. Strength and sensation grossly intact. Skin: Warm and dry, no rash - Labs CBC & Chem 7: 04/26/23 05:54 Assessment and Plan Assessment: Left knee osteoarthrosis, status post left total knee arthroplasty Atelectasis, postoperative, expected outcome. CAD COPD Gastroesophageal reflux disease Hypertension Hyperlipidemia Obstructive sleep apnea Morbid obesity, BMI 33 Former nicotine dependence Plan: Continue on current medication regime ,monitoring and symptomatic treatment. Maintain aggressive pulmonary toileting with incentive spirometer reenforced. Pain management/DVT prophylaxis as per primary. PT pending. Discharge planning in progress as per orthopedic surgery. Follow-up with PCP in one week. The impression and plan of care has been dictated as directed. : I performed a history and examination of this patient, discussed the same with the dictator. I agree with the dictator's note ,documented as a scribe. Any additional findings or plans will be noted.
[2023-04-27] MEDS: HYDROcodone/APAP 7.5-325MG 1 EACH TAB PO PRN ×2 (15:14→21:09)
[2023-04-27] MEDS: SENNOSIDES-DOCUSATE SODIUM 1 EACH TAB PO SCH (21:09)
[2023-04-27] MEDS: TAMSULOSIN 0.4 MG CAP.ER.24H PO SCH (21:09)
[2023-04-27] MEDS: FINASTERIDE 5 MG TAB PO SCH (21:10)
[2023-04-27] MEDS: LOSARTAN 50 MG TAB PO SCH (21:10)
[2023-04-28] MEDS: PANTOPRAZOLE 40 MG TABLET PO SCH (06:48)
[2023-04-28] MEDS: HYDROcodone/APAP 7.5-325MG 1 EACH TAB PO PRN ×2 (06:48→14:17)
[2023-04-28] MEDS ORDERED: polyethylene glycoL 3350 17 GM POWD.PACK PO STA (08:38)
[2023-04-28] MEDS: LACTATED RINGERS 1,000 ML IV SCH (08:51)
[2023-04-28] MEDS: SYMBICORT 80-4.5 MCG INHALER INHALATION SCH (08:55)
[2023-04-28] MEDS: IPRATROPIUM 0.5 MG/2.5 ML NEBU INHALATION SCH ×2 (08:55→12:02)
[2023-04-28 09:10] VITALS: BP 104/63; PULSE 72; RESP 19; TEMP 98
[2023-04-28] MEDS: PREGABALIN 100 MG CAP PO SCH (10:43)
[2023-04-28] MEDS: CHOLECALCIFEROL 25 MCG (1000 IU) TABLET PO SCH (10:44)
[2023-04-28] MEDS: RIVAROXABAN 10 MG TAB PO SCH (10:44)
[2023-04-28] MEDS: atenoloL 50 MG TAB PO SCH (10:45)
[2023-04-28] MEDS: HYDROmorphone 0.5 MG/0.5 ML SYRINGE IVP PRN (10:46)
[2023-04-28] MEDS: ASCORBIC ACID 500 MG TAB PO SCH (10:58)
[2023-04-28] MEDS ORDERED: polyethylene glycoL 3350 17 GM POWD.PACK PO SCH (11:00)
--- NOTE | 2023-04-28 11:00 | P.PN ---
Subjective Progress Note Date: 04/28/23 Consult date: 04/26/23 Medical management hypertension, COPD Requesting physician: Santino Samuel - Chief Complaint Left knee osteoarthritis - History of Present Illness This is an 83-year-old gentleman with past medical history significant for osteoarthritis, CAD, COPD, obstructive sleep apnea, obesity, gastroesophageal reflux disease, hypertension, hyperlipidemia, prostate disorder and multiple other medical issues admitted with Left knee osteoarthrosis, status post left t otal knee arthroplasty. Tolerated procedure well. Reports pain throughout the night, improving this morning. PT pending. Denies nausea or vomiting. No flatus. Denies chest pain, palpitations or shortness of breath. Blood pressure controlled. Maintaining O2 sats in the high 90s on room air. 04/27/2023 complains of constipation, abdomen mildly distended, nontender. Positive diet intake, denies nausea vomiting or diarrhea. Reports he ambulated yesterday, tolerating exertion well. Pain controlled. Denies chest pain, palpitations or shortness of breath. T-max 101, denies cough, congestion. Denies chills or sweats. 04/28/2023 . Passing flatus, no bowel movement. Complains of left plantar pain with standing. Denies chest pain, palpitations or shortness of breath. Afebrile, T-max 99.2. Denies chills sweats cough or congestion. Denies lightheadedness dizziness or focal deficits. Denies chest pain, palpitations or shortness of breath. Maintaining O2 sats in the high 90s on room air. Objective - Vital Signs Vital signs: Vital Signs Temp 98.0 F 04/28/23 07:23 Pulse 72 04/28/23 09:07 Resp 19 04/28/23 07:23 BP 104/63 04/28/23 07:23 Pulse Ox 99 04/28/23 08:56 FiO2 Intake & Output 04/27/23 04/28/23 04/28/23 18:59 06:59 18:59 Other: Voiding Method Urinal # Voids 2 - Exam PHYSICAL EXAM: VITAL SIGNS: [As above] GENERAL: Alert and oriented 3, Sitting up in chair, no acute distress HEENT: Normocephalic,Conjunctivae normal. eyes normal. NECK: Supple, No JVD. CARDIOVASCULAR: S1, S2 regular.No murmur RESPIRATION: Unlabored, equal air entry, bilateral bases diminished ABDOMEN: Soft, mildly distended, nontender . No guarding. no masses palpable.+BS LEGS: Left leg [place] wrapped, no calf tenderness NERVOUS SYSTEM: Cranial N 2-12 grossly normal. Moves all 4 limbs. No focal deficits. Strength and sensation grossly intact. Skin: Warm and dry, no rash - Labs CBC & Chem 7: 04/26/23 05:54 Assessment and Plan Assessment: Left knee osteoarthrosis, status post left total knee arthroplasty Atelectasis, postoperative, expected outcome. CAD COPD Gastroesophageal reflux disease Hypertension Hyperlipidemia Obstructive sleep apnea Morbid obesity, BMI 33 Former nicotine dependence Plan: Continue on current medication regime ,monitoring and symptomatic treatment. MiraLAX ordered. Continue aggressive pulmonary toileting with i ncentive spirometer reenforced. PT. Pain management/DVT prophylaxis as per primary. Discharge planning in progress as per orthopedic surgery. Follow-up with PCP in one week. The impression and plan of care has been dictated as directed. : I performed a history and examination of this patient, discussed the same with the dictator. I agree with the dictator's note ,documented as a scribe. Any additional findings or plans will be noted.
[2023-04-28 11:33] LABS: Basophils # (A) 0.02 X 10*3/uL (0.00-0.10); Basophils % (A) 0.2 %; Eosinophils # (A) 0.23 X 10*3/uL (0.04-0.35); Eosinophils % (A) 2.6 %; HCT 34.7 % (39.6-50.0); HGB 11.8 g/dL (13.0-17.0); Lymphocytes # (A) 1.63 X 10*3/uL (0.90-5.00); Lymphocytes % (A) 18.3 %; MCH 29.4 pg (27.0-32.0); MCV 86.3 FL (80.0-97.0); Mean Platelet Volume 12.2 FL (9.5-12.2); Monocytes # (A) 0.86 X 10*3/uL (0.20-1.00); Monocytes % (A) 9.7 %; NRBC Per 100 WBC 0 X 10*3/uL (0.00-0.01); Neutrophils # (A) 6.13 X 10*3/uL (1.80-7.70); Neutrophils % (A) 68.8 %; Platelet Count 100 X 10*3/uL (140-440); RBC 4.02 X 10*6/uL (4.40-5.60); RDW 13.6 % (11.5-14.5); WBC 8.91 X 10*3/uL (4.50-10.00)
--- NOTE | 2023-04-28 14:03 | P.PN ---
Subjective Progress Note Date: 04/28/23 Principal diagnosis: Status post left total knee arthroplasty Patient was evaluated today at bedside, he is resting in his hospital chair, no acute distress. He was able to ambulate also daily with physical therapy. He states that the pain is feeling better. Currently denies headaches, lightheadedness, chest pain or shortness of breath Objective - Vital Signs Vital signs: Vital Signs Temp 98.0 F 04/28/23 07:23 Pulse 72 04/28/23 12:13 Resp 19 04/28/23 07:23 BP 104/63 04/28/23 07:23 Pulse Ox 99 04/28/23 08:56 FiO2 Intake & Output 04/27/23 04/28/23 04/28/23 18:59 06:59 18:59 Other: Voiding Method Urinal # Voids 2 - Exam Left lower extremity: Incision is clean, dry, and intact. The exofin fusion tape is in good condition. There is minimal soft tissue swelling and ecchymosis surrounding the medial and lateral aspects of the incision. Calf is soft, no tenderness with palpation. Plantar flexion, dorsiflexion, EHL, FHL are intact. Sensory exam to light touch throughout the extremity is intact, dorsal pedis pulses 2+. - Labs CBC & Chem 7: 04/28/23 06:20 Labs: Abnormal Lab Results - Last 24 Hours (Table) 04/28/23 Range/Units 06:20 RBC 4.02 L (4.40-5.60) X 10*6/uL Hgb 11.8 L (13.0-17.0) g/dL Hct 34.7 L (39.6-50.0) % Plt Count 100 L (140-440) X 10*3/uL Assessment and Plan Assessment: Postoperative day #3 status post left total knee arthroplasty Plan: Pain control, [place] 7.5 mg/325 mg DVT prophylaxis, aspirin 325 mg daily Wound care instructions were discussed, this including icing and elevating and showering Encourage incentive spirometer Continue PT/OT, weight-bear as tolerated with walker Medical recommendations Discharge planning: Plan for discharge home today with home health care Time with Patient: Less than 30
--- NOTE | 2023-04-28 14:07 | P.DS ---
Providers Date of admission: 04/26/23 13:25 Expected date of discharge: 04/28/23 Attending physician: Santino Samuel Consults: 04/25/23 10:08 Consult Physician Routine Consulting Provider: Ryan Pizano Reason/Comments: medical management s/p left total knee arthroplasty Do you want consulting provider notified?: Yes Primary care physician: Ryan Pizano Hospital Course: Date of admission: 04/25/2023 Date of discharge: 2022 Admission diagnosis: Status post left total knee arthroplasty Discharge diagnosis: Same Attending physician: Dr. Samuel Surgical procedures: Left total knee arthroplasty Brief history: Patient is a 83-year-old male with a history of progressive primary left knee osteoarthritis. At this point patient has failed conservative treatment measures and has opted to proceed with a elective left total knee arthroplasty. Hospital course: Details of patient's surgery can be found in operative report. Patient tolerated the procedure well and was subsequently transported to orthopedic floor. Patient's orthopeidc and medical care was provided daily. Patient had daily laboratory tests performed for evaluation of overall blood counts. Patient had daily physical therapy to include strengthening range of motion as well as education with walker ambulation. Patient was treated with Xarelto for their postoperative DVT prophylaxis during their inpatient stay. Patient was noted to have a relatively uneventful postoperative course. Patient reported satisfactory pain control with oral pain medications by postoperative day 1. Patient showed satisfactory progress with physical therapy. Patient moved steadily through the program and had no difficulty meeting the goals by postoperative day 3. Given patient's otherwise satisfactory course and having met physical therapy goals, plan is to discharge patient home on postoperative day 3. Discharge condition/disposition: Patient will be discharged home in stable condition. Discharge medications: Instructions are given on resumption of patient's normal daily medications per primary care recommendation, in addition patient will be prescribed [place] 7.5 mg/325 mg, aspirin 325 mg, senna S, MiraLAX 17 g. Discharge instructions: 1. Wound care and infection precautions, keep incision dry and covered while showering, no lotions, creams, moisturizers. No soaking, tubs, pools, hottubs. Do not scrub over the incision. 2. Weight-bear as tolerated with walker / cane until follow-up. 3. Ice and elevate when necessary. Do not exceed 20 minutes per hour with ice pack. 4. Utilize compression sleeve until seen at first follow up appointment. 5. Visiting nursing care. 6. Home physical therapy including home CPM. 7. Pain meds and anticoagulants per prescription. 8. Pain medication has potential to cause constipation. Increase oral fluid and fiber intake. Contact primary care provider if you have not had a bowel movement within 48 hours after discharge 9. No anti-inflammatory medication until discussed at first post operative visit, this including Motrin, Aleve, Mobic, Diclofenac. 10. Follow up in office at 2 weeks postop with Joaquim Granados PA-C/Qasim Sidhu 11. Follow up with your primary care doctor 7-10 days after discharge. 12. Contact [facility] with any questions, . Procedures: Left total knee arthroplasty Patient Condition at Discharge: Good Plan - Discharge Summary Discharge Rx Participant: No New Discharge Prescriptions: New Aspirin 325 mg PO DAILY #30 tab polyethylene glycoL 3350 [Miralax] 17 gm PO DAILY PRN #21 packet PRN Reason: Constipation HYDROcodone/APAP 7.5-325MG [[place] 7.5] 1 each PO Q6HR PRN #28 tab PRN Reason: Pain Sennosides/Docusate Sodium [Senna-S 8.6-50 mg Tablet] 2 each PO DAILY PRN #30 tablet PRN Reason: Constipation No Action Tamsulosin [Flomax] 0.4 mg PO HS Aspirin [Adult Low Dose Aspirin EC] 81 mg PO HS Omeprazole 20 mg PO QAM atenoloL [Tenormin] 50 mg PO BID Pregabalin 100 mg PO HS Ubidecarenone [Co Q-10] 100 mg PO QAM Ascorbic Acid [Vitamin C] 1,000 mg PO QAM Finasteride [Proscar] 5 mg PO HS Zinc Gluconate [Zinc] 50 mg PO DAILY HYDROcodone/APAP 5-325MG [[place] 5-325] 1 tab PO TID PRN PRN Reason: Pain Vitamin E (Dl,Tocopheryl Acet) [Vitamin E (400 Iu = 180 mg)] 400 unit PO QAM Cholecalciferol [Vitamin D3 (25 Mcg = 1000 Iu)] 25 mcg PO QAM Ferrous Sulfate [Feosol] 325 mg PO QAM [place]-3/Dha/Epa/Fish Oil [Fish Oil 1,000 mg Softgel] 1 each PO QAM Magnesium 250 mg PO QAM Cyanocobalamin (Vitamin B-12) [Vitamin B-12] 1,000 mcg PO QAM Mirabegron [Myrbetriq] 25 mg PO HS Fluticasone/Umeclidin/Vilanter [Trelegy Ellipta 200-62.5-25] 1 puff INHALATION DAILY Losartan [Cozaar] 50 mg PO HS Albuterol Inhaler [Ventolin Hfa Inhaler] 90 mcg INHALATION Q4HR PRN PRN Reason: Shortness Of Breath Vitamin K2 100 mcg PO DAILY Discharge Medication List Aspirin [Adult Low Dose Aspirin EC] 81 mg PO HS 03/09/18 [History] Tamsulosin [Flomax] 0.4 mg PO HS 03/09/18 [History] Omeprazole 20 mg PO QAM 12/02/19 [History] Pregabalin 100 mg PO HS 12/02/19 [History] atenoloL [Tenormin] 50 mg PO BID 12/02/19 [History] HYDROcodone/APAP 5-325MG [[place] 5-325] 1 tab PO TID PRN 09/29/21 [History] Ascorbic Acid [Vitamin C] 1,000 mg PO QAM 09/12/22 [History] Cholecalciferol [Vitamin D3 (25 Mcg = 1000 Iu)] 25 mcg PO QAM 09/12/22 [History] Cyanocobalamin (Vitamin B-12) [Vitamin B-12] 1,000 mcg PO QAM 09/12/22 [History] Ferrous Sulfate [Feosol] 325 mg PO QAM 09/12/22 [History] Fluticasone/Umeclidin/Vilanter [Trelegy Ellipta 200-62.5-25] 1 puff INHALATION DAILY 09/12/22 [History] Magnesium 250 mg PO QAM 09/12/22 [History] Mirabegron [Myrbetriq] 25 mg PO HS 09/12/22 [History] [place]-3/Dha/Epa/Fish Oil [Fish Oil 1,000 mg Softgel] 1 each PO QAM 09/12/22 [History] Ubidecarenone [Co Q-10] 100 mg PO QAM 09/12/22 [History] Vitamin E (Dl,Tocopheryl Acet) [Vitamin E (400 Iu = 180 mg)] 400 unit PO QAM 09/12/22 [History] Losartan [Cozaar] 50 mg PO HS 09/16/22 [History] Albuterol Inhaler [Ventolin Hfa Inhaler] 90 mcg INHALATION Q4HR PRN 09/28/22 [History] Finasteride [Proscar] 5 mg PO HS 09/28/22 [History] Vitamin K2 100 mcg PO DAILY 04/20/23 [History] Zinc Gluconate [Zinc] 50 mg PO DAILY 04/20/23 [History] Aspirin 325 mg PO DAILY #30 tab 04/28/23 [Rx] HYDROcodone/APAP 7.5-325MG [[place] 7.5] 1 each PO Q6HR PRN #28 tab 04/28/23 [Rx] Sennosides/Docusate Sodium [Senna-S 8.6-50 mg Tablet] 2 each PO DAILY PRN #30 tablet 04/28/23 [Rx] polyethylene glycoL 3350 [Miralax] 17 gm PO DAILY PRN #21 packet 04/28/23 [Rx] Follow up Appointment(s)/Referral(s): Qasim Freire PAC [PHYSICIAN MANAGER RAIL] - 2 Weeks Ryan Pizano DO [Primary Care Provider] - 1 Week [facility], [NON-STAFF] - As Needed Patient Instructions/Handouts: Knee Replacement (DC), Knee Replacement (GEN) Activity/Diet/Wound Care/Special Instructions: Orthopedic Discharge Instructions: 1. Wound care and infection precautions, keep incision dry and covered while showering, no lotions, creams, moisturizers. No soaking, pools, hot tubs. Do not scrub over incision. 2. Weight-bear as tolerated with walker / cane until follow-up. 3. Ice and elevate when necessary. Do not exceed 20 minutes per hour with ice pack. 4. Utilize compression sleeve until seen at first follow up appointment. 5. Pain meds and anticoagulants per prescription. 6. Pain medication has potential to cause constipation. Increase oral fluid and fiber intake. Contact primary care provider if you have not had a bowel movement within 48 hours after discharge. 7. No anti-inflammatory medication until discussed at first post operative visit, this including Motrin, Aleve, Mobic, Diclofenac. 8. Follow up in office at 2 weeks postop with Joaquim Granados PA-C / Qaism Freire PA-C 9. Follow up with your primary care doctor 7-10 days after discharge. 10. Contact [facility] with any questions, . Keep incision clean, dry, intact. While showering, cover fusion tape with Saran wrap. Keep fusion tape on until follow-up appointment in office in 2 weeks. Discharge Disposition: HOME WITH HOME HEALTH SERVICES
== END 2023-04-28 15:19 | disposition home health service (06) ==
LOC: OR 07:00 → 4SSUR 10:25 → OR 04-26 13:25 → 4SSUR 04-26 13:25
PROVIDERS: ADMIT Orthopaedic Surgery; ATTEND Orthopaedic Surgery
DX: M17.12 Unilateral primary osteoarthritis, left knee (principal); M25.762 Osteophyte, left knee; G89.18 Other acute postprocedural pain; R50.9 Fever, unspecified; J98.11 Atelectasis; I25.10 Atherosclerotic heart disease of native coronary artery without angina pectoris; J44.9 Chronic obstructive pulmonary disease, unspecified; G47.33 Obstructive sleep apnea (adult) (pediatric); K21.9 Gastro-esophageal reflux disease without esophagitis; I10 Essential (primary) hypertension; E78.5 Hyperlipidemia, unspecified; E66.01 Morbid (severe) obesity due to excess calories; Z68.33 Body mass index [BMI] 33.0-33.9, adult; Z95.5 Presence of coronary angioplasty implant and graft; Z87.891 Personal history of nicotine dependence; Z79.82 Long term (current) use of aspirin; Z79.899 Other long term (current) drug therapy; Z88.5 Allergy status to narcotic agent
CPT/HCPCS: 96376 ×2; 96361 ×4; 96365; 96366; 96375 ×2; 94640 ×4; 94760 ×4; 97116 ×2; 97161; 97530; 97535; 97166; 64999; 64448; 85025 ×2; 73560; 27447; G0378 ×3; C1713 ×2; C1776; C1751; S0138 ×3; J2250; J1200; J1100; J0690 ×2; J2405; J3010; J2795; C9113; J1170 ×3

== ENCOUNTER → 2023-09-25 | Outpatient (CLI) | payer MEDICARE ==
[2023-09-25 16:00] LABS: ALT 17 U/L (10-49); AST 17 U/L (14-35); Albumin 4.1 g/dL (3.8-4.9); Albumin/Globulin Ratio 2.16 Ratio (1.60-3.17); Alkaline Phosphatase 159 U/L (41-126); BUN/Creat Ratio 13.18 Ratio (12.00-20.00); Blood Urea Nitrogen 14.5 mg/dL (9.0-27.0); Calcium 10.9 mg/dL (8.7-10.3); Chloride 106 mmol/L (96-109); Chol/HDL Ratio 4.27 Ratio; Globulin 1.9 g/dL (1.6-3.3); Glucose 97 mg/dL (70-110); LDL Cholesterol,Calculated 111.7 mg/dL (0.0-131.0); Potassium 4.8 mmol/L (3.5-5.5); Sodium 142 mmol/L (135-145); Total Bilirubin 0.6 mg/dL (0.3-1.2)
== END | disposition home or self-care (01) ==
LOC: LABWHC1 09:25
PROVIDERS: ATTEND Internal Medicine Interventional Cardiology
DX: E78.2 Mixed hyperlipidemia (principal)
CPT/HCPCS: 36415; 80053; 80061

== ENCOUNTER → 2023-11-03 | Outpatient (CLI) | payer MEDICARE ==
--- NOTE | 2023-11-03 14:52 | MR ---
EXAMINATION TYPE: MR lumbar spine wo con DATE OF EXAM: 11/03/2023 12:49 PM CLINICAL INDICATION:Male, 83 years old with history of M47.816 LUMBAR PAIN, M48.02; PHH, BACK PAIN X1 0 YEARS AND IT TRAVELS DOWN PT'S RIGHT SIDE COMPARISON: Radiograph 07/17/2023 TECHNIQUE: Multiplanar, multisequential MR imaging of the lumbar spine performed per facility protocol. IV Contrast: cc . (None if empty) FINDINGS: Overall there are moderate to severe degenerative disc changes and facet arthrosis throughout the lum bar spine. There is mild loss of height of the vertebral bodies likely on a chronic/degenerative basi s, without evidence of marrow edema. There is some marrow edema at the endplates of L1 inferiorly and L2 superiorly compatible with inflammatory-type endplate signal changes. This appears somewhat great er on the right than left. There is otherwise no marrow edema suggestive of compression fracture. Marrow signal is mildly hetero geneous throughout, with no focal suspicious T1 dark lesions. Overall there is mild levocurvature of the lumbar spine. Degenerative retrolisthesis T12 on L1 measur es 5 mm, retrolisthesis L1 on L2 measures 4.8 mm, retrolisthesis L4 on L5 measures 4 mm, and anteroli sthesis L5 on S1 measures 4.9 mm. Cord: The conus medullaris terminates normally at the inferior aspect of L1. No conus enlargement or signal abnormality is seen. The descending intrathecal nerve roots at L1-L2 are tightly clustered tog ether with loss of the normal intrathecal CSF signal due to severe canal stenosis. No evidence of pat hologic intracanalicular fluid collection. Bones/Discs: Multilevel disc degeneration changes with osteophyte formation, disc space narrowing, fa cet joint arthropathy, and degenerative listheses above. These result in the below stenoses, unless o therwise indicated-- T12-L1: Moderate to severe spinal canal stenosis, severe bilateral neural foraminal stenosis. L1-L2: Severe spinal canal and bilateral neural foraminal stenosis. Exiting nerve roots are very like ly compressed. L2-L3: Moderate spinal canal and bilateral neuroforaminal stenosis. L3-L4: Moderate spinal canal and bilateral neuroforaminal stenosis. L4-L5: Small annular tear posteriorly. Mild spinal canal stenosis. Moderate to severe right neurofora kory stenosis. Severe left neural foraminal stenosis. L5-S1: Unroofing of the disc associated with the listhesis, and there is generalized disc bulging. Se benito spinal canal stenosis and severe bilateral neural foraminal stenosis. Other findings: Mild fatty atrophy of the paraspinous musculature. No abnormal fluid collections are seen. Visualized kidneys appear somewhat atrophic. There is at least one small T2 hyperintense lesio n in the right kidney with the appearance of a cyst. Aorta appears mildly tortuous without evidence o f aneurysm. IMPRESSION: 1. Moderate to severe multilevel lumbar spondylosis, detailed level by level above. 2. Of particular note, the descending intrathecal nerve roots at L1-L2 are tightly clustered together with loss of the normal intrathecal CSF signal due to severe canal stenosis. 3. Additional moderate to severe canal and foraminal stenoses at other levels, as described. 4. No evidence of acute compression fracture, discitis/osteomyelitis, or epidural abscess.
== END ==
LOC: RADMRIMAIN 11:42
PROVIDERS: ATTEND Orthopaedic Surgery
DX: M47.816 Spondylosis without myelopathy or radiculopathy, lumbar region (principal); M48.061 Spinal stenosis, lumbar region without neurogenic claudication
CPT/HCPCS: 72148

== ENCOUNTER → 2023-12-12 | Outpatient (CLI) | payer MEDICARE ==
[2023-12-12 10:12] LABS: HGB 13.9 gm/dL (13.0-17.5); MCH 28.9 pg (25.0-35.0); MCHC 31.6 g/dL (31.0-37.0); MCV 91.7 fL (80.0-100.0); Mean Platelet Volume 9.8; Platelet Count 123 k/uL (150-450); RDW 13.8 % (11.5-15.5); WBC 7.4 k/uL (3.8-10.6)
[2023-12-12 15:32] LABS: Blood Urea Nitrogen 15.9 mg/dL (9.0-27.0); Carbon Dioxide 26.7 mmol/L (21.6-31.8); Chloride 104 mmol/L (96-109); Potassium 4.9 mmol/L (3.5-5.5); Sodium 140 mmol/L (135-145)
== END | disposition home or self-care (01) ==
LOC: LABPAT 09:21
PROVIDERS: ATTEND Internal Medicine Interventional Cardiology
DX: Z01.812 Encounter for preprocedural laboratory examination (principal); R94.39 Abnormal result of other cardiovascular function study
CPT/HCPCS: 80051; 82565; 84520; 85027

== ENCOUNTER 2023-12-21 05:55 | Day surgery (SDC) | payer MEDICARE ==
[2023-12-19 14:39] VITALS: BMI 30.4
[2023-12-21] MEDS ORDERED: ASPIRIN 325 MG TAB PO STA (05:59)
[2023-12-21] MEDS ORDERED: ALPRAZolam 0.5 MG TAB PO PRN (05:59)
[2023-12-21] MEDS ORDERED: NITROGLYCERIN SL TABS 0.4 MG TAB SUBLINGUAL PRN (05:59)
[2023-12-21] MEDS ORDERED: ALPRAZolam 0.25 MG TAB PO PRN (05:59)
[2023-12-21 06:40] VITALS: RESP 18; TEMP 98.1
[2023-12-21] MEDS: IV FLUID CONTINUATION 1,000 ML IV ONE (06:40)
[2023-12-21] MEDS: SODIUM CHLORIDE 0.9% 1,000 ML in EMPTY BAG 1 BAG IV SCH (06:40)
[2023-12-21] MEDS ORDERED: LIDOCAINE 1% INJ 10MG/ML (20 ML MDV) ONE (07:13)
[2023-12-21] MEDS ORDERED: VERAPAMIL 2.5 MG/ML 2 ML AMP ONE (07:14)
[2023-12-21] MEDS ORDERED: fentaNYL (PF) 50 MCG/ML 2 ML AMP ONE (07:31)
[2023-12-21] MEDS ORDERED: HEPARIN SODIUM 1,000 UN/ML (10ML VL) ONE (07:31)
[2023-12-21] MEDS: fentaNYL (PF) 50 MCG/ML 2 ML AMP IVP ONE (07:41)
[2023-12-21] MEDS: LIDOCAINE 1% INJ 10MG/ML (20 ML MDV) SQ ONE (07:42)
[2023-12-21] MEDS: VERAPAMIL SYRINGE (5 MG/10 ML) INTRAARTER ONE (07:44)
[2023-12-21] MEDS: HEPARIN SODIUM 1,000 UN/ML (10ML VL) IV ONE (07:47)
[2023-12-21] MEDS: IOPAMIDOL-370 100ML BTL INJ ONE (08:02)
[2023-12-21] MEDS ORDERED: SODIUM CHLORIDE 0.9% 1,000 ML IV SCH (08:15)
[2023-12-21] MEDS ORDERED: RX INFO: IV CONTRAST WAS GIVEN 1 EACH MISC MISCELLANE PRN (08:15)
--- NOTE | 2023-12-21 08:21 | P.CARDCATH ---
Date of Procedure: 12/21/23 Description of Procedure: Cardiac Catheterization: The patient is an 83-year-old male with a known history of CAD status post stenting in 2009, history of hypertension and hyperlipidemia who presented with recurrent chest discomfort and had an abnormal MPI. Recommendations were made regarding cardiac catheterization, the risks and the complications were discussed with the patient who is in full understanding and agreement. Procedure Description: Patient was brought to micro lab analyst in fasting semi-sedated state after receiving Fentanyl and Benadryl achieiving moderate conscious sedated state. Using Xylocaine Anesthesia and modified Seldinger technique, a 6-[place] sheath was introduced in the right radial artery . Subsequently, selective coronary angiography was performed using a 5-[place] 3.5 bend Bridget catheter. Multiple views of the coronary artery including hemiaxial views were obtained. The right Bridget catheter was used to cross the aortic valve and LVEDP was calculated. Following that, catheter and sheath were removed. Hemostasis was obtained with deployment of vascular band . There was no immediate complication. Patient was returned to room in stable condition. Of note, the patient received a total of 5000 units of intravenous heparin as well as intra-arterial verapamil. Findings: Left main: This is a short size vessel, bifurcating into LAD and left circumflex, left main has no obstructive disease LAD: This is a large size vessel, reaching to the apex, giving rise to a pro ximal diagonal branch. The stented segment proximally is patent with no evidence of in-stent restenosis. Distal to the stent there is a 20 to 30% eccentric lesion with no progression compared to 2019. The rest of the vessel has no high-grade stenosis Left circumflex: This is a large nondominant vessel giving rise to 3 obtuse marginal branch. The left circumflex and its branches have no obstructive disease RCA: This is a large dominant vessel, bifurcating distally to PDA and PLV. The right coronary artery and mid segment has a 20 to 30% plaque with no high-grade stenosis Left Ventriculogram: Not performed Hemodynamics: There was no gradient across the aortic valve, LVEDP was 24-28 mmHg Conclusion: 1. Patent stent in the proximal LAD with no evidence of in-stent restenosis 2. Mild plaque in the LAD and the right coronary artery with no progression compared to 2019 3. Elevated LVEDP 4. Right dominance Recommendations: I have recommended to continue medical therapy with the aggressive coronary risks modification that has been initiated. The findings and the recommendations were discussed with the patient and the family and they were in full understanding and agreement. Duration of sedation is 20 minutes.
[2023-12-21] MEDS ORDERED: ASPIRIN 81 MG PO SCH (09:00)
[2023-12-21] MEDS ORDERED: atenoloL 50 MG TAB PO SCH ×2 (09:00→21:00)
[2023-12-21 11:06] VITALS: BP 124/62; PULSE 48
[2023-12-21] MEDS ORDERED: ATORVASTATIN 10 MG TAB PO SCH (21:00)
[2023-12-21] MEDS ORDERED: LOSARTAN 50 MG TAB PO SCH (21:00)
[2023-12-22] MEDS ORDERED: FINASTERIDE 5 MG TAB PO SCH (09:00)
== END 2023-12-21 12:18 | disposition home or self-care (01) ==
LOC: CATHCVL 05:55
PROVIDERS: ATTEND Internal Medicine Interventional Cardiology
DX: I25.10 Atherosclerotic heart disease of native coronary artery without angina pectoris (principal)
CPT/HCPCS: 93458; C1769 ×3; C1894; J2001; J3010; J1644; Q9967

== ENCOUNTER → 2024-04-23 | Outpatient (CLI) | payer MEDICARE | END | disposition home or self-care (01) | LOC: LABPAT 08:27 | PROVIDERS: ATTEND Orthopaedic Surgery | DX: Z01.818 Encounter for other preprocedural examination (principal); Z22.322 Carrier or suspected carrier of Methicillin resistant Staphylococcus aureus; M17.11 Unilateral primary osteoarthritis, right knee | CPT/HCPCS: 87070 ==

== ENCOUNTER → 2024-05-14 | Outpatient (CLI) | payer MEDICARE ==
[2024-05-14 15:10] LABS: Prothrombin Time 10.9 sec (10.0-12.5)
== END | disposition home or self-care (01) ==
LOC: LABPAT 14:07
PROVIDERS: ATTEND Family Medicine
DX: Z01.812 Encounter for preprocedural laboratory examination (principal)
CPT/HCPCS: 85610

== ENCOUNTER 2024-05-17 05:34 | Day surgery (SDC) | payer MEDICARE ==
--- NOTE | 2024-05-16 08:45 | P.HPOR ---
History of Present Illness H&P Date: 05/16/24 Chief Complaint: Right knee pain The patient is an 84-year-old male who presents with progressive right knee pain. He's had increasing pain over the past year and a half. He is having pain with any weightbearing activities. He is having significant night symptoms. He has tried medications along with injections without many significant relief. Review of Systems Per HPI Past Medical History Past Medical History: Coronary Artery Disease (CAD), COPD, GERD/Reflux, Hearing Disorder / Deafness, Hyperlipidemia, Hypertension, Musculoskeletal Disorder, Osteoarthritis (OA), Prostate Disorder Additional Past Medical History / Comment(s): doesn't wear Hearing aids, Back pain, pain in legs, NT in feet. Poss sleep apnea in history-denies any hx. of sleep apnea History of Any Multi-Drug Resistant Organisms: None Reported Past Surgical History: Heart Catheterization With Stent, Joint Replacement Additional Past Surgical History / Comment(s): Colonoscopy. urolift procedure, left knee replaced, PAIN CLINIC PROCEDURE, repair right hydrocele Past Anesthesia/Blood Transfusion Reactions: No Reported Reaction Date of Last Stent Placement:: 2009 Smoking Status: Former smoker - Past Family History Father Family Medical History: Cancer Mother Family Medical History: Cancer Daughter(s) Family Medical History: Deep Vein Thrombosis (DVT), Myocardial Infarction ([place]) Sister(s) Family Medical History: Cancer Brother(s) Family Medical History: Cancer Medications and Allergies Home Medications Medication Instructions Recorded Confirmed Type Aspirin [Adult Low Dose Aspirin EC] 81 mg PO QAM 03/09/18 05/15/24 History Tamsulosin [Flomax] 0.4 mg PO HS 03/09/18 05/15/24 History Omeprazole 20 mg PO HS 12/02/19 05/15/24 History Pregabalin 100 mg PO BID 12/02/19 05/15/24 History atenoloL [Tenormin] 50 mg PO BID 12/02/19 05/15/24 History HYDROcodone/APAP 5-325MG [[place] 1 tab PO TID PRN 09/29/21 05/15/24 History 5-325] Ascorbic Acid [Vitamin C] 1,000 mg PO QAM 09/12/22 05/15/24 History Cholecalciferol [Vitamin D3 (25 25 mcg PO QAM 09/12/22 05/15/24 History Mcg = 1000 Iu)] Mirabegron [Myrbetriq] 25 mg PO QAM 09/12/22 05/15/24 History [place]-3/Dha/Epa/Fish Oil [Fish Oil 1 each PO QAM 09/12/22 05/15/24 History 1,000 mg Softgel] Vitamin E (Dl,Tocopheryl Acet) 400 unit PO QAM 09/12/22 05/15/24 History [Vitamin E (400 Iu = 180 mg)] Losartan [Cozaar] 50 mg PO HS 09/16/22 05/15/24 History Albuterol Inhaler [Ventolin Hfa 90 mcg INHALATION Q4HR PRN 09/28/22 05/15/24 History Inhaler] Finasteride [Proscar] 5 mg PO QAM 09/28/22 05/15/24 History Atorvastatin [Lipitor] 20 mg PO DAILY 12/19/23 05/15/24 History Fluticasone/Umeclidin/Vilanter 1 inhalation INHALATION DAILY 12/19/23 05/15/24 History [Trelegy Ellipta 100-62.5-25] Allergies Allergy/AdvReac Type Severity Reaction Status Date / Time tramadol Allergy Rash/Hives Verified 05/15/24 13:49 Physical Examination - Knee right Appearance: effusion Effusion grade: grade 3 Varus alignment in stance: 10 degrees Tenderness with palpation: anterior, medial Gait: limping ROM: extension: -15 degrees ROM: flexion: 100 degrees Crepitus with motion: Yes Strength: extension: 5/5 Strength: flexion: 5/5 Meniscal tests: medial meniscal tests: positive, medial joint line pain: positive Results The patient is a well-developed well-nourished male approximately 5 foot 8, 210 pounds of endomorphic habitus. HEENT exam is nonfocal, neck is supple. He has painless passive motion of the right hip. Straight leg raise is negative. He's tender about the medial joint line of the right knee. Collaterals are stable, [place] was negative, Ashley's is equivocal. He has genu varum alignment. His distal neurovascular appears intact in the right lower extremity. - Diagnostic results Knee x-ray: image reviewed (X-rays of the right knee obtained in the office show severe medial compartment osteoarthrosis with [id number] changes along with subchondral sclerosis.) Assessment and Plan Assessment: Right knee severe medial compartment osteoarthrosis Plan: I talked with patient at length regarding his condition along with treatment options. He is having significant pain along with mechanical symptoms related to his right knee osteoporosis despite previous conservative measures. After a thorough discussion he opts to proceed with surgery. We'll plan to proceed with right total knee arthroplasty. Risks and benefits were discussed at length in layman's terms. We will institute DVT prophylaxis postoperatively.
[~2024-05-17 05:34] MED LIST changes: -ACETAMINOPHEN TAB 500 MG TAB PO PRN; -DEXAMETHASONE SOD PHOSPHATE 4 MG/ML 1 ML VIAL IV ONE; -HYDROmorphone 0.5 MG/0.5 ML SYRINGE IVP PRN; -LIDOCAINE 1% (10MG/ML) FOR IV START INTRADERMA PRN; -MELOXICAM 7.5 MG TAB PO PRN; -MIDAZOLAM 2 MG/2 ML VIAL IV PRN; -ONDANSETRON 4 MG/2 ML VIAL IVP ONE
[2024-05-17] MEDS: MELOXICAM 7.5 MG TAB PO PRN (06:42)
[2024-05-17] MEDS: ACETAMINOPHEN TAB 500 MG TAB PO PRN (06:42)
[2024-05-17] MEDS: ONDANSETRON 4 MG/2 ML VIAL IVP ONE (06:43)
[2024-05-17] MEDS: DEXAMETHASONE SOD PHOSPHATE 4 MG/ML 1 ML VIAL IV ONE (06:43)
[2024-05-17] MEDS: IV FLUID CONTINUATION 1,000 ML IV ONE (06:56)
[2024-05-17] MEDS: LACTATED RINGERS 1,000 ML IV SCH (06:56)
[2024-05-17] MEDS ORDERED: MIDAZOLAM 2 MG/2 ML VIAL IV PRN (07:00)
[2024-05-17] MEDS ORDERED: HYDROmorphone 0.5 MG/0.5 ML SYRINGE IVP PRN ×2 (07:00→09:48)
[2024-05-17] MEDS: MIDAZOLAM 2 MG/2 ML VIAL IVP ONE (07:10)
[2024-05-17] MEDS ORDERED: ROPIVACAINE 5 MG/ML 30 ML VIAL ONE (07:32)
[2024-05-17] MEDS ORDERED: SUCCINYLCHOLINE CHLORIDE 200 MG/10 ML VIAL IV ONE (07:32)
[2024-05-17] MEDS ORDERED: DEXAMETHASONE SOD PHOSPHATE 4 MG/ML 1 ML VIAL ONE (07:32)
[2024-05-17] MEDS ORDERED: LIDOCAINE 1% INJ 10MG/ML (20 ML MDV) ONE (07:32)
[2024-05-17] MEDS ORDERED: ePHEDrine 50 MG/ML 1 ML VIAL ONE (07:32)
[2024-05-17] MEDS ORDERED: PROPOFOL 10 MG/ML 20 ML VIAL IV ONE (07:32)
[2024-05-17] MEDS ORDERED: TRANEXAMIC 1,000 MG/100ML-NACL PREMIX BAG ONE (07:32)
[2024-05-17] MEDS ORDERED: GLYCOPYRROLATE 0.2 MG/ML 2 ML VIAL ONE (07:32)
[2024-05-17] MEDS ORDERED: fentaNYL (PF) 50 MCG/ML 2 ML AMP ONE (07:32)
--- NOTE | 2024-05-17 08:16 | P.ANPRN ---
Procedure Note - Anesthesia - Nerve Block Performed Right iPack Single Time Out Performed: Yes Date of Procedure: 05/17/24 Procedure Start Time: 07:10 Procedure Stop Time: 07:15 Location of Patient: PreOp Indication: Acute Post-Operative Pain, Analgesia, Requested by Surgeon Sedation Type: Sedate with meaningful contact maintained Preparation: Sterile Prep Position: Left Lateral Catheter: None Needle Types: Pajunk Needle Gauge: 21 Ultrasound used to visualize needle placement: Yes Ultrasound used to observe medication spread: Yes Injectate: 0.5% Ropivacaine (see comment for volume) ([id number]) Blood Aspirated: No Pain Paresthesia on Injection Noted: No Resistance on Injection: Normal Image Stored and Saved: Yes Events: Uneventful and Well Tolerated
--- NOTE | 2024-05-17 08:17 | P.ANPRN ---
Procedure Note - Anesthesia - Nerve Block Performed Right Adductor Canal Infusion Time Out Performed: Yes Date of Procedure: 05/17/24 Procedure Start Time: 07:15 Procedure Stop Time: 07:20 Location of Patient: PreOp Indication: Acute Post-Operative Pain, Analgesia, Requested by Surgeon Sedation Type: Sedate with meaningful contact maintained Preparation: Sterile Prep Position: Supine Catheter: Indwelling Needle Types: On-Q Ultrasound used to visualize needle placement: Yes Ultrasound used to observe medication spread: Yes Injectate: 0.5% Ropivacaine (see comment for volume) ([id number]) Blood Aspirated: No Pain Paresthesia on Injection Noted: No Resistance on Injection: Normal Image Stored and Saved: Yes Events: Uneventful and Well Tolerated
[2024-05-17] MEDS: ceFAZolin 1,000 MG in SODIUM CHLORIDE 0.9% 1,000 ML IRRIGATION ONE (08:24)
[2024-05-17] MEDS: LACTATED RINGERS 1,000 ML IV ONE (09:09)
[2024-05-17] MEDS ORDERED: HYDROcodone/APAP 5-325MG 1 EACH TAB PO PRN (09:48)
[2024-05-17] MEDS ORDERED: NALOXONE 0.4 MG/ML 1 ML VIAL IV PRN (09:48)
[2024-05-17] MEDS ORDERED: ONDANSETRON 4 MG/2 ML VIAL IVP PRN (09:48)
[2024-05-17] MEDS ORDERED: MAGNESIUM HYDROXIDE 2,400 MG/30 ML CUP PO PRN (09:48)
--- NOTE | 2024-05-17 09:51 | P.OP ---
Date of Procedure: 05/17/24 Preoperative Diagnosis: Right knee severe tricompartmental osteoarthrosis Postoperative Diagnosis: Same Procedure(s) Performed: Right total knee arthroplastycementedposterior stabilized Implants: DePuy attune size 6 cemented femoral component, size 6 cemented tibial component, 9 mm articular surface, 38 mm cemented patellar component. This is a posterior stabilized implant. [facility]: Santino Samuel [employer] #1: Qasim Freire Estimated Blood Loss (ml): 50 Pathology: none sent Condition: stable Disposition: PACU Indications for Procedure: The patient is an 84-year-old male who presents with progressive right knee pain secondary to osteoarthrosis despite conservative measures. A discussion of the risks and benefits of operative intervention versus continued conservative measures made with the patient. He opted to proceed with surgery. Operative risks include infection, neurovascular injury, development of blood clots, fracture, possible component loosening/failure and possible need for subsequent procedures was discussed. Informed consent was obtained. Operative Findings: As below Description of Procedure: The patient was brought to the operating room, and after induction of spinal anesthesia the right lower extremity was prepped and draped in a normal fashion. The tourniquet was inflated to 270 mm marker. A longitudinal incision extending 3 finger breaths above the superior pole of patella extending to the medial aspect the tibial tubercle was then made. The skin and subcutaneous tissues were divided sharply. Electrocautery was used for hemostasis. A medial parapatellar arthrotomy was performed. The medial soft tissues to include the superficial and deep portions of the medial collateral ligament were elevated cade bperiosteally. The patella was everted. A portion of the retropatellar fat pad was excised sharply. The anterior cruciate ligament was sacrificed. Blunt retractors were placed. A starting hole was made in the distal femur 1 cm anterior to the posterior cruciate ligament origin. An intramedullary femoral guide was then inserted planning on 5 valgus distal cut with 9 mm distal resection. The cutting block was pinned in place. The distal cut was then made. The posterior referencing sizing guide was utilized. I felt size 6 was most appropriate. 3 of external rotation was built into the system and verified off the trans-epicondylar axis and the posterior condyles. The cutting block was pinned in place. The anterior, posterior, and chamfer cuts then made. Bone fragments were removed. The intercondylar guide was placed and the notch cut was made with a sagittal saw. The bone block was removed in one fragment. The trial component was then placed. There is good anterior to posterior and medial to lateral fit. The distal peg holes were drilled. The trial component was removed. Attention was then paid towards preparing the proximal tibia. An extra medullary guide was utilized in line with the tibial shaft and second metatarsal distally. I planned on 2 mm resection from the medial compartment. The cutting block was pinned in place. The proximal tibial cut was then made. The bone was removed in one fragment. The remnants of the medial and lateral menisci were excised at the capsular junction with electrocautery. The tibia sized most appropriately at size 6. The trial femoral and tibial components were placed along with a 9 mm articular surface. I was able to obtain full flexion and extension with internal and external rotation. After several flexion and extension cycles, the tibial rotation was marked with electrocautery line with the medial one third of the tibial tubercle. Attention was then paid towards preparing the patella. A patella reamer was utilized taking stem to 14 mm of bone stock. A good flush cut was made. The patella sized most appropriately 38 mm. The peg holes were drilled. The trial components placed. I had good patellofemoral tracking with no hands technique. The trial components were then removed. The tibia was prepared in the appropriate rotation with appropriate drill and keel punch. The posterior osteophytes were removed with a curved osteotome. The flexion and extension gaps were checked and felt to be symmetric at 9 mm. A trial components were then removed. The bony surfaces were prepared with pulsatile lavage and dried. The tibial component was then cemented place was fully seated. Excess cement was removed. The femoral component cemented place and was fully seated. Excess cement was r emoved. The trial 9 mm articular surface was placed and the knee was put in full extension. The patella component was cemented place. After the cement had sufficiently hardened, the knee was again taken through a range of motion. Again I was able to obtain full flexion and extension with varus and valgus stress. The trial 9 mm articular surface was removed and the final one inserted. This was fully seated. Care was taken to avoid any soft tissue interposition. Pulsatile lavage was again utilized. The medial parapatellar arthrotomy was closed with #2 Ethibond suture. The tourniquet was deflated with approximately 60 minutes total tourniquet time. Final hemostasis was obtained with the cautery. There was minimal bleeding therefore a deep drain was not placed. The subcutaneous tissues were reapproximated with interrupted 2-0 Vicryl sutures. The skin was reapproximated with 3-0 subcuticular strata fix suture. Skin tape and adhesive was applied. A sterile dressing was applied. The patient was awoken from sedation and transferred to recovery room in good condition. Blood loss was estimated at 50 mL. No complications were incurred. Sponge and needle counts were correct at the end of the case. Qasim NELSON assisted during the major components of this case to include exposure, bone resection, implantation, and closure.
[2024-05-17] MEDS: ROPIVACAINE 1,100 MG, SODIUM CHLORIDE 0.9% 500 ML 330 ML, EMPTY PAIN BALL 1 EACH MISCELLANE PRN (10:09)
--- NOTE | 2024-05-17 11:08 | XR ---
EXAMINATION TYPE: XR knee limited RT DATE OF EXAM: 05/17/2024 10:45 AM COMPARISON: None CLINICAL INDICATION: Male, 84 years old with history of Evaluation for Postop abnormality and alignme nt; PHH, pain TECHNIQUE: XR knee limited RT 2 views submitted. FINDINGS: Status post total knee arthroplasty changes with hardware in appropriate alignment and in tact. No evidence of fracture. Subcutaneous lucencies and lucencies within the joint consistent with surgical changes. IMPRESSION: Status post total knee arthroplasty changes with hardware intact and appropriate alignment. No fractu res identified. [facility], , 05/17/2024 11:05 AM
[2024-05-17] MEDS: HYDROcodone/APAP 7.5-325MG 1 EACH TAB PO PRN (15:21)
[2024-05-17] MEDS: hydrOXYzine pamoate 25 MG CAP PO PRN (22:46)
[2024-05-17] MEDS: SENNOSIDES-DOCUSATE SODIUM 1 EACH TAB PO SCH (22:46)
[2024-05-18] MEDS: HYDROmorphone 0.5 MG/0.5 ML SYRINGE IVP PRN (02:09)
[2024-05-18] MEDS ORDERED: ALBUTEROL NEBULIZED 2.5 MG/3 ML INHALATION PRN (08:57)
[2024-05-18] MEDS: ATORVASTATIN 20 MG TAB PO SCH (09:24)
[2024-05-18] MEDS: CHOLECALCIFEROL 25 MCG (1000 IU) TABLET PO SCH (09:24)
[2024-05-18] MEDS: FINASTERIDE 5 MG TAB PO SCH (09:24)
[2024-05-18] MEDS: atenoloL 50 MG TAB PO SCH (09:24)
[2024-05-18] MEDS: RIVAROXABAN 10 MG TAB PO SCH (09:24)
[2024-05-18] MEDS: NON FORMULARY DRUG (Mirabegron [Myrbetriq] 25 MG Tab.Er.24h) PO SCH (09:27)
--- NOTE | 2024-05-18 09:45 | P.DS ---
Providers Date of admission: 05/17/2024 Expected date of discharge: 05/18/24 Attending physician: Santino Samuel Consults: 05/17/24 09:50 Consult Physician Routine Consulting Provider: Ryan Pizano Reason/Comments: Medical Management s/p right total knee arthroplasty Do you want consulting provider notified?: Yes Primary care physician: Ryan Pizano Hospital Course: Date of admission: 05/17/2024 Date of discharge: 05/18/2024 Admission diagnosis: Right knee osteoarthritis Discharge diagnosis: same Attending physician: Dr. Samuel Surgical procedures: Right total knee arthroplasty Brief history: Patient is a 84-year-old male with a history of progressive primary right knee osteoarthritis. At this point patient has failed conservative treatment measures and has opted to proceed with a elective right total knee arthroplasty. Hospital course: Details of patient's surgery can be found in operative report. Patient tolerated the procedure well and was subsequently transported to orthopedic floor. Patient's orthopeidc and medical care was provided daily. Patient had daily laboratory tests performed for evaluation of overall blood counts. Patient had daily physical therapy to include strengthening range of motion as well as education with walker ambulation. Patient was treated with Xarelto for their postoperative DVT prophylaxis during their inpatient stay. Patient was noted to have a relatively uneventful postoperative course. Patient reported satisfactory pain control with oral pain medications by postoperative day 1. Patient showed satisfactory progress with physical therapy. Patient moved steadily through the program and had no difficulty meeting the goals by postoperative day 1. Given patient's otherwise satisfactory course and having met physical therapy goals, plan is to discharge patient home with health services on postoperative day 1. Discharge condition/disposition: Patient will be discharged home with health services in stable condition. Discharge medications: Instructions are given on resumption of patient's normal daily medications per primary care recommendation, in addition patient will be prescribed Wallace; senna; resume aspirin 80 mg twice a day 30 days. Discharge instructions: 1. Wound care and infection precautions, keep incision dry and covered while showering, no lotions, creams, moisturizers. No soaking, tubs, pools, hottubs. Do not scrub over the incision. 2. Weight-bear as tolerated with walker / cane until follow-up. 3. Ice and elevate when necessary. Do not exceed 20 minutes per hour with ice pack. 4. Utilize compression sleeve until seen at first follow up appointment. 5. Visiting nursing care. 6. Home physical therapy including home CPM. 7. Pain meds and anticoagulants per prescription. 8. Pain medication has potential to cause constipation. Increase oral fluid and fiber intake. Contact primary care provider if you have not had a bowel movement within 48 hours after discharge 9. No anti-inflammatory medication until discussed at first post operative visit, this including Motrin, Aleve, Mobic, Diclofenac. 10. Follow up in office at 2 weeks postop with Joaquim Granados PA-C / Qasim Freire PA-C 11. Follow up with your primary care doctor 7-10 days after discharge. 12. Contact [facility] with any questions, . Assessment: Right knee osteoarthritis Procedures: Right total knee arthroplasty Patient Condition at Discharge: Good Plan - Discharge Summary Discharge Rx Participant: No New Discharge Prescriptions: New HYDROcodone/APAP 7.5-325MG [Wallace 7.5-325] 1 - 2 tab PO Q6HR PRN #36 tab PRN Reason: Pain Sennosides/Docusate Sodium [Senna Plus 8.6-50 mg Softgel] 1 each PO DAILY #20 capsule No Action Tamsulosin [Flomax] 0.4 mg PO HS Aspirin [Adult Low Dose Aspirin EC] 81 mg PO QAM Omeprazole 20 mg PO HS atenoloL [Tenormin] 50 mg PO BID Pregabalin 100 mg PO BID Ascorbic Acid [Vitamin C] 1,000 mg PO QAM Finasteride [Proscar] 5 mg PO QAM Atorvastatin [Lipitor] 20 mg PO DAILY HYDROcodone/APAP 5-325MG [Wallace 5-325] 1 tab PO TID PRN PRN Reason: Pain Vitamin E (Dl,Tocopheryl Acet) [Vitamin E (400 Iu = 180 mg)] 400 unit PO QAM Cholecalciferol [Vitamin D3 (25 Mcg = 1000 Iu)] 25 mcg PO QAM Aurora-3/Dha/Epa/Fish Oil [Fish Oil 1,000 mg Softgel] 1 each PO QAM Mirabegron [Myrbetriq] 25 mg PO QAM Losartan [Cozaar] 50 mg PO HS Albuterol Inhaler [Ventolin Hfa Inhaler] 90 mcg INHALATION Q4HR PRN PRN Reason: Shortness Of Breath Fluticasone/Umeclidin/Vilanter [Trelegy Ellipta 100-62.5-25] 1 inhalation INHALATION DAILY Discharge Medication List Aspirin [Adult Low Dose Aspirin EC] 81 mg PO BID 03/09/18 [History] Tamsulosin [Flomax] 0.4 mg PO HS 03/09/18 [History] Omeprazole 20 mg PO HS 12/02/19 [History] Pregabalin 100 mg PO BID 12/02/19 [History] atenoloL [Tenormin] 50 mg PO BID 12/02/19 [History] HYDROcodone/APAP 5-325MG [Wallace 5-325] 1 tab PO TID PRN 09/29/21 [History] Ascorbic Acid [Vitamin C] 1,000 mg PO QAM 09/12/22 [History] Cholecalciferol [Vitamin D3 (25 Mcg = 1000 Iu)] 25 mcg PO QAM 09/12/22 [History] Mirabegron [Myrbetriq] 25 mg PO QAM 09/12/22 [History] Aurora-3/Dha/Epa/Fish Oil [Fish Oil 1,000 mg Softgel] 1 each PO QAM 09/12/22 [History] Vitamin E (Dl,Tocopheryl Acet) [Vitamin E (400 Iu = 180 mg)] 400 unit PO QAM 09/12/22 [History] Losartan [Cozaar] 50 mg PO HS 09/16/22 [History] Albuterol Inhaler [Ventolin Hfa Inhaler] 90 mcg INHALATION Q4HR PRN 09/28/22 [History] Finasteride [Proscar] 5 mg PO QAM 09/28/22 [History] Atorvastatin [Lipitor] 20 mg PO DAILY 12/19/23 [History] Fluticasone/Umeclidin/Vilanter [Trelegy Ellipta 100-62.5-25] 1 inhalation INHALATION DAILY 12/19/23 [History] HYDROcodone/APAP 7.5-325MG [Wallace 7.5-325] 1 - 2 tab PO Q6HR PRN #36 tab 05/18/24 [Rx] Sennosides/Docusate Sodium [Senna Plus 8.6-50 mg Softgel] 1 each PO DAILY #20 capsule 05/18/24 [Rx] Follow up Appointment(s)/Referral(s): Qasim Freire, PAC [PHYSICIAN NATURAL SCIENCE CURATOR] - 2 Weeks [facility],Equipment [NON-STAFF] - As Needed (*Call [facility] once home to arrange delivery of the Continuous Passive Motion (CPM) machine. ) Patient Instructions/Handouts: Knee Replacement (GEN) Activity/Diet/Wound Care/Special Instructions: Orthopedic Discharge Instructions: 1. Wound care and infection precautions, keep incision dry and covered while showering, no lotions, creams, moisturizers. No soaking, pools, hot tubs. Do not scrub over incision. 2. Weight-bear as tolerated with walker / cane until follow-up. 3. Ice and elevate when necessary. Do not exceed 20 minutes per hour with ice pack. 4. Utilize compression sleeve until seen at first follow up appointment. 5. Pain meds and anticoagulants per prescription. 6. Pain medication has potential to cause constipation. Increase oral fluid and fiber intake. Contact primary care provider if you have not had a bowel movement within 48 hours after discharge. 7. No anti-inflammatory medication until discussed at first post operative visit, this including Motrin, Aleve, Mobic, Diclofenac. 8. Follow up in office at 2 weeks postop with Joaquim Granados PA-C / Qasim Freire PA-C 9. Follow up with your primary care doctor 7-10 days after discharge. 10. Contact [facility] with any questions, . Keep incision clean, dry, intact. While showering, cover fusion tape with Saran wrap. Keep fusion tape on until follow-up appointment office in 2 weeks.
--- NOTE | 2024-05-18 09:48 | P.PN ---
Subjective Progress Note Date: 05/18/24 Principal diagnosis: Right knee osteoarthritis Patient was seen at bedside this morning lying in semirecumbent position on 4 S. Patient says he has been up walking a few times since surgery yesterday and is only using a walker to aid. Patient says pain is well-controlled oral m edication. He says he is looking forward to working with therapy later this morning and as long as everything goes well as looking forward to going home potentially later today. Patient says he has not had bowel movement yet, however, patient states he isn't passing gas. Patient denies any other orthopedic complaints at this time. Objective - Vital Signs Vital signs: Vital Signs Temp 98.6 F 05/18/24 06:53 Pulse 73 05/18/24 06:53 Resp 18 05/18/24 06:53 BP 111/57 05/18/24 06:53 Pulse Ox 91 L 05/18/24 06:53 FiO2 Intake & Output 05/17/24 05/18/24 05/18/24 18:59 06:59 18:59 Intake Total 1351 Output Total 50 Balance 1301 Weight 99.1 kg Intake: IV 1351 Output: Estimated Blood Loss 50 Other: # Voids 1 - Exam Right knee: Incision is clean, dry, and intact. The exofin fusion tape is in good conditi on. There is minimal soft tissue swelling and ecchymosis surrounding the medial and lateral aspects of the incision. Calf is soft, no tenderness with palpation. Plantar flexion, dorsiflexion, EHL, FHL are intact. Sensory exam to light touch throughout the extremity is intact, dorsal pedis pulses 2+. Assessment and Plan Assessment: 1. Right knee osteoarthritis - Postoperative day 1 status post right total knee arthroplasty Plan: 1. Right knee osteoarthritis - right total knee arthroplasty performed yesterday, 05/17/2024. Patient stable at bedside this morning. Pain medication as needed. Weightbearing as tolerated with walker and assistance as needed. Pending approval from PT/OT, plan for discharge home today with ulcers. 2. Appreciate medical management 3. Pain management - [place] 4. GI prophylaxis - senna 5. DVT prophylaxis - Xarelto in hospital. To take aspirin 81 mg twice a day once home for 30 days 6. PT/OT - weightbearing as tolerated with walker 7. Encourage incentive spirometer use 8. Discharge planning - home today with health services Time with Patient: Less than 30
[2024-05-18 09:53] LABS: African American GFR (CKD) >90 (>60 ml/min/1.73 sqM); Anion Gap 3 mmol/L; Blood Urea Nitrogen 15 mg/dL (9-20); Calcium 9.3 mg/dL (8.4-10.2); Carbon Dioxide 28 mmol/L (22-30); Chloride 104 mmol/L (98-107); Glucose 149 mg/dL (74-99); Non-African American GFR(CKD) 79 (>60 ml/min/1.73 sqM); Potassium 3.8 mmol/L (3.5-5.1); Sodium 135 mmol/L (137-145)
[2024-05-18 10:00] LABS: Basophils # (A) 0.02 X 10*3/uL (0.00-0.10); Basophils % (A) 0.2 %; Eosinophils # (A) 0.01 X 10*3/uL (0.04-0.35); Eosinophils % (A) 0.1 %; HCT 34.3 % (39.6-50.0); HGB 11.3 g/dL (13.0-17.0); Lymphocytes # (A) 1.28 X 10*3/uL (0.90-5.00); Lymphocytes % (A) 10.4 %; MCH 28.8 pg (27.0-32.0); MCHC 32.9 g/dL (32.0-37.0); MCV 87.5 FL (80.0-97.0); Mean Platelet Volume 12.7 FL (9.5-12.2); Monocytes # (A) 1.23 X 10*3/uL (0.20-1.00); NRBC Per 100 WBC 0 X 10*3/uL (0.00-0.01); Neutrophils % (A) 78.9 %; Platelet Count 109 X 10*3/uL (140-440); RBC 3.92 X 10*6/uL (4.40-5.60); RDW 13.1 % (11.5-14.5); WBC 12.29 X 10*3/uL (4.50-10.00)
--- NOTE | 2024-05-18 11:09 | P.PN ---
Progress Note - Text Adequate analgesia. No complication from anesthesia.
[2024-05-18] MEDS: VITAMIN E (DL,TOCOPHERYL ACET) 400 UNIT (180 MG) CAP PO SCH (11:14)
--- NOTE | 2024-05-18 14:02 | P.CONS ---
History of Present Illness - Reason for Consult Consult date: 05/18/24 - Chief Complaint Right total knee arthroplasty - History of Present Illness History of present illness; Patient is an 84-year-old man with CAD, COPD, GERD, hearing loss, hyperlipidemia, hypertension, osteoarthritis who presents for elective right total knee arthroplasty. He has had significant pain with mechanical symptoms related to his right knee osteoporosis that have progressively worsened despite previous conservative measures. Patient then followed up with Ortho surgery outpatient and had planned surgery yesterday. Patient is now postop with no known surgical complications. Patient is sitting up in chair resting with no complaints of moderate pain at surgical site. Patient reports absence of fever, chills, chest pain, palpitations, dyspnea. Internal medicine was consulted for medical management. Initial lab workup revealed WBC 12.2, hemoglobin 11.3, sodium 135, potassium 3.8 , bicarb 28, BUN 15, creatinine 0.86, glucose 149. Knee x-ray independently interpreted as status post total right knee replacement with no fractures noted. REVIEW OF SYSTEMS: All systems reviewed, pertinent positives and negatives noted in HPI. All other symptoms are negative. PHYSICAL EXAMINATION: Vitals reviewed GENERAL: No acute distress. Well developed, well nourished. Obese. HEENT: Pupils are round and equally reacting to light. EOMI. No scleral icterus. Normocephalic, atraumatic. CARDIOVASCULAR: S1 and S2 present. No murmurs, rubs, or gallops. PULMONARY: Chest is clear to auscultation, no wheezing, rhonchi, or crackles. ABDOMEN: Soft, nontender, nondistended, normoactive bowel sounds. No palpable organomegaly. MUSCULOSKELETAL: No apparent joint swelling and deformities. EXTREMITIES: No apparent cyanosis, clubbing, or pedal edema. NEUROLOGICAL: The patient is alert and oriented x3, Gross neurological examination did not reveal any focal deficits. SKIN: No apparent rashes. Assessment and plan Patient is an 84-year-old man with CAD, COPD, GERD, hearing loss, hype rlipidemia, hypertension, osteoarthritis who presents for elective right total knee arthroplasty. #Essential hypertension -Hold home Losartan 20 mg #Uncontrolled Hyperglycemia #Coronary artery disease - Resume home Statin - Resume home atenolol #BPH - Resume home medication #right total knee arthroplasty -Pain management and DVT prophylaxis per primary surgical team F: IV LR 20 mL/hr E: Replete as needed N: Heart healthy diet DVT ppx: per primary surgical team Code status: Full code Patient is stable from medical stand point Dictation was produced using [employer] dictation software. Please excuse any grammatical, word or spelling errors. Past Medical History Past Medical History: Coronary Artery Disease (CAD), COPD, GERD/Reflux, Hearing Disorder / Deafness, Hyperlipidemia, Hypertension, Musculoskeletal Disorder, Osteoarthritis (OA), Prostate Disorder Additional Past Medical History / Comment(s): doesn't wear Hearing aids, Back pain, pain in legs, NT in feet. Poss sleep apnea in history-denies any hx. of sleep apnea History of Any Multi-Drug Resistant Organisms: None Reported Past Surgical History: Heart Catheterization With Stent, Joint Replacement Additional Past Surgical History / Comment(s): Colonoscopy. urolift procedure, left knee replaced, PAIN CLINIC PROCEDURE, repair right hydrocele Past Anesthesia/Blood Transfusion Reactions: No Reported Reaction Date of Last Stent Placement:: 2009 Past Psychological History: No Psychological Hx Reported Smoking Status: Former smoker Past Alcohol Use History: None Reported Additional Past Alcohol Use History / Comment(s): SMOKING AT AGE 19, QUIT AT AGE 24, SMOKED A CIGAR A DAY Past Drug Use History: None Reported Additional Drug Use History / Comment(s): EDIBLE GUMMIES FOR PAIN AT NIGHT - Past Family History Father Family Medical History: Cancer Mother Family Medical History: Cancer Daughter(s) Family Medical History: Deep Vein Thrombosis (DVT), Myocardial Infarction (IA) Sister(s) Family Medical History: Cancer Additional Family Medical History / Comment(s): Colon cancer. Brother(s) Family Medical History: Cancer Medications and Allergies Home Medications Medication Instructions Recorded Confirmed Type Aspirin [Adult Low Dose Aspirin EC] 81 mg PO BID 03/09/18 05/18/24 History Tamsulosin [Flomax] 0.4 mg PO HS 03/09/18 05/15/24 History Omeprazole 20 mg PO HS 12/02/19 05/15/24 History Pregabalin 100 mg PO BID 12/02/19 05/15/24 History atenoloL [Tenormin] 50 mg PO BID 12/02/19 05/15/24 History HYDROcodone/APAP 5-325MG [[place] 1 tab PO TID PRN 09/29/21 05/15/24 History 5-325] Ascorbic Acid [Vitamin C] 1,000 mg PO QAM 09/12/22 05/15/24 History Cholecalciferol [Vitamin D3 (25 25 mcg PO QAM 09/12/22 05/15/24 History Mcg = 1000 Iu)] Mirabegron [Myrbetriq] 25 mg PO QAM 09/12/22 05/15/24 History [place]-3/Dha/Epa/Fish Oil [Fish Oil 1 each PO QAM 09/12/22 05/15/24 History 1,000 mg Softgel] Vitamin E (Dl,Tocopheryl Acet) 400 unit PO QAM 09/12/22 05/15/24 History [Vitamin E (400 Iu = 180 mg)] Losartan [Cozaar] 50 mg PO HS 09/16/22 05/15/24 History Albuterol Inhaler [Ventolin Hfa 90 mcg INHALATION Q4HR PRN 09/28/22 05/15/24 History Inhaler] Finasteride [Proscar] 5 mg PO QAM 09/28/22 05/15/24 History Atorvastatin [Lipitor] 20 mg PO DAILY 12/19/23 05/15/24 History Fluticasone/Umeclidin/Vilanter 1 inhalation INHALATION DAILY 12/19/23 05/15/24 History [Trelegy Ellipta 100-62.5-25] HYDROcodone/APAP 7.5-325MG [[place] 1 - 2 tab PO Q6HR PRN #36 tab 05/18/24 Rx 7.5-325] Sennosides/Docusate Sodium [Senna 1 each PO DAILY #20 capsule 05/18/24 Rx Plus 8.6-50 mg Softgel] Allergies Allergy/AdvReac Type Severity Reaction Status Date / Time tramadol Allergy Rash/Hives Verified 05/17/24 06:10 Physical Exam Vitals: Vital Signs Temp Pulse Resp BP Pulse Ox 05/18/24 06:53 98.6 F 73 18 111/57 91 L 05/18/24 02:00 98.3 F 92 15 128/62 92 L 05/17/24 20:00 97.7 F 71 17 119/65 93 L 05/17/24 14:30 62 16 136/76 96 Intake and Output 05/17/24 05/18/24 05/18/24 22:59 06:59 14:59 Other: # Voids 1 Weight 99.1 kg Results CBC & Chem 7: 05/18/24 04:17 05/18/24 09:19 Labs: Abnormal Lab Results - Last 24 Hours (Table) 05/18/24 05/18/24 Range/Units 04:17 09:19 WBC 12.29 H (4.50-10.00) X 10*3/uL RBC 3.92 L (4.40-5.60) X 10*6/uL Hgb 11.3 L (13.0-17.0) g/dL Hct 34.3 L (39.6-50.0) % Plt Count 109 L (140-440) X 10*3/uL MPV 12.7 H (9.5-12.2) FL Immature Gran # 0.05 H (0.00-0.04) X 10*3/uL Neutrophils # 9.70 H (1.80-7.70) X 10*3/uL Monocytes # 1.23 H (0.20-1.00) X 10*3/uL Eosinophils # 0.01 L (0.04-0.35) X 10*3/uL Sodium 135 L (137-145) mmol/L Glucose 149 H (74-99) mg/dL
[2024-05-18] MEDS ORDERED: LOSARTAN 50 MG TAB PO SCH (21:00)
[2024-05-18] MEDS: TAMSULOSIN 0.4 MG CAP.ER.24H PO SCH (22:04)
--- NOTE | 2024-05-19 09:55 | P.PN ---
Subjective Progress Note Date: 05/19/24 Principal diagnosis: Right knee osteoarthritis Patient was seen at bedside this morning lying in semirecumbent position on 4 S. Patient says he has been up walking a few times since surgery yesterday and is only using a walker to aid. Patient says he did work with physical therapy yesterday and did have a difficult time ambulating around the room. Patient says he did discuss with clinical social work aide potentially going to rehab once discharged from the hospital. Patient says pain is well-controlled oral medication. Patient says he has not had bowel movement yet, however, patient states he isn't passing gas. Patient denies any other orthopedic complaints at this time. Objective - Vital Signs Vital signs: Vital Signs Temp 99.3 F 05/19/24 07:05 Pulse 76 05/19/24 07:05 Resp 20 05/19/24 07:05 BP 143/71 05/19/24 07:05 Pulse Ox 93 L 05/19/24 07:05 FiO2 Intake & Output 05/18/24 05/19/24 05/19/24 18:59 06:59 18:59 Output Total 800 Balance -800 Output: Urine 800 Other: # Voids 2 - Exam Right knee: Incision is clean, dry, and intact. The exofin fusion tape is in good condition. There is minimal soft tissue swelling and ecchymosis surrounding the medial and lateral aspects of the incision. Calf is soft, no tenderness with palpation. Plantar flexion, dorsiflexion, EHL, FHL are intact. Sensory exam to light touch throughout the extremity is intact, dorsal pedis pulses 2+. - Labs CBC & Chem 7: 05/18/24 04:17 05/18/24 09:19 Labs: Abnormal Lab Results - Last 24 Hours (Table) 05/18/24 05/18/24 Range/Units 04:17 09:19 WBC 12.29 H (4.50-10.00) X 10*3/uL RBC 3.92 L (4.40-5.60) X 10*6/uL Hgb 11.3 L (13.0-17.0) g/dL Hct 34.3 L (39.6-50.0) % Plt Count 109 L (140-440) X 10*3/uL MPV 12.7 H (9.5-12.2) FL Immature Gran # 0.05 H (0.00-0.04) X 10*3/uL Neutrophils # 9.70 H (1.80-7.70) X 10*3/uL Monocytes # 1.23 H (0.20-1.00) X 10*3/uL Eosinophils # 0.01 L (0.04-0.35) X 10*3/uL Sodium 135 L (137-145) mmol/L Glucose 149 H (74-99) mg/dL Assessment and Plan Assessment: 1. Right knee osteoarthritis - Postoperative day 2 status post right total knee arthroplasty Plan: 1. Right knee osteoarthritis - right total knee arthroplasty performed 05/17/2024. Patient stable at bedside this morning. Pain medication as needed. Weightbearing as tolerated with walker and assistance as needed. Patient did have a difficult time ambulating yesterday with therapy. Case management working on rehab placement. Likely plan for discharge to rehab tomorrow. 2. Appreciate medical management 3. Pain management - [place] 4. GI prophylaxis - senna 5. DVT prophylaxis - Xarelto in hospital. To take aspirin 81 mg twice a day for 30 days once discharged from hospital 6. PT/OT - weightbearing as tolerated with walker 7. Encourage incentive spirometer use 8. Discharge planning -plan for discharge to rehab tomorrow Time with Patient: Less than 30
--- NOTE | 2024-05-19 12:58 | P.PN ---
Subjective Progress Note Date: 05/19/24 History of present illness; Patient is an 84-year-old man with CAD, COPD, GERD, hearing loss, hyperlipidemi a, hypertension, osteoarthritis who presents for elective right total knee arthroplasty. He has had significant pain with mechanical symptoms related to his right knee osteoporosis that have progressively worsened despite previous conservative measures. Patient then followed up with Ortho surgery outpatient and had planned surgery yesterday. Patient is now postop with no known surgical complications. Patient is sitting up in chair resting with no complaints of moderate pain at surgical site. Patient reports absence of fever, chills, chest pain, palpitations, dyspnea. Internal medicine was consulted for medical management. Initial lab workup revealed WBC 12.2, hemoglobin 11.3, sodium 135, potassium 3.8, bicarb 28, BUN 15, creatinine 0.86, glucose 149. Knee x-ray independently interpreted as status post total right knee replacement with no fractures noted. 05/19/2024 Patient seen for medical floor he is postoperative day #2 right total knee arthroplasty. He has no acute complications and no acute complaints overnight. He is saturating 95% on room air. Patient was eval by physical therapy and recommendations for subacute rehab he is currently pending approval for discharge to [facility] which will likely happen tomorrow. Review of Systems Constitutional: Denied any fatigue denied any fever. Cardio vascular: denied any chest pain, palpitations Gastrointestinal: denied any nausea, vomiting, diarrhea Pulmonary: Denied any shortness of breath cough Neurologic denied any new focal deficits All inpatient medications were reviewed and appropriate changes in these medications as dictated in the interval history and assessment and plan. PHYSICAL EXAMINATION: Vitals reviewed GENERAL: No acute distress. Well developed, well nourished. Obese. HEENT: Pupils are round and equally reacting to light. EOMI. No scleral icterus. Normocephalic, atraumatic. CARDIOVASCULAR: S1 and S2 present. No murmurs, rubs, or gallops. PULMONARY: Chest is clear to auscultation, no wheezing, rhonchi, or crackles. ABDOMEN: Soft, nontender, nondistended, normoactive bowel sounds. No palpable organomegaly. MUSCULOSKELETAL: No apparent joint swelling and deformities. EXTREMITIES: No apparent cyanosis, clubbing, or pedal edema. NEUROLOGICAL: The patient is alert and oriented x3, Gross neurological examination did not reveal any focal deficits. SKIN: No apparent rashes. Assessment and plan Patient is an 84-year-old man with CAD, COPD, GERD, hearing loss, hyperlipidemia, hypertension, osteoarthritis who presents for elective right total knee arthroplasty. #Essential hypertension Blood pressure becoming elevated and can resume the losartan to start this evenin #Coronary artery disease - Resume home Statin - Resume home atenolol #BPH Patient has been resumed on flomax Urinating without difficulty post surgical. #right total knee arthroplasty -Pain management and DVT prophylaxis per primary surgical team F: IV LR 20 mL/hr E: Replete as needed N: Heart healthy diet DVT ppx: per primary surgical team Code status: Full code Patient is stable from medical stand point. Pending social work coordination for discharge to subacute rehab at [facility]. Need to ice the knee as needed. Encourage incentive spirometer 10 times an hour while awake. Dictation was produced using [employer] dictation software. Please excuse any grammatical, word or spelling errors. The impression and plan of care has been dictated by Maribel Rivers, Nurse Practitioner as directed. Dr. Laine MD I have performed a history and physical examination and medical decision making of this patient, discussed the same with the dictator, and agree with the dictators assessment and plan as written, documented as a scribe. Based on total visit time, I have performed more than 50% of this visit. Objective - Vital Signs Vital signs: Vital Signs Temp 99.3 F 05/19/24 07:05 Pulse 76 05/19/24 07:05 Resp 20 05/19/24 07:05 BP 143/71 05/19/24 07:05 Pulse Ox 93 L 05/19/24 07:05 FiO2 Intake & Output 05/18/24 05/19/24 05/19/24 18:59 06:59 18:59 Output Total 800 Balance -800 Output: Urine 800 Other: # Voids 2 - Labs CBC & Chem 7: 05/18/24 04:17 05/18/24 09:19 Assessment and Plan Time with Patient: Less than 30
[2024-05-19] MEDS: LOSARTAN 50 MG TAB PO SCH (20:11)
[2024-05-19] MEDS: SYMBICORT 80-4.5 MCG INHALER INHALATION SCH (20:17)
--- NOTE | 2024-05-20 07:58 | P.DS ---
Providers Date of admission: 05/17/2024 Expected date of discharge: 05/20/24 Attending physician: Santino Samuel Consults: 05/17/24 09:50 Consult Physician Routine Consulting Provider: Ryan Pizano Reason/Comments: Medical Management s/p right total knee arthroplasty Do you want consulting provider notified?: Yes Primary care physician: Ryan Pizano Hospital Course: Date of admission: 05/17/2024 Date of discharge: 05/20/2024 Admission diagnosis: Right knee osteoarthritis Discharge diagnosis: Same Attending physician: Dr. Samuel Surgical procedures: Right total knee arthroplasty Brief history: Patient is a 84-year-old male with a history of progressive primary right knee osteoarthritis. At this point patient has failed conservative treatment measures and has opted to proceed with a elective right total knee arthroplasty. Hospital course: Details of patient's surgery can be found in operative report. Patient tolerated the procedure well and was subsequently transported to orthopedic floor. Patient's orthopeidc and medical care was provided daily. Patient had daily laboratory tests performed for evaluation of overall blood counts. Patient had daily physical therapy to include strengthening range of motion as well as education with walker ambulation. Patient was treated with Xarelto for their postoperative DVT prophylaxis during their inpatient stay. Patient was noted to have a relatively uneventful postoperative course. Patient reported satisfactory pain control with oral pain medications by postoperative day 3. Patient showed satisfactory progress with physical therapy. Patient moved steadily through the program and had no difficulty meeting the goals by postoperative day 3. Given patient's otherwise satisfactory course and having met physical therapy goals, plan is to discharge patient to rehab on postoperative day 3. Discharge condition/disposition: Patient will be discharged to rehab in stable condition. Discharge medications: Instructions are given on resumption of patient's normal daily medications per primary care recommendation, in addition patient will be prescribed [place]; senna; take aspirin 81 mg twice daily x 30 days. Discharge instructions: 1. Wound care and infection precautions, keep incision dry and covered while showering, no lotions, creams, moisturizers. No soaking, tubs, pools, hottubs. Do not scrub over the incision. 2. Weight-bear as tolerated with walker / cane until follow-up. 3. Ice and elevate when necessary. Do not exceed 20 minutes per hour with ice pack. 4. Utilize compression sleeve until seen at first follow up appointment. 5. Nursing care. 6. Physical therapy including home CPM. 7. Pain meds and anticoagulants per prescription. 8. Pain medication has potential to cause constipation. Increase oral fluid and fiber intake. Contact primary care provider if you have not had a bowel movement within 48 hours after discharge 9. No anti-inflammatory medication until discussed at first post operative visit, this including Motrin, Aleve, Mobic, Diclofenac. 10. Follow up in office at 2 weeks postop with Joaquim Granados PA-C / Qasim Freire PA-C 11. Follow up with your primary care doctor 7-10 days after discharge. 12. Contact [facility] with any questions, . Assessment: Right knee osteoarthritis Procedures: Right total knee arthroplasty Patient Condition at Discharge: Good Plan - Discharge Summary Discharge Rx Participant: No New Discharge Prescriptions: New HYDROcodone/APAP 7.5-325MG [[place] 7.5-325] 1 tab PO Q6HR PRN #24 tab PRN Reason: Pain Sennosides/Docusate Sodium [Senna Plus 8.6-50 mg Softgel] 1 each PO DAILY #20 capsule Continue Aspirin [Adult Low Dose Aspirin EC] 81 mg PO BID No Action Tamsulosin [Flomax] 0.4 mg PO HS Omeprazole 20 mg PO HS atenoloL [Tenormin] 50 mg PO BID Pregabalin 100 mg PO BID Ascorbic Acid [Vitamin C] 1,000 mg PO QAM Finasteride [Proscar] 5 mg PO QAM Atorvastatin [Lipitor] 20 mg PO DAILY HYDROcodone/APAP 5-325MG [[place] 5-325] 1 tab PO TID PRN PRN Reason: Pain Vitamin E (Dl,Tocopheryl Acet) [Vitamin E (400 Iu = 180 mg)] 400 unit PO QAM Cholecalciferol [Vitamin D3 (25 Mcg = 1000 Iu)] 25 mcg PO QAM [place]-3/Dha/Epa/Fish Oil [Fish Oil 1,000 mg Softgel] 1 each PO QAM Mirabegron [Myrbetriq] 25 mg PO QAM Losartan [Cozaar] 50 mg PO HS Albuterol Inhaler [Ventolin Hfa Inhaler] 90 mcg INHALATION Q4HR PRN PRN Reason: Shortness Of Breath Fluticasone/Umeclidin/Vilanter [Trelegy Ellipta 100-62.5-25] 1 inhalation INHALATION DAILY Discharge Medication List Aspirin [Adult Low Dose Aspirin EC] 81 mg PO BID 03/09/18 [History] Tamsulosin [Flomax] 0.4 mg PO HS 03/09/18 [History] Omeprazole 20 mg PO HS 12/02/19 [History] Pregabalin 100 mg PO BID 12/02/19 [History] atenoloL [Tenormin] 50 mg PO BID 12/02/19 [History] HYDROcodone/APAP 5-325MG [[place] 5-325] 1 tab PO TID PRN 09/29/21 [History] Ascorbic Acid [Vitamin C] 1,000 mg PO QAM 09/12/22 [History] Cholecalciferol [Vitamin D3 (25 Mcg = 1000 Iu)] 25 mcg PO QAM 09/12/22 [History] Mirabegron [Myrbetriq] 25 mg PO QAM 09/12/22 [History] [place]-3/Dha/Epa/Fish Oil [Fish Oil 1,000 mg Softgel] 1 each PO QAM 09/12/22 [History] Vitamin E (Dl,Tocopheryl Acet) [Vitamin E (400 Iu = 180 mg)] 400 unit PO QAM 09/12/22 [History] Losartan [Cozaar] 50 mg PO HS 09/16/22 [History] Albuterol Inhaler [Ventolin Hfa Inhaler] 90 mcg INHALATION Q4HR PRN 09/28/22 [History] Finasteride [Proscar] 5 mg PO QAM 09/28/22 [History] Atorvastatin [Lipitor] 20 mg PO DAILY 12/19/23 [History] Fluticasone/Umeclidin/Vilanter [Trelegy Ellipta 100-62.5-25] 1 inhalation INHALATION DAILY 12/19/23 [History] Sennosides/Docusate Sodium [Senna Plus 8.6-50 mg Softgel] 1 each PO DAILY #20 capsule 05/18/24 [Rx] HYDROcodone/APAP 7.5-325MG [[place] 7.5-325] 1 tab PO Q6HR PRN #24 tab 05/20/24 [Rx] Follow up Appointment(s)/Referral(s): Qasim Freire, PAC [PHYSICIAN [employer]ER] - 2 Weeks (Office is closed at time of discharge. Please call for follow-up appointment.) [facility]ipment [NON-STAFF] - As Needed (*Call [facility] once home to arrange delivery of the Continuous Passive Motion (CPM) machine. ) Patient Instructions/Handouts: Knee Replacement (GEN) Activity/Diet/Wound Care/Special Instructions: Orthopedic Discharge Instructions: 1. Wound care and infection precautions, keep incision dry and covered while showering, no lotions, creams, moisturizers. No soaking, pools, hot tubs. Do not scrub over incision. 2. Weight-bear as tolerated with walker / cane until follow-up. 3. Ice and elevate when necessary. Do not exceed 20 minutes per hour with ice pack. 4. Utilize compression sleeve until seen at first follow up appointment. 5. Pain meds and anticoagulants per prescription. 6. Pain medication has potential to cause constipation. Increase oral fluid and fiber intake. Contact primary care provider if you have not had a bowel movement within 48 hours after discharge. 7. No anti-inflammatory medication until discussed at first post operative visit, this including Motrin, Aleve, Mobic, Diclofenac. 8. Follow up in office at 2 weeks postop with Joaquim Granados PA-C / Qasim Freire PA-C 9. Follow up with your primary care doctor 7-10 days after discharge. 10. Contact [facility] with any questions, . Keep incision clean, dry, intact. While showering, cover fusion tape with Saran wrap. Keep fusion tape on until follow-up appointment office in 2 weeks. Discharge Disposition: TRANSFER TO SNF/ECF
[2024-05-20] MEDS: IPRATROPIUM 0.5 MG/2.5 ML NEBU INHALATION SCH (08:37)
[2024-05-20 09:00] LABS: Basophils # (A) 0.02 X 10*3/uL (0.00-0.10); Basophils % (A) 0.2 %; Eosinophils # (A) 0.18 X 10*3/uL (0.04-0.35); Eosinophils % (A) 1.9 %; HCT 33.5 % (39.6-50.0); HGB 11.2 g/dL (13.0-17.0); Lymphocytes # (A) 1.61 X 10*3/uL (0.90-5.00); Lymphocytes % (A) 16.8 %; MCH 29.6 pg (27.0-32.0); MCHC 33.4 g/dL (32.0-37.0); MCV 88.4 FL (80.0-97.0); Monocytes # (A) 1.12 X 10*3/uL (0.20-1.00); Monocytes % (A) 11.7 %; NRBC Per 100 WBC 0 X 10*3/uL (0.00-0.01); Neutrophils % (A) 69.1 %; Platelet Count 83 X 10*3/uL (140-440); RBC 3.79 X 10*6/uL (4.40-5.60); RDW 13.1 % (11.5-14.5); WBC 9.56 X 10*3/uL (4.50-10.00)
--- NOTE | 2024-05-20 09:41 | P.PN ---
Subjective Progress Note Date: 05/20/24 Principal diagnosis: Right knee osteoarthritis Patient was seen at bedside this morning sitting up in chair on 4 S. Patient says he has been up walking a few times since surgery and is only using a walker to aid. Patient says he did work with physical therapy yesterday and did have a difficult time ambulating around the room. Patient says he did discuss with transition social worker potentially going to rehab once discharged from the hospital. Patient says pain is well-controlled oral medication. Patient says he has not had bowel movement yet, however, patient states he is passing gas. Patient denies any other orthopedic complaints at this time. Objective - Vital Signs Vital signs: Vital Signs Temp 97.6 F 05/20/24 08:52 Pulse 77 05/20/24 08:52 Resp 17 05/20/24 07:40 BP 103/65 05/20/24 08:52 Pulse Ox 95 05/20/24 07:40 FiO2 Intake & Output 05/19/24 05/20/24 05/20/24 18:59 06:59 18:59 Output Total 600 Balance -600 Output: Urine 600 Other: # Voids 1 - Exam Right knee: Incision is clean, dry, and intact. The exofin fusion tape is in good condition. There is minimal soft tissue swelling and ecchymosis surrounding the medial and lateral aspects of the incision. Calf is soft, no tenderness with palpation. Plantar flexion, dorsiflexion, EHL, FHL are intact. Sensory exam to light touch throughout the extremity is intact, dorsal pedis pulses 2+. - Labs CBC & Chem 7: 05/20/24 03:31 05/18/24 09:19 Labs: Abnormal Lab Results - Last 24 Hours (Table) 05/20/24 Range/Units 03:31 RBC 3.79 L (4.40-5.60) X 10*6/uL Hgb 11.2 L (13.0-17.0) g/dL Hct 33.5 L (39.6-50.0) % Plt Count 83 L (140-440) X 10*3/uL MPV 13.0 H (9.5-12.2) FL Monocytes # 1.12 H (0.20-1.00) X 10*3/uL Assessment and Plan Assessment: 1. Right knee osteoarthritis - Postoperative day 3 status post right total knee arthroplasty Plan: 1. Right knee osteoarthritis - right total knee arthroplasty performed 05/17/2024. Patient stable at bedside this morning. Pain medication as needed. Weightbearing as tolerated with walker and assistance as needed. Patient did have a difficult time ambulating yesterday with therapy. Case management working on rehab placement. discharge to rehab today. 2. Appreciate medical management 3. Pain management - [place] 4. GI prophylaxis - senna 5. DVT prophylaxis - Xarelto in hospital. To take aspirin 81 mg twice a day for 30 days once discharged from hospital 6. PT/OT - weightbearing as tolerated with walker 7. Encourage incentive spirometer use 8. Discharge planning -plan for discharge to rehab today Time with Patient: Less than 30
--- NOTE | 2024-05-20 10:04 | P.PN ---
Subjective Progress Note Date: 05/20/24 This is an 84-year-old gentleman status post right total knee arthroplasty, tolerated procedure well. Currently sitting up in chair, complaining of pain- pain medication and ice pending. Passing flatus. Denies nausea or vomiting. Voiding without difficulty. denies chest pain, palpitations or shortness of breath. Maintaining O2 sats in the mid 90s on room air. Afebrile, normal WBC. Hemoglobin 11.2, platelets 83, renal function stable. Objective - Vital Signs Vital signs: Vital Signs Temp 97.6 F 05/20/24 08:52 Pulse 77 05/20/24 08:52 Resp 17 05/20/24 07:40 BP 103/65 05/20/24 08:52 Pulse Ox 95 05/20/24 07:40 FiO2 Intake & Output 05/19/24 05/20/24 05/20/24 18:59 06:59 18:59 Output Total 600 Balance -600 Output: Urine 600 Other: # Voids 1 - Exam GENERAL: Obese, sitting up in chair, alert and oriented x 3, no acute distress. HEENT: Normocephalic, atraumatic pupils are round and equal. Conjunctival normal. CARDIOVASCULAR: S1 and S2 present. No murmurs, rubs, or gallops. PULMONARY: Unlabored, equal air entry ,chest is clear to auscultation ABDOMEN: Soft, nontender, nondistended, normoactive bowel sounds. No palpable organomegaly. EXTREMITIES: Right lower extremity dressing clean dry and intact, no apparent cyanosis, clubbing, or pedal edema. NEUROLOGICAL: Gross neurological examination did not reveal any focal deficits. SKIN: Warm and dry, no apparent rashes. - Labs CBC & Chem 7: 05/20/24 03:31 05/18/24 09:19 Labs: Abnormal Lab Results - Last 24 Hours (Table) 05/20/24 Range/Units 03:31 RBC 3.79 L (4.40-5.60) X 10*6/uL Hgb 11.2 L (13.0-17.0) g/dL Hct 33.5 L (39.6-50.0) % Plt Count 83 L (140-440) X 10*3/uL MPV 13.0 H (9.5-12.2) FL Monocytes # 1.12 H (0.20-1.00) X 10*3/uL Assessment and Plan Assessment: Right knee osteoarthritis, status post elective right total knee arthroplasty CAD COPD GERD hearing loss hyperlipidemia hypertension BPH Medically cleared for discharge to [facility] subacute rehab. Medically cleared for DC .maintain aggressive pulmonary toileting with incentive spirometer every hour x 10 while awake. Pain management including ice for affected extremity. Pain management and DVT prophylaxis as per primary. With PCP in 1 week after DC from subacute rehab. The impression and plan of care has been dictated as directed. : I performed a history and examination of this patient, discussed the same with the dictator. I agree with the dictator's note ,documented as a scribe. Any additional findings or plans will be noted.
[2024-05-20 15:27] VITALS: BP 146/74; PULSE 86; RESP 19; TEMP 97.9
== END 2024-05-20 17:51 ==
LOC: OR 05:34 → 4SSUR 09:48 → OR 05-20 17:51
PROVIDERS: ATTEND Orthopaedic Surgery
DX: M17.11 Unilateral primary osteoarthritis, right knee (principal); E78.5 Hyperlipidemia, unspecified; G89.18 Other acute postprocedural pain; I10 Essential (primary) hypertension; I25.10 Atherosclerotic heart disease of native coronary artery without angina pectoris; J44.9 Chronic obstructive pulmonary disease, unspecified; K21.9 Gastro-esophageal reflux disease without esophagitis; M81.0 Age-related osteoporosis without current pathological fracture; N40.0 Benign prostatic hyperplasia without lower urinary tract symptoms; Z79.01 Long term (current) use of anticoagulants; Z79.82 Long term (current) use of aspirin; Z79.899 Other long term (current) drug therapy; Z87.891 Personal history of nicotine dependence; Z88.5 Allergy status to narcotic agent; Z80.0 Family history of malignant neoplasm of digestive organs
CPT/HCPCS: 94640; 97116 ×2; 97162; 97166; 64999; 64448; 80048; 85025 ×2; 73560; 27447; C1713 ×2; C1776; C1751; S0138 ×2; J2250; J1100; J0690 ×3; J2405; J2795 ×2; J1171

== ENCOUNTER 2024-08-24 15:05 | Inpatient (IN) | payer MEDICARE ==
--- NOTE | 2024-08-24 15:53 | ED ---
URI HPI - General Source: patient, family, RN notes reviewed Mode of arrival: ambulatory Limitations: no limitations <Ambika Allen - Last Filed: 08/24/24 15:51> - General Source: patient, family, RN notes reviewed Mode of arrival: ambulatory Limitations: no limitations <Torres Connor - Last Filed: 08/24/24 17:38> - General Chief Complaint: Upper Respiratory Infection Stated Complaint: cough Time Seen by Provider: 08/24/24 15:20 - History of Present Illness Initial Comments: quick hfcv-84-sclr-old male with history of COPD presenting to emergency department for productive cough and lethargy over the past 2 to 3 days. Denies chest pain or difficulty in breathing. Daughter at bedside states that she heard "rattling "in the patient's chest earlier today. (Ambika Allen) Patient is an 84-year-old male present to the emergency department with cough and dyspnea. Symptoms started just a day or 2 ago. No fever however patient has fatigue and general weakness. No calf pain or leg swelling. No nasal congestion. Patient does have history of COPD with similar symptoms previously. (Torres Connor) - Related Data Home Medications Medication Instructions Recorded Confirmed Aspirin [Adult Low Dose Aspirin EC] 81 mg PO BID 03/09/18 05/18/24 Tamsulosin [Flomax] 0.4 mg PO HS 03/09/18 05/15/24 Omeprazole 20 mg PO HS 12/02/19 05/15/24 atenoloL [Tenormin] 50 mg PO BID 12/02/19 05/15/24 HYDROcodone/APAP 5-325MG [Cameron 1 tab PO TID PRN 09/29/21 05/15/24 5-325] Ascorbic Acid [Vitamin C] 1,000 mg PO QAM 09/12/22 05/15/24 Cholecalciferol [Vitamin D3 (25 25 mcg PO QAM 09/12/22 05/15/24 Mcg = 1000 Iu)] Mirabegron [Myrbetriq] 25 mg PO QAM 09/12/22 05/15/24 [place]-3/Dha/Epa/Fish Oil [Fish Oil 1 each PO QAM 09/12/22 05/15/24 1,000 mg Softgel] Vitamin E (Dl,Tocopheryl Acet) 400 unit PO QAM 09/12/22 05/15/24 [Vitamin E (400 Iu = 180 mg)] Albuterol Inhaler [Ventolin Hfa 90 mcg INHALATION Q4HR PRN 09/28/22 05/15/24 Inhaler] Finasteride [Proscar] 5 mg PO QAM 09/28/22 05/15/24 Atorvastatin [Lipitor] 20 mg PO DAILY 12/19/23 05/15/24 Fluticasone/Umeclidin/Vilanter 1 inhalation INHALATION DAILY 12/19/23 05/15/24 [Trelegy Ellipta 100-62.5-25] Previous Rx's Medication Instructions Recorded Sennosides/Docusate Sodium [Senna 1 each PO DAILY #20 capsule 05/18/24 Plus 8.6-50 mg Softgel] HYDROcodone/APAP 7.5-325MG [Cameron 1 tab PO Q6HR PRN #24 tab 05/20/24 7.5-325] Ipratropium Nebulized [Atrovent 0.5 mg INHALATION RT-QID ml 05/20/24 Nebulized 0.2 MG/ML] Losartan [Cozaar] 50 mg PO HS tab 05/20/24 Magnesium Hydroxide [Milk of 2,400 mg PO DAILY PRN ml 05/20/24 Magnesia] Rivaroxaban [Xarelto] 10 mg PO DAILY 9 Days #9 tab 05/20/24 Allergies Allergy/AdvReac Type Severity Reaction Status Date / Time tramadol Allergy Rash/Hives Verified 05/17/24 06:10 Review of Systems ROS Other: All systems not noted in ROS Statement are negative. <Ambika Allen - Last Filed: 08/24/24 15:51> ROS Other: All systems not noted in ROS Statement are negative. Constitutional: Reports: chills. Denies: fever Eyes: Denies: eye pain ENT: Denies: ear pain Respiratory: Reports: as per HPI, cough, dyspnea Cardiovascular: Denies: chest pain Endocrine: Reports: fatigue Gastrointestinal: Denies: abdominal pain Musculoskeletal: Denies: back pain <Torres Connor - Last Filed: 08/24/24 17:38> ROS Statement: Those systems with pertinent positive or pertinent negative responses have been documented in the HPI. Past Medical History Past Medical History: Coronary Artery Disease (CAD), COPD, GERD/Reflux, Hearing Disorder / Deafness, Hyperlipidemia, Hypertension, Musculoskeletal Disorder, Osteoarthritis (OA), Prostate Disorder, Sleep Apnea/CPAP/BIPAP Additional Past Medical History / Comment(s): Wears Hearing aids, full dentures. Back pain, pain in legs, NT in feet. C/O bloating, constipation, N/V, loss of appetite. Poss sleep apnea. History of Any Multi-Drug Resistant Organisms: None Reported Past Surgical History: Heart Catheterization With Stent Additional Past Surgical History / Comment(s): Colonoscopy. 01/04/21 cortisone injection lt knee. PAIN CLINIC PROCEDURE Past Anesthesia/Blood Transfusion Reactions: No Reported Reaction Date of Last Stent Placement:: 2009 Past Psychological History: No Psychological Hx Reported Smoking Status: Former smoker Past Alcohol Use History: None Reported Past Drug Use History: None Reported - Past Family History Father Family Medical History: Cancer Mother Family Medical History: Cancer Daughter(s) Family Medical History: Deep Vein Thrombosis (DVT), Myocardial Infarction ([place]) Sister(s) Family Medical History: Cancer Additional Family Medical History / Comment(s): Colon cancer. Brother(s) Family Medical History: Cancer <Ambika Allen - Last Filed: 08/24/24 15:51> General Exam Limitations: no limitations <Ambika Allen - Last Filed: 08/24/24 15:51> Limitations: no limitations General appearance: alert, in no apparent distress Head exam: Present: normocephalic Eye exam: Present: normal appearance Neck exam: Present: normal inspection Respiratory exam: Present: wheezes, decreased breath sounds Cardiovascular Exam: Present: regular rate, normal rhythm GI/Abdominal exam: Present: soft. Absent: tenderness Extremities exam: Present: normal inspection. Absent: pedal edema, calf tenderness Neurological exam: Present: alert Psychiatric exam: Present: normal affect, normal mood Skin exam: Present: normal color <Torres Connor - Last Filed: 08/24/24 17:38> - General Exam Comments Initial Comments: Visual Physical Exam Vital signs reviewed General: Well-appearing, nontoxic, no acute distress. Head: Normocephalic, atraumatic Eyes: PERRLA, EOMI ENT: Airway patent Chest: Nonlabored breathing Skin: No visual rash, normal skin tone Neuro: Alert and oriented 3 Musculoskeletal: No gross abnormalities (Ambika Allen) Course Vital Signs 08/24/24 08/24/24 08/24/24 15:31 16:52 17:00 Temperature 98.2 F Pulse Rate 58 L 59 L 58 L Respiratory 20 18 Rate Blood Pressure 115/62 147/69 O2 Sat by Pulse 94 L 94 L Oximetry Medical Decision Making <Ambika Allen - Last Filed: 08/24/24 15:51> - Lab Data Result diagrams: 08/24/24 16:04 08/24/24 16:04 <Torres Connor - Last Filed: 08/24/24 17:38> - Medical Decision Making I completed the quick note portion of this chart signed Ambika Allen PA-C (Ambika Allen) Was pt. sent in by a medical professional or institution ([facility], [employer], urgent care, hospital, or assisted...) When possible be specific @ -No Did you speak to anyone other than the patient for history (EMS, parent, family, police, friend...)? What history was obtained from this source @ -Daughter is present and helps right history including patient history of COPD Did you review nursing and triage notes (agree or disagree)? Why? @ -I reviewed and agree with nursing and triage notes Were old charts reviewed (outside hosp., previous admission, EMS record, old EKG, old radiological studies, urgent care reports/EKG's, assisted records)? Report findings @ -No old charts were reviewed Differential Diagnosis (chest pain, altered mental status, abdominal pain women, abdominal pain men, vaginal bleeding, weakness, fever, dyspnea, syncope, headache, dizziness, GI bleed, back pain, seizure, CVA, palpatations, mental health, musculoskeletal)? @ -Differential Dyspnea: Coronary syndrome, arrhythmia, tamponade, asthma, COPD, pulmonary embolism, pneumonia, pneumothorax, pulmonary effusion, anaphylaxis, diabetic ketoacidosis, flailed chest, pulmonary contusion, diaphragmatic rupture, anemia, ne uromuscular, this is not meant to be an all-inclusive list. EKG interpreted by me (3pts min.). @ -As above X-rays interpreted by me (1pt min.). @ -Chest x-ray shows no acute process CT interpreted by me (1pt min.). @ -None done U/S interpreted by me (1pt. min.). @ -None done What testing was considered but not performed or refused? (CT, X-rays, U/S, labs)? Why? @ -None What meds were considered but not given or refused? Why? @ -None Did you discuss the management of the patient with other professionals (professionals i.e. , PA, [employer], lab, RT, psych nurse, manager social media, rn lactation, teacher, immigration services officer, watch caser)? Give summary @ -Case was discussed with practitioner Deanna Dominguez who will admit covering Dr. Pizano. Was smoking cessation discussed for >3mins.? @ -No Was critical care preformed (if so, how long)? @ -No Were there social determinants of health that impacted care today? How? (Homelessness, low income, unemployed, alcoholism, drug addiction, transportation, low edu. Level, literacy, decrease access to med. care, snf, rehab)? @ -No Was there de-escalation of care discussed even if they declined (Discuss DNR or withdrawal of care, Hospice)? DNR status @ -No What co-morbidities impacted this encounter? (DM, HTN, Smoking, COPD, CAD, Cancer, CVA, ARF, Chemo, Hep., AIDS, mental health diagnosis, sleep apnea, morbid obesity)? @ -History of COPD Was patient admitted / discharged? Hospital course, mention meds given and route, prescriptions, significant lab abnormalities, going to OR and other pertinent info. @ -Patient presents with cough and dyspnea and fatigue. Positive influenza. Patient is hypoxic with history of COPD and wheezing and decreased air exchange. Patient will be admitted with pulmonary consult. Admission orders written. Patient and family updated. Patient reevaluated. Undiagnosed new problem with uncertain prognosis? @ -No Drug Therapy requiring intensive monitoring for toxicity (Heparin, Nitro, Insulin, Cardizem)? @ -No Were any procedures done? @ -No Diagnosis/symptom? @ -Influenza Acute, or Chronic, or Acute on Chronic? @ -Acute Uncomplicated (without systemic symptoms) or Complicated (systemic symptoms)? @ -Complicated with underlying COPD Side effects of treatment? @ -No Exacerbation, Progression, or Severe Exacerbation? @ -Exacerbation of COPD Poses a threat to life or bodily function? How? (Chest pain, [place], [place], pneumonia, PE, COPD, DKA, ARF, appy, cholecystitis, CVA, Diverticulitis, Homicidal, Suic idal, threat to staff... and all critical care pts) @ -Threat to pulmonary function (Torres Connor) - Lab Data Lab Results 08/24/24 08/24/24 08/24/24 Range/Units 16:04 16:04 16:04 WBC 7.5 (3.8-10.6) k/uL RBC 4.51 (4.30-5.90) m/uL Hgb 12.6 L (13.0-17.5) gm/dL Hct 39.8 (39.0-53.0) % MCV 88.2 (80.0-100.0) fL MCH 27.9 (25.0-35.0) pg MCHC 31.6 (31.0-37.0) g/dL RDW 13.9 (11.5-15.5) % Plt Count 81 L (150-450) k/uL MPV 9.8 Neutrophils % 81 % Lymphocytes % 11 % Monocytes % 7 % Eosinophils % 0 % Basophils % 0 % Neutrophils # 6.1 (1.3-7.7) k/uL Lymphocytes # 0.8 L (1.0-4.8) k/uL Monocytes # 0.5 (0-1.0) k/uL Eosinophils # 0.0 (0-0.7) k/uL Basophils # 0.0 (0-0.2) k/uL Manual Slide Review Performed Large Platelets Present Sodium 131 L (137-145) mmol/L Potassium 4.1 (3.5-5.1) mmol/L Chloride 99 (98-107) mmol/L Carbon Dioxide 24 (22-30) mmol/L Anion Gap 8 mmol/L BUN 29 H (9-20) mg/dL Creatinine 1.03 (0.66-1.25) mg/dL Est GFR (CKD-EPI)AfAm 77 (>60 ml/min/1.73 sqM) Est GFR (CKD-EPI)NonAf 66 (>60 ml/min/1.73 sqM) Glucose 122 H (74-99) mg/dL Calcium 9.7 (8.4-10.2) mg/dL Total Bilirubin 0.8 (0.2-1.3) mg/dL AST 34 (17-59) U/L ALT 17 (4-49) U/L Alkaline Phosphatase 103 (38-126) U/L Total Protein 5.8 L (6.3-8.2) g/dL Albumin 3.5 (3.5-5.0) g/dL Influenza Type A (PCR) Detected A (Not Detectd) Influenza Type B (PCR) Not Detected (Not Detectd) RSV (PCR) Not Detected (Not Detectd) SARS-CoV-2 (PCR) Not Detected (Not Detectd) Disposition <Ambika Allen - Last Filed: 08/24/24 15:51> Is patient prescribed a controlled substance at d/c from ED?: No Time of Disposition: 17:38 <Torres Connor - Last Filed: 08/24/24 17:38> Clinical Impression: Influenza Disposition: ADMITTED IP TO THIS HOSP Condition: Serious Referrals: Ryan Pizano DO [Primary Care Provider] - 1-2 days
[2024-08-24 16:18] LABS: ALT 17 U/L (4-49); AST 34 U/L (17-59); African American GFR (CKD) 77 (>60 ml/min/1.73 sqM); Albumin 3.5 g/dL (3.5-5.0); Alkaline Phosphatase 103 U/L (38-126); Anion Gap 8 mmol/L; Blood Urea Nitrogen 29 mg/dL (9-20); Calcium 9.7 mg/dL (8.4-10.2); Carbon Dioxide 24 mmol/L (22-30); Chloride 99 mmol/L (98-107); Glucose 122 mg/dL (74-99); Non-African American GFR(CKD) 66 (>60 ml/min/1.73 sqM); Potassium 4.1 mmol/L (3.5-5.1); Sodium 131 mmol/L (137-145); Total Bilirubin 0.8 mg/dL (0.2-1.3); Total Protein 5.8 g/dL (6.3-8.2)
--- NOTE | 2024-08-24 16:19 | XR ---
EXAMINATION TYPE: XR chest 2V DATE OF EXAM: 08/24/2024 4:15 PM COMPARISON: 02/05/23 CLINICAL INDICATION: Male, 84 years old with history of productive cough: Shortness of breath TECHNIQUE: XR chest 2V views of the chest are obtained. FINDINGS: Scattered senescent parenchymal changes noted. Hyperinflation compatible with COPD. No evidence for infiltrate. No evidence for atelectasis. Chronic elevation right hemidiaphragm. Heart size is stable. Mediastinal structures are stable and grossly unremarkable. No evidence for hilar prominence. Degenerative changes dorsal spine. IMPRESSION: 1. No evidence for acute pulmonary disease. [facility], , 08/24/2024 4:16 PM
[2024-08-24 16:32] LABS: Basophils % (A) 0 %; Eosinophils % (A) 0 %; HCT 39.8 % (39.0-53.0); HGB 12.6 gm/dL (13.0-17.5); Lymphocytes # (A) 0.8 k/uL (1.0-4.8); Lymphocytes % (A) 11 %; MCH 27.9 pg (25.0-35.0); MCHC 31.6 g/dL (31.0-37.0); MCV 88.2 fL (80.0-100.0); Mean Platelet Volume 9.8; Monocytes # (A) 0.5 k/uL (0-1.0); Monocytes % (A) 7 %; Neutrophils # (A) 6.1 k/uL (1.3-7.7); Neutrophils % (A) 81 %; RBC 4.51 m/uL (4.30-5.90); RDW 13.9 % (11.5-15.5); WBC 7.5 k/uL (3.8-10.6)
[2024-08-24 16:49] LABS: Influenza A Detected (Not Detectd); Influenza B Not Detected (Not Detectd); RSV Not Detected (Not Detectd)
[2024-08-24] MEDS: IPRATROPIUM-ALBUTEROL 3 ML NEB INHALATION STA (16:52)
[2024-08-24 16:58] LABS: Large Platelets Present
[2024-08-24 16:59] LABS: Platelet Count 81 k/uL (150-450)
[2024-08-24] MEDS ORDERED: IPRATROPIUM-ALBUTEROL 3 ML NEB INHALATION PRN (17:38)
[2024-08-24] MEDS ORDERED: ACETAMINOPHEN TAB 325 MG TAB PO PRN (17:38)
[2024-08-24] MEDS ORDERED: NALOXONE 0.4 MG/ML 1 ML VIAL IVP PRN (17:38)
[2024-08-24] MEDS: methylPREDNISolone SOD SUCCI 125 MG/2 ML VIAL IV STA (17:57)
[2024-08-24] MEDS: OSELTAMIVIR 75 MG CAP PO SCH (18:00)
[2024-08-24] MEDS ORDERED: ALBUTEROL HFA INHALER INHALATION PRN (18:13)
[2024-08-24] MEDS: IPRATROPIUM-ALBUTEROL 3 ML NEB INHALATION SCH (19:49)
[2024-08-24] MEDS: SYMBICORT 160-4.5 MCG INHALER INHALATION SCH (19:49)
[2024-08-24] MEDS: methylPREDNISolone SOD SUCCI 125 MG/2 ML VIAL IV SCH (19:59)
[2024-08-24] MEDS: NON FORMULARY DRUG (Mirabegron [Myrbetriq] 25 MG Tab.Er.24h) PO SCH (20:05)
[2024-08-24] MEDS: ASPIRIN 81 MG PO SCH (20:37)
[2024-08-24] MEDS: TAMSULOSIN 0.4 MG CAP.ER.24H PO SCH (20:37)
[2024-08-24] MEDS: LOSARTAN 50 MG TAB PO SCH (20:37)
[2024-08-24] MEDS: atenoloL 50 MG TAB PO SCH (20:37)
[2024-08-24] MEDS: FINASTERIDE 5 MG TAB PO SCH (20:38)
[2024-08-24] MEDS: ATORVASTATIN 20 MG TAB PO SCH (20:38)
[2024-08-24] MEDS: PREGABALIN 100 MG CAP PO SCH (20:57)
[2024-08-24] MEDS ORDERED: OSELTAMIVIR 75 MG CAP PO SCH (21:00)
[2024-08-24 22:50] LABS: Appearance,Urine Clear (Clear); Bilirubin,Urine Negative (Negative); Blood,Urine Negative (Negative); Color,Urine Yellow; Glucose,Urine (UA) Negative (Negative); Ketones,Urine Negative (Negative); Leukocyte Esterase,Urine Negative (Negative); Nitrite,Urine Negative (Negative); PH, Urine 5.5 (5.0-8.0); Protein,Urine Trace (Negative); Specific Gravity,Urine 1.021 (1.001-1.035); Urobilinogen,Urine <2.0 mg/dL (<2.0)
[2024-08-25 06:02] LABS: Glucose,Whole Blood 160 mg/dL (70-110)
[2024-08-25] MEDS: TIOTROPIUM 2.5 MCG INHALER INHALATION SCH (08:01)
[2024-08-25] MEDS: CHOLECALCIFEROL 25 MCG (1000 IU) TABLET PO SCH (08:11)
[2024-08-25] MEDS: bisacodyL 5 MG TABLET.DR PO SCH (08:11)
[2024-08-25] MEDS: ASCORBIC ACID 500 MG TAB PO SCH (08:12)
[2024-08-25] MEDS: ZINC SULFATE 220 MG CAP PO SCH (08:12)
[2024-08-25] MEDS: PANTOPRAZOLE 40 MG TABLET PO SCH (08:12)
[2024-08-25] MEDS: CYANOCOBALAMIN 500 MCG TAB PO SCH (08:12)
[2024-08-25] MEDS: MAGNESIUM OXIDE 400 MG TAB PO SCH (08:17)
[2024-08-25] MEDS: OSELTAMIVIR 30 MG CAP PO SCH (08:18)
[2024-08-25] MEDS ORDERED: NON FORMULARY DRUG (Omega-3/Dha/Epa/Fish Oil [Fish Oil 1,000 Mg Softgel] 1 EACH Capsule) PO SCH (09:00)
[2024-08-25] MEDS ORDERED: NON FORMULARY DRUG (Ubidecarenone [Co Q-10] 300 MG Capsule) PO SCH (09:00)
[2024-08-25] MEDS ORDERED: GINSENG 100 MG PO SCH (09:00)
[2024-08-25] MEDS ORDERED: VITAMIN K2 100 MCG PO SCH (09:00)
[2024-08-25] MEDS: VITAMIN E (DL,TOCOPHERYL ACET) 400 UNIT (180 MG) CAP PO SCH (10:33)
[2024-08-25 11:38] LABS: Basophils % (A) 0 %; Eosinophils % (A) 0 %; HCT 40.1 % (39.0-53.0); HGB 12.8 gm/dL (13.0-17.5); Lymphocytes # (A) 0.4 k/uL (1.0-4.8); Lymphocytes % (A) 5 %; MCH 28.1 pg (25.0-35.0); MCV 87.8 fL (80.0-100.0); Monocytes # (A) 0.3 k/uL (0-1.0); Monocytes % (A) 4 %; Neutrophils # (A) 6.7 k/uL (1.3-7.7); Neutrophils % (A) 90 %; RBC 4.57 m/uL (4.30-5.90); RDW 13.9 % (11.5-15.5); WBC 7.4 k/uL (3.8-10.6)
[2024-08-25 11:39] LABS: Platelet Count 83 k/uL (150-450)
[2024-08-25 11:43] LABS: Glucose,Whole Blood 167 mg/dL (70-110)
[2024-08-25 11:45] LABS: African American GFR (CKD) >90 (>60 ml/min/1.73 sqM); Anion Gap 4 mmol/L; Blood Urea Nitrogen 23 mg/dL (9-20); Calcium 9.9 mg/dL (8.4-10.2); Carbon Dioxide 27 mmol/L (22-30); Chloride 102 mmol/L (98-107); Glucose 160 mg/dL (74-99); Non-African American GFR(CKD) 82 (>60 ml/min/1.73 sqM); Sodium 133 mmol/L (137-145)
[2024-08-25 12:03] LABS: C Reactive Protein 13.3 mg/dL (<1.0)
[2024-08-25] MEDS: AZITHROMYCIN 500 MG TAB PO SCH (12:39)
--- NOTE | 2024-08-25 14:12 | P.CNPUL ---
History of Present Illness Consult date: 08/25/24 Reason for consult: dyspnea History of present illness: 84-year-old male patient, known history of COPD maintained on Trelegy Ellipta on outpatient basis, presenting to the hospital because of increased cough and shortness of breath and the patient was finding lethargic over the past 2 to 3 days. No reported chest pain. No pleurisy or hemoptysis. Symptoms started approximately 2 days ago. The patient was having generalized weakness in addition. The patient came into the emergency and the patient tested for influenza A and he was positive. Rest of the blood work showed a white cell count of 7.4, hemoglobin of 12.8 and a platelet count of 83. BUN is 23 with a creatinine of 0.7 and a sodium levels at 133. No nausea. No emesis. LFTs are normal. No altered mentation. He is currently on 1-1/2 L of oxygen by nasal cannula with a pulse ox of 99%. The patient was started on DuoNeb updrafts 4 times a day [id number], Symbicort 2 puffs twice a day and IV Solu-Medrol. The patient was also given Tamiflu. His home medication resumed. No aspiration. He is a former smoker. His comorbidities include coronary artery disease, COPD, hearing loss, hypertension hyperlipidemia and osteoarthritis and the patient has undergone a recent elective right knee arthroplasty. Review of Systems Constitutional: Reports fatigue, Reports weakness Eyes: denies as per HPI, denies blurred vision, denies bulging eye, denies decreased vision, denies diplopia, denies discharge, denies dry eye, denies irritation, denies itching, denies pain, denies photophobia, denies loss of peripheral vision, denies loss of vision, denies tunnel vision/blind spots Ears: deny: decreased hearing, ear discharge, earache, tinnitus Ears, nose, mouth and throat: Reports as per HPI Breasts: absent: as per HPI, gynecomastia Cardiovascular: Reports decreased exercise tolerance, Reports dyspnea on exertion Respiratory: Reports cough, Reports dyspnea, Reports wheezing Gastrointestinal: Reports as per HPI Genitourinary: Reports as per HPI Musculoskeletal: Reports as per HPI Musculoskeletal: absent: ankle pain, ankle stiffness, ankle swelling, as per HPI, elbow pain, elbow stiffness, elbow swelling, foot pain, foot stiffness, foot swelling, hand pain, hand stiffness, hand swelling, hip pain, hip stiffness, hip swelling, knee pain, knee stiffness, knee swelling, shoulder pain, shoulder stiffness, shoulder swelling, wrist pain, wrist stiffness, wrist swelling Integumentary: Reports as per HPI Neurological: Reports as per HPI Psychiatric: Reports as per HPI Endocrine: Reports as per HPI Hematologic/Lymphatic: Reports as per HPI Allergic/Immunologic: Reports as per HPI Past Medical History Past Medical History: Coronary Artery Disease (CAD), COPD, GERD/Reflux, Hearing Disorder / Deafness, Hyperlipidemia, Hypertension, Musculoskeletal Disorder, Osteoarthritis (OA), Prostate Disorder, Sleep Apnea/CPAP/BIPAP Additional Past Medical History / Comment(s): Wears Hearing aids, full dentures. Back pain, pain in legs, NT in feet. C/O bloating, constipation, N/V, loss of appetite. Poss sleep apnea. History of Any Multi-Drug Resistant Organisms: None Reported Past Surgical History: Heart Catheterization With Stent Additional Past Surgical History / Comment(s): Colonoscopy. 01/04/21 cortisone injection lt knee. PAIN CLINIC PROCEDURE Past Anesthesia/Blood Transfusion Reactions: No Reported Reaction Date of Last Stent Placement:: 2009 Past Psychological History: No Psychological Hx Reported Smoking Status: Former smoker Past Alcohol Use History: None Reported Additional Past Alcohol Use History / Comment(s): SMOKING AT AGE 19, QUIT AT AGE 24, SMOKED A CIGAR A DAY Past Drug Use History: None Reported Additional Drug Use History / Comment(s): EDIBLE GUMMIES FOR PAIN AT NIGHT - Past Family History Father Family Medical History: Cancer Mother Family Medical History: Cancer Daughter(s) Family Medical History: Deep Vein Thrombosis (DVT), Myocardial Infarction (ID) Sister(s) Family Medical History: Cancer Additional Family Medical History / Comment(s): Colon cancer. Brother(s) Family Medical History: Cancer Medications and Allergies Home Medications Medication Instructions Recorded Confirmed Type Aspirin [Adult Low Dose Aspirin EC] 81 mg PO HS 03/09/18 08/24/24 History Tamsulosin [Flomax] 0.4 mg PO HS 03/09/18 08/24/24 History Omeprazole 20 mg PO DAILY 12/02/19 08/24/24 History atenoloL [Tenormin] 50 mg PO BID 12/02/19 08/24/24 History HYDROcodone/APAP 5-325MG [[place] 1 tab PO TID PRN 09/29/21 08/24/24 History 5-325] Ascorbic Acid [Vitamin C] 1,000 mg PO DAILY 09/12/22 08/24/24 History Cholecalciferol [Vitamin D3 (25 50 mcg PO DAILY 09/12/22 08/24/24 History Mcg = 1000 Iu)] Mirabegron [Myrbetriq] 25 mg PO HS 09/12/22 08/24/24 History [place]-3/Dha/Epa/Fish Oil [Fish Oil 1 cap PO DAILY 09/12/22 08/24/24 History 1,000 mg Softgel] Vitamin E (Dl,Tocopheryl Acet) 400 unit PO DAILY 09/12/22 08/24/24 History [Vitamin E (400 Iu = 180 mg)] Albuterol Inhaler [Ventolin Hfa 2 puff INHALATION RT-Q4H PRN 09/28/22 08/24/24 History Inhaler] Finasteride [Proscar] 5 mg PO HS 09/28/22 08/24/24 History Fluticasone/Umeclidin/Vilanter 1 puff INHALATION RT-DAILY 12/19/23 08/24/24 History [Trelegy Ellipta 100-62.5-25] Losartan [Cozaar] 50 mg PO HS tab 05/20/24 08/24/24 Rx Atorvastatin [Lipitor] 20 mg PO HS 08/24/24 08/24/24 History Cyanocobalamin (Vitamin B-12) 1,000 mcg PO DAILY 08/24/24 08/24/24 History [Vitamin B-12] Ginseng 100 mg PO DAILY 08/24/24 08/24/24 History Magnesium Oxide [Mag-Ox] 400 mg PO DAILY 08/24/24 08/24/24 History Pregabalin [Lyrica] 100 mg PO BID 08/24/24 08/24/24 History Ubidecarenone [Co Q-10] 300 mg PO DAILY 08/24/24 08/24/24 History Vitamin K2 [Vitamin K-2] 100 mcg PO DAILY 08/24/24 08/24/24 History Zinc Gluconate [Zinc] 50 mg PO DAILY 08/24/24 08/24/24 History bisacodyL [Dulcolax] 10 mg PO DAILY 08/24/24 08/24/24 History Allergies Allergy/AdvReac Type Severity Reaction Status Date / Time tramadol Allergy Rash/Hives Verified 08/24/24 17:37 Physical Exam Vitals: Vital Signs Temp Pulse Pulse Resp BP BP Pulse Ox 08/25/24 08:42 72 08/25/24 08:30 72 99 08/25/24 07:08 98.3 F 51 L 18 162/74 99 08/25/24 02:34 97.4 F L 63 17 155/71 96 08/24/24 22:03 98.3 F 82 17 130/61 94 L 08/24/24 21:42 71 16 122/62 96 08/24/24 20:00 68 08/24/24 19:49 71 08/24/24 17:46 71 16 145/63 95 08/24/24 17:00 58 L 08/24/24 16:52 59 L 18 147/69 94 L 08/24/24 15:31 98.2 F 58 L 20 115/62 94 L Intake and Output 08/24/24 08/25/24 08/25/24 22:59 06:59 14:59 Output Total 520 Balance -520 Output: Post Void Residual 520 Other: Voiding Method Toilet Urinal # Voids 2 Weight 98.43 kg The patient appeared well nourished and normally developed. Vital signs as documented. Currently on 1.5 L of oxygen nasal cannula, body mass index is 33 Head exam is unremarkable. No scleral icterus or corneal arcus noted. Neck is without jugular venous distension, thyromegaly, or carotid bruits. Carotid upstrokes are brisk bilaterally. Lungs are diminished breath sounds along with scattered expiratory wheeze Cardiac exam reveals the PMI to be normally sized and situated. Rhythm is regular. First and second heart sounds normal. No murmurs, rubs or gallops. Abdominal exam reveals normal bowel sounds, no masses, no organomegaly and no aortic enlargement. Extremities are nonedematous and both femoral and pedal pulses are normal. Examination of the skin revealed no evidence of significant rashes, suspicious appearing nevi or other concerning lesions. Neurologically, the patient is awake and alert and the patient does not have any focal neurological deficit. Cranial nerves are essentially intact. Results - Laboratory Findings CBC and BMP: 08/25/24 11:12 08/25/24 11:12 Abnormal lab findings: Abnormal Labs 08/24/24 08/24/24 08/24/24 16:04 16:04 16:04 Hgb 12.6 L Plt Count 81 L Lymphocytes # 0.8 L Sodium 131 L BUN 29 H Glucose 122 H POC Glucose (mg/dL) Total Protein 5.8 L Urine Protein Influenza Type A (PCR) Detected A 08/24/24 08/25/24 22:30 06:00 Hgb Plt Count Lymphocytes # Sodium BUN Glucose POC Glucose (mg/dL) 160 H Total Protein Urine Protein Trace H Influenza Type A (PCR) - Diagnostic Findings Chest x-ray: image reviewed Assessment and Plan Plan: Acute COPD exacerbation with secondary shortness of breath Acute influenza A infection/tracheobronchitis. Chest x-ray done in the emergency department shows no acute cardiopulmonary abnormalities and there is no evidence of pneumonia. 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 The patient is currently on 1 1/2 L of oxygen by nasal cannula Albuterol nebulizer treatments 4 times a day [id number] Symbicort 2 puffs twice a day Tamiflu IV Solu-Medrol Resume home medications Condition is stable. Anticipate further recovery within the next 24 to 48 hour s.
[2024-08-25 16:46] LABS: Glucose,Whole Blood 178 mg/dL (70-110)
--- NOTE | 2024-08-25 18:26 | P.HPIM ---
History of Present Illness H&P Date: 08/24/24 Chief Complaint: Cough and shortness of breath 84-year-old male present to the emergency department with cough and dyspnea. Symptoms started just a day or 2 ago. No fever however patient has fatigue and general weakness. No calf pain or leg swelling. No nasal congestion. Patient does have history of COPD with similar symptoms previously. Workup completed in the emergency and the patient tested for influenza A and he was positive. --the blood work showed a white cell count of 7.4, hemoglobin of 12.8 and a platelet count of 83. BUN is 23 with a creatinine of 0.7 and a sodium levels at 133. No nausea. No emesis. LFTs are normal. Chest x-ray is negative for any acute pulmonary process Review of Systems REVIEW OF SYSTEMS: CONSTITUTIONAL: No fever, no malaise, no fatigue. HEENT: No recent visual problems or hearing problems. Denied any sore throat. CARDIOVASCULAR: No chest pain, orthopnea, PND, no palpitations, no syncope. PULMONARY: No shortness of breath, no cough, no hemoptysis. GASTROINTESTINAL: No diarrhea, no nausea, no vomiting, no abdominal pain. NEUROLOGICAL: No headaches, no weakness, no numbness. HEMATOLOGICAL: Denies any bleeding or petechiae. GENITOURINARY: Denies any burning micturition, frequency, or urgency. MUSCULOSKELETAL/RHEUMATOLOGICAL: Denies any joint pain, swelling, or any muscle pain. ENDOCRINE: Denies any polyuria or polydipsia. The rest of the 14-point review of systems is negative. Past Medical History Past Medical History: Coronary Artery Disease (CAD), COPD, GERD/Reflux, Hearing Disorder / Deafness, Hyperlipidemia, Hypertension, Musculoskeletal Disorder, Osteoarthritis (OA), Prostate Disorder, Sleep Apnea/CPAP/BIPAP Additional Past Medical History / Comment(s): Wears Hearing aids, full dentures. Back pain, pain in legs, NT in feet. C/O bloating, constipation, N/V, loss of appetite. Poss sleep apnea. History of Any Multi-Drug Resistant Organisms: None Reported Past Surgical History: Heart Catheterization With Stent Additional Past Surgical History / Comment(s): Colonoscopy. 01/04/21 cortisone injection lt knee. PAIN CLINIC PROCEDURE Past Anesthesia/Blood Transfusion Reactions: No Reported Reaction Date of Last Stent Placement:: 2009 Past Psychological History: No Psychological Hx Reported Smoking Status: Former smoker Past Alcohol Use History: None Reported Past Drug Use History: None Reported - Past Family History Father Family Medical History: Cancer Mother Family Medical History: Cancer Daughter(s) Family Medical History: Deep Vein Thrombosis (DVT), Myocardial Infarction (PR) Sister(s) Family Medical History: Cancer Additional Family Medical History / Comment(s): Colon cancer. Brother(s) Family Medical History: Cancer Medications and Allergies Home Medications Medication Instructions Recorded Confirmed Type Aspirin [Adult Low Dose Aspirin EC] 81 mg PO HS 03/09/18 08/24/24 History Tamsulosin [Flomax] 0.4 mg PO HS 03/09/18 08/24/24 History Omeprazole 20 mg PO DAILY 12/02/19 08/24/24 History atenoloL [Tenormin] 50 mg PO BID 12/02/19 08/24/24 History HYDROcodone/APAP 5-325MG [[place] 1 tab PO TID PRN 09/29/21 08/24/24 History 5-325] Ascorbic Acid [Vitamin C] 1,000 mg PO DAILY 09/12/22 08/24/24 History Cholecalciferol [Vitamin D3 (25 50 mcg PO DAILY 09/12/22 08/24/24 History Mcg = 1000 Iu)] Mirabegron [Myrbetriq] 25 mg PO HS 09/12/22 08/24/24 History [place]-3/Dha/Epa/Fish Oil [Fish Oil 1 cap PO DAILY 09/12/22 08/24/24 History 1,000 mg Softgel] Vitamin E (Dl,Tocopheryl Acet) 400 unit PO DAILY 09/12/22 08/24/24 History [Vitamin E (400 Iu = 180 mg)] Albuterol Inhaler [Ventolin Hfa 2 puff INHALATION RT-Q4H PRN 09/28/22 08/24/24 History Inhaler] Finasteride [Proscar] 5 mg PO HS 09/28/22 08/24/24 History Fluticasone/Umeclidin/Vilan[place] 1 puff INHALATION RT-DAILY 12/19/23 08/24/24 History [Trelegy Ellipta 100-62.5-25] Losartan [Cozaar] 50 mg PO HS tab 05/20/24 08/24/24 Rx Atorvastatin [Lipitor] 20 mg PO HS 08/24/24 08/24/24 History Cyanocobalamin (Vitamin B-12) 1,000 mcg PO DAILY 08/24/24 08/24/24 History [Vitamin B-12] Ginseng 100 mg PO DAILY 08/24/24 08/24/24 History Magnesium Oxide [Mag-Ox] 400 mg PO DAILY 08/24/24 08/24/24 History Pregabalin [Lyrica] 100 mg PO BID 08/24/24 08/24/24 History Ubidecarenone [Co Q-10] 300 mg PO DAILY 08/24/24 08/24/24 History Vitamin K2 [Vitamin K-2] 100 mcg PO DAILY 08/24/24 08/24/24 History Zinc Gluconate [Zinc] 50 mg PO DAILY 08/24/24 08/24/24 History bisacodyL [Dulcolax] 10 mg PO DAILY 08/24/24 08/24/24 History Allergies Allergy/AdvReac Type Severity Reaction Status Date / Time tramadol Allergy Rash/Hives Verified 08/24/24 17:37 Physical Exam Vitals: Vital Signs Temp Pulse Resp BP Pulse Ox 08/24/24 17:46 71 16 145/63 95 08/24/24 17:00 58 L 08/24/24 16:52 59 L 18 147/69 94 L 08/24/24 15:31 98.2 F 58 L 20 115/62 94 L Intake and Output 08/24/24 08/24/24 08/24/24 06:59 14:59 22:59 Other: Weight 98.43 kg General: Well-appearing, nontoxic, no acute distress. Head: Normocephalic, atraumatic Eyes: PERRLA, EOMI ENT: Airway patent Chest: Nonlabored breathing Skin: No visual rash, normal skin tone Neuro: Alert and oriented 3 Musculoskeletal: No gross abnormalities Results CBC & Chem 7: 08/25/24 11:12 08/25/24 11:12 Labs: Abnormal Lab Results - Last 24 Hours (Table) 08/24/24 08/24/24 08/24/24 Range/Units 16:04 16:04 16:04 Hgb 12.6 L (13.0-17.5) gm/dL Plt Count 81 L (150-450) k/uL Lymphocytes # 0.8 L (1.0-4.8) k/uL Sodium 131 L (137-145) mmol/L BUN 29 H (9-20) mg/dL Glucose 122 H (74-99) mg/dL Total Protein 5.8 L (6.3-8.2) g/dL Influenza Type A (PCR) Detected A (Not Detectd) Assessment and Plan Assessment: 1. Influenza A infection -Influenza A PCR is positive; patient has been placed on Tamiflu 75 mg twice daily -Continue with symptomatic treatment 2. Purulent tracheobronchitis; patient continues to report cough productive of yellowish-green phlegm; chest x-ray is negative for pneumonia -Will add IV Rocephin and azithromycin -Will consult pulmonary for further evaluation 3. Acute exacerbation COPD; patient received IV Solu-Medrol in ED; we will continue on a maintenance dose; DuoNeb nebulizer treatments 4 times daily and as needed 4. Acute hypoxic respiratory failure; currently on O2 at 3 L per nasal cannula; we will titrate or wean keeping O2 saturation greater than 92% 5. Hypertension; atenolol 50 mg twice daily; losartan 50 mg daily 6. Hyperlipidemia; Lipitor 20 mg p.o. nightly 7. Coronary artery disease; continued with aspirin 81 mg daily, Tenormin 50 mg twice daily and Lipitor 20 mg nightly 8. Obstructive sleep apnea 9. BPH; Proscar 5 mg nightly 10. Chronic back pain; [place] 5 mg 1 p.o. 3 times daily DVT prophylaxis; SCDs/subcu heparin CODE STATUS; full code
--- NOTE | 2024-08-25 18:27 | P.PN ---
Subjective Progress Note Date: 08/25/24 84-year-old male present to the emergency department with cough and dyspnea. Symptoms started just a day or 2 ago. No fever however patient has fatigue and general weakness. No calf pain or leg swelling. No nasal congestion. Patient does have history of COPD with similar symptoms previously. Workup completed in the emergency and the patient tested for influenza A and he was positive. --the blood work showed a white cell count of 7.4, hemoglobin of 12.8 and a platelet count of 83. BUN is 23 with a creatinine of 0.7 and a sodium levels at 133. No nausea. No emesis. LFTs are normal. Chest x-ray is negative for any acute pulmonary process Objective - Vital Signs Vital signs: Vital Signs Temp 98.3 F 08/25/24 07:08 Pulse 72 08/25/24 08:42 Resp 18 08/25/24 07:08 BP 162/74 08/25/24 07:08 Pulse Ox 99 08/25/24 08:30 FiO2 Intake & Output 08/24/24 08/25/24 08/25/24 18:59 06:59 18:59 Output Total 520 Balance -520 Weight 98.43 kg 98.43 kg Output: Post Void Residual 520 Other: Voiding Method Toilet Urinal # Voids 2 - Exam General: Well-appearing, nontoxic, no acute distress. Head: Normocephalic, atraumatic Eyes: PERRLA, EOMI ENT: Airway patent Chest: Nonlabored breathing Skin: No visual rash, normal skin tone Neuro: Alert and oriented 3 Musculoskeletal: No gross abnormalities - Labs CBC & Chem 7: 08/25/24 11:12 08/25/24 11:12 Labs: Abnormal Lab Results - Last 24 Hours (Table) 08/24/24 08/24/24 08/24/24 Range/Units 16:04 16:04 16:04 Hgb 12.6 L (13.0-17.5) gm/dL Plt Count 81 L (150-450) k/uL Lymphocytes # 0.8 L (1.0-4.8) k/uL Sodium 131 L (137-145) mmol/L BUN 29 H (9-20) mg/dL Glucose 122 H (74-99) mg/dL POC Glucose (mg/dL) (70-110) mg/dL Total Protein 5.8 L (6.3-8.2) g/dL Urine Protein (Negative) Influenza Type A (PCR) Detected A (Not Detectd) 08/24/24 08/25/24 Range/Units 22:30 06:00 Hgb (13.0-17.5) gm/dL Plt Count (150-450) k/uL Lymphocytes # (1.0-4.8) k/uL Sodium (137-145) mmol/L BUN (9-20) mg/dL Glucose (74-99) mg/dL POC Glucose (mg/dL) 160 H (70-110) mg/dL Total Protein (6.3-8.2) g/dL Urine Protein Trace H (Negative) Influenza Type A (PCR) (Not Detectd) Assessment and Plan Assessment: 1. Influenza A infection -Influenza A PCR is positive; patient has been placed on Tamiflu 75 mg twice daily -Continue with symptomatic treatment 2. Purulent tracheobronchitis; patient continues to report cough productive of yellowish-green phlegm; chest x-ray is negative for pneumonia -Will add IV Rocephin and azithromycin -Will consult pulmonary for further evaluation 3. Acute exacerbation COPD; patient received IV Solu-Medrol in ED; we will continue on a maintenance dose; DuoNeb nebulizer treatments 4 times daily and as needed 4. Acute hypoxic respiratory failure; currently on O2 at 3 L per nasal cannula; we will titrate or wean keeping O2 saturation greater than 92% 5. Hypertension; atenolol 50 mg twice daily; losartan 50 mg daily 6. Hyperlipidemia; Lipitor 20 mg p.o. nightly 7. Coronary artery disease; continued with aspirin 81 mg daily, Tenormin 50 mg twice daily and Lipitor 20 mg nightly 8. Obstructive sleep apnea 9. BPH; Proscar 5 mg nightly 10. Chronic back pain; [place] 5 mg 1 p.o. 3 times daily DVT prophylaxis; SCDs/subcu heparin CODE STATUS; full code
[2024-08-25 20:47] LABS: Glucose,Whole Blood 216 mg/dL (70-110)
[2024-08-26] MEDS: HYDROcodone/APAP 5-325MG 1 EACH TAB PO PRN (05:46)
[2024-08-26 06:05] LABS: Glucose,Whole Blood 143 mg/dL (70-110)
[2024-08-26 09:31] LABS: Blood Urea Nitrogen 22.5 mg/dL (9.0-27.0); Calcium 9.5 mg/dL (8.7-10.3); Carbon Dioxide 24.2 mmol/L (21.6-31.8); Chloride 104 mmol/L (96-109); Glucose 166 mg/dL (70-110); Potassium 4.1 mmol/L (3.5-5.5); Sodium 137 mmol/L (135-145)
[2024-08-26 09:34] LABS: Basophils # (A) 0.01 X 10*3/uL (0.00-0.10); Basophils % (A) 0.1 %; Eosinophils # (A) 0 X 10*3/uL (0.04-0.35); Eosinophils % (A) 0 %; HCT 39.7 % (39.6-50.0); Lymphocytes # (A) 0.43 X 10*3/uL (0.90-5.00); Lymphocytes % (A) 3.8 %; MCH 28.3 pg (27.0-32.0); MCHC 32.7 g/dL (32.0-37.0); MCV 86.5 FL (80.0-97.0); Mean Platelet Volume 13.1 FL (9.5-12.2); Monocytes # (A) 0.45 X 10*3/uL (0.20-1.00); NRBC Per 100 WBC 0 X 10*3/uL (0.00-0.01); Neutrophils # (A) 10.33 X 10*3/uL (1.80-7.70); Neutrophils % (A) 91.6 %; Platelet Count 101 X 10*3/uL (140-440); RBC 4.59 X 10*6/uL (4.40-5.60); RDW 13.4 % (11.5-14.5); WBC 11.28 X 10*3/uL (4.50-10.00)
[2024-08-26 11:51] LABS: Glucose,Whole Blood 186 mg/dL (70-110)
--- NOTE | 2024-08-26 15:03 | P.PN ---
Subjective Progress Note Date: 08/26/24 84-year-old male patient, known history of COPD maintained on Trelegy Ellipta on outpatient basis, presenting to the hospital because of increased cough and shortness of breath and the patient was finding lethargic over the past 2 to 3 days. No reported chest pain. No pleurisy or hemoptysis. Symptoms started approximately 2 days ago. The patient was having generalized weakness in addition. The patient came into the emergency and the patient tested for influenza A and he was positive. Rest of the blood work showed a white cell count of 7.4, hemoglobin of 12.8 and a platelet count of 83. BUN is 23 with a creatinine of 0.7 and a sodium levels at 133. No nausea. No emesis. LFTs are normal. No altered mentation. He is currently on 1-1/2 L of oxygen by nasal cannula with a pulse ox of 99%. The patient was started on DuoNeb updrafts 4 times a day [id number], Symbicort 2 puffs twice a day and IV Solu-Medrol. The patient was also given Tamiflu. His home medication resumed. No as piration. He is a former smoker. His comorbidities include coronary artery disease, COPD, hearing loss, hypertension hyperlipidemia and osteoarthritis and the patient has undergone a recent elective right knee arthroplasty. The patient is seen today August 26, 2024 in follow-up on the regular medical floor. He is awake and alert in no acute distress. Sitting up in a chair at the bedside. Maintaining O2 saturations in the 90s on room air. He is still somewhat bronchospastic and wheezing. White count 11.2. Hemoglobin 13.0. Platelets 101. Sodium 137. Potassium 4.1. Bicarb 24. BUN 23. Creatinine 0.9. Glucose 166. He is continued on DuoNeb inhalations, Symbicort, Solu- Medrol. Remains on Tamiflu. Remains on azithromycin. Objective - Vital Signs Vital signs: Vital Signs Temp 97.5 F L 08/26/24 13:35 Pulse 64 08/26/24 13:35 Resp 17 08/26/24 13:35 BP 137/67 08/26/24 13:35 Pulse Ox 96 08/26/24 13:35 FiO2 Intake & Output 08/25/24 08/26/24 08/26/24 18:59 06:59 18:59 Other: Voiding Method Toilet Toilet Urinal # Voids 3 3 - Exam GENERAL EXAM: Alert, pleasant 84-year-old gentleman, up in a chair, on room air, fairly comfortable in no apparent distress. HEAD: Normocephalic. EYES: Normal reaction of pupils, equal size. NOSE: Clear with pink turbinates. THROAT: No erythema or exudates. NECK: No masses, no JVD. CHEST: No chest wall deformity. LUNGS: Equal air entry with bilateral end expiratory wheeze, few scattered r honchi. CVS: S1 and S2 normal with no audible murmur, regular rhythm. ABDOMEN: No hepatosplenomegaly, normal bowel sounds, no guarding or rigidity. SPINE: No scoliosis or deformity SKIN: No rashes CENTRAL NERVOUS SYSTEM: No focal deficits, tone is normal in all 4 extremities. EXTREMITIES: There is no peripheral edema. No clubbing, no cyanosis. Peripheral pulses are intact. - Labs CBC & Chem 7: 08/26/24 03:36 08/26/24 03:36 Labs: Abnormal Lab Results - Last 24 Hours (Table) 08/25/24 08/25/24 08/25/24 Range/Units 11:12 16:45 20:46 WBC (4.50-10.00) X 10*3/uL Plt Count (140-440) X 10*3/uL MPV (9.5-12.2) FL Immature Gran # (0.00-0.04) X 10*3/uL Neutrophils # (1.80-7.70) X 10*3/uL Lymphocytes # (0.90-5.00) X 10*3/uL Eosinophils # (0.04-0.35) X 10*3/uL BUN/Creatinine Ratio (12.00-20.00) Ratio Glucose (70-110) mg/dL POC Glucose (mg/dL) 178 H 216 H (70-110) mg/dL Procalcitonin 0.75 H (0.02-0.50) ng/mL 08/26/24 08/26/24 08/26/24 Range/Units 03:36 03:36 06:04 WBC 11.28 H (4.50-10.00) X 10*3/uL Plt Count 101 L (140-440) X 10*3/uL MPV 13.1 H (9.5-12.2) FL Immature Gran # 0.06 H (0.00-0.04) X 10*3/uL Neutrophils # 10.33 H (1.80-7.70) X 10*3/uL Lymphocytes # 0.43 L (0.90-5.00) X 10*3/uL Eosinophils # 0 L (0.04-0.35) X 10*3/uL BUN/Creatinine Ratio 25.00 H (12.00-20.00) Ratio Glucose 166 H (70-110) mg/dL POC Glucose (mg/dL) 143 H (70-110) mg/dL Procalcitonin (0.02-0.50) ng/mL 08/26/24 Range/Units 11:49 WBC (4.50-10.00) X 10*3/uL Plt Count (140-440) X 10*3/uL MPV (9.5-12.2) FL Immature Gran # (0.00-0.04) X 10*3/uL Neutrophils # (1.80-7.70) X 10*3/uL Lymphocytes # (0.90-5.00) X 10*3/uL Eosinophils # (0.04-0.35) X 10*3/uL BUN/Creatinine Ratio (12.00-20.00) Ratio Glucose (70-110) mg/dL POC Glucose (mg/dL) 186 H (70-110) mg/dL Procalcitonin (0.02-0.50) ng/mL Assessment and Plan Assessment: Acute COPD exacerbation complicated by influenza A Acute influenza A infection/tracheobronchitis. Chest x-ray done in the emergency department shows no acute cardiopulmonary abnormalities and there is no evidence of pneumonia. 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 Number of minutes spent on the visit: 10 Dictation was produced using iPouritation software. Please excuse any grammatical, word or spelling errors.
[2024-08-26 16:42] LABS: Glucose,Whole Blood 190 mg/dL (70-110)
[2024-08-26 21:00] LABS: Glucose,Whole Blood 248 mg/dL (70-110)
--- NOTE | 2024-08-26 22:42 | P.PN ---
Subjective Progress Note Date: 08/26/24 84-year-old male present to the emergency department with cough and dyspnea. Symptoms started just a day or 2 ago. No fever however patient has fatigue and general weakness. No calf pain or leg swelling. No nasal congestion. Patient does have history of COPD with similar symptoms previously. Workup completed in the emergency and the patient tested for influenza A and he was positive. --the blood work showed a white cell count of 7.4, hemoglobin of 12.8 and a platelet count of 83. BUN is 23 with a creatinine of 0.7 and a sodium levels at 133. No nausea. No emesis. LFTs are normal. Chest x-ray is negative for any acute pulmonary process 08/26/2024 Patient seen today he is still little bit wheezing with cough his symptoms are improved since admission he denies any new fever he continues to follow-up with pulmonary. Objective - Vital Signs Vital signs: Vital Signs Temp 98.3 F 08/25/24 07:08 Pulse 72 08/25/24 08:42 Resp 18 08/25/24 07:08 BP 162/74 08/25/24 07:08 Pulse Ox 99 08/25/24 08:30 FiO2 Intake & Output 08/24/24 08/25/24 08/25/24 18:59 06:59 18:59 Output Total 520 Balance -520 Weight 98.43 kg 98.43 kg Output: Post Void Residual 520 Other: Voiding Method Toilet Urinal # Voids 2 - Exam General: Well-appearing, nontoxic, no acute distress. Head: Normocephalic, atraumatic Eyes: PERRLA, EOMI ENT: Airway patent Chest: Nonlabored breathing Skin: No visual rash, normal skin tone Neuro: Alert and oriented 3 Musculoskeletal: No gross abnormalities - Labs CBC & Chem 7: 08/25/24 11:12 08/25/24 11:12 Labs: Abnormal Lab Results - Last 24 Hours (Table) 08/24/24 08/24/24 08/24/24 Range/Units 16:04 16:04 16:04 Hgb 12.6 L (13.0-17.5) gm/dL Plt Count 81 L (150-450) k/uL Lymphocytes # 0.8 L (1.0-4.8) k/uL Sodium 131 L (137-145) mmol/L BUN 29 H (9-20) mg/dL Glucose 122 H (74-99) mg/dL POC Glucose (mg/dL) (70-110) mg/dL Total Protein 5.8 L (6.3-8.2) g/dL Urine Protein (Negative) Influenza Type A (PCR) Detected A (Not Detectd) 08/24/24 08/25/24 Range/Units 22:30 06:00 Hgb (13.0-17.5) gm/dL Plt Count (150-450) k/uL Lymphocytes # (1.0-4.8) k/uL Sodium (137-145) mmol/L BUN (9-20) mg/dL Glucose (74-99) mg/dL POC Glucose (mg/dL) 160 H (70-110) mg/dL Total Protein (6.3-8.2) g/dL Urine Protein Trace H (Negative) Influenza Type A (PCR) (Not Detectd) Assessment and Plan Assessment: 1. Influenza A infection -Influenza A PCR is positive; patient has been placed on Tamiflu 75 mg twice daily -Continue with symptomatic treatment 2. Purulent tracheobronchitis; patient continues to report cough productive of yellowish-green phlegm; chest x-ray is negative for pneumonia -Will add IV Rocephin and azithromycin -Will consult pulmonary for further evaluation 3. Acute exacerbation COPD; patient received IV Solu-Medrol in ED; we will continue on a maintenance dose; DuoNeb nebulizer treatments 4 times daily and as needed 4. Acute hypoxic respiratory failure; currently on O2 at 3 L per nasal cannula; we will titrate or wean keeping O2 saturation greater than 92% 5. Hypertension; atenolol 50 mg twice daily; losartan 50 mg daily 6. Hyperlipidemia; Lipitor 20 mg p.o. nightly 7. Coronary artery disease; continued with aspirin 81 mg daily, Tenormin 50 mg twice daily and Lipitor 20 mg nightly 8. Obstructive sleep apnea 9. BPH; Proscar 5 mg nightly 10. Chronic back pain; [place] 5 mg 1 p.o. 3 times daily DVT prophylaxis; SCDs/subcu heparin Patient continues to improve hopefully discharge within next 24 hours when cleared by pulmonary. Objective - Vital Signs Vital signs: Vital Signs Temp 97.5 F L 08/26/24 13:35 Pulse 60 08/26/24 20:51 Resp 17 08/26/24 13:35 BP 137/67 08/26/24 13:35 Pulse Ox 96 08/26/24 13:35 FiO2 Intake & Output 08/26/24 08/26/24 08/27/24 06:59 18:59 06:59 Other: Voiding Method Toilet Urinal # Voids 3 3 - Labs CBC & Chem 7: 08/26/24 03:36 08/26/24 03:36 Labs: Abnormal Lab Results - Last 24 Hours (Table) 08/25/24 08/26/24 08/26/24 Range/Units 11:12 03:36 03:36 WBC 11.28 H (4.50-10.00) X 10*3/uL Plt Count 101 L (140-440) X 10*3/uL MPV 13.1 H (9.5-12.2) FL Immature Gran # 0.06 H (0.00-0.04) X 10*3/uL Neutrophils # 10.33 H (1.80-7.70) X 10*3/uL Lymphocytes # 0.43 L (0.90-5.00) X 10*3/uL Eosinophils # 0 L (0.04-0.35) X 10*3/uL BUN/Creatinine Ratio 25.00 H (12.00-20.00) Ratio Glucose 166 H (70-110) mg/dL POC Glucose (mg/dL) (70-110) mg/dL Procalcitonin 0.75 H (0.02-0.50) ng/mL 08/26/24 08/26/24 08/26/24 Range/Units 06:04 11:49 16:40 WBC (4.50-10.00) X 10*3/uL Plt Count (140-440) X 10*3/uL MPV (9.5-12.2) FL Immature Gran # (0.00-0.04) X 10*3/uL Neutrophils # (1.80-7.70) X 10*3/uL Lymphocytes # (0.90-5.00) X 10*3/uL Eosinophils # (0.04-0.35) X 10*3/uL BUN/Creatinine Ratio (12.00-20.00) Ratio Glucose (70-110) mg/dL POC Glucose (mg/dL) 143 H 186 H 190 H (70-110) mg/dL Procalcitonin (0.02-0.50) ng/mL 08/26/24 Range/Units 20:59 WBC (4.50-10.00) X 10*3/uL Plt Count (140-440) X 10*3/uL MPV (9.5-12.2) FL Immature Gran # (0.00-0.04) X 10*3/uL Neutrophils # (1.80-7.70) X 10*3/uL Lymphocytes # (0.90-5.00) X 10*3/uL Eosinophils # (0.04-0.35) X 10*3/uL BUN/Creatinine Ratio (12.00-20.00) Ratio Glucose (70-110) mg/dL POC Glucose (mg/dL) 248 H (70-110) mg/dL Procalcitonin (0.02-0.50) ng/mL
[2024-08-27 06:22] LABS: Glucose,Whole Blood 139 mg/dL (70-110)
[2024-08-27 11:48] LABS: Glucose,Whole Blood 243 mg/dL (70-110)
--- NOTE | 2024-08-27 15:11 | P.PN ---
Subjective Progress Note Date: 08/27/24 84-year-old male patient, known history of COPD maintained on Trelegy Ellipta on outpatient basis, presenting to the hospital because of increased cough and shortness of breath and the patient was finding lethargic over the past 2 to 3 days. No reported chest pain. No pleurisy or hemoptysis. Symptoms started approximately 2 days ago. The patient was having generalized weakness in addition. The patient came into the emergency and the patient tested for influenza A and he was positive. Rest of the blood work showed a white cell count of 7.4, hemoglobin of 12.8 and a platelet count of 83. BUN is 23 with a creatinine of 0.7 and a sodium levels at 133. No nausea. No emesis. LFTs are normal. No altered mentation. He is currently on 1-1/2 L of oxygen by nasal cannula with a pulse ox of 99%. The patient was started on DuoNeb updrafts 4 times a day [id number], Symbicort 2 puffs twice a day and IV Solu-Medrol. The patient was also given Tamiflu. His home medication resumed. No as piration. He is a former smoker. His comorbidities include coronary artery disease, COPD, hearing loss, hypertension hyperlipidemia and osteoarthritis and the patient has undergone a recent elective right knee arthroplasty. The patient is seen today August 26, 2024 in follow-up on the regular medical floor. He is awake and alert in no acute distress. Sitting up in a chair at the bedside. Maintaining O2 saturations in the 90s on room air. He is still somewhat bronchospastic and wheezing. White count 11.2. Hemoglobin 13.0. Platelets 101. Sodium 137. Potassium 4.1. Bicarb 24. BUN 23. Creatinine 0.9. Glucose 166. He is continued on DuoNeb inhalations, Symbicort, Solu- Medrol. Remains on Tamiflu. Remains on azithromycin. The patient is seen today August 27, 2024 in follow-up on the regular medical floor. He is currently sitting up in a chair. Awake and alert in no acute d istress. Maintaining good O2 saturations on room air oxygen. No worsening shortness of breath, cough or congestion. He is continued on DuoNeb and elations, Symbicort, Solu-Medrol. Antibiotics in the form of ceftriaxone. Completed azithromycin. He remains on Tamiflu. Glucose 243. Objective - Vital Signs Vital signs: Vital Signs Temp 97.9 F 08/27/24 07:15 Pulse 68 08/27/24 12:29 Resp 22 08/27/24 07:15 BP 166/81 08/27/24 07:15 Pulse Ox 94 L 08/27/24 07:15 FiO2 Intake & Output 08/26/24 08/27/24 08/27/24 18:59 06:59 18:59 Other: # Voids 3 2 - Exam GENERAL EXAM: Alert, 84-year-old gentleman, up in a chair, on room air, comfortable in no apparent distress. HEAD: Normocephalic. EYES: Normal reaction of pupils, equal size. NOSE: Clear with pink turbinates. THROAT: No erythema or exudates. NECK: No masses, no JVD. CHEST: No chest wall deformity. LUNGS: Equal air entry with few scattered rhonchi. CVS: S1 and S2 normal with no audible murmur, regular rhythm. ABDOMEN: No hepatosplenomegaly, normal bowel sounds, no guarding or rigidity. SPINE: No scoliosis or deformity SKIN: No rashes CENTRAL NERVOUS SYSTEM: No focal deficits, tone is normal in all 4 extremities. EXTREMITIES: There is no peripheral edema. No clubbing, no cyanosis. Liz pheral pulses are intact. - Labs CBC & Chem 7: 08/26/24 03:36 08/26/24 03:36 Labs: Abnormal Lab Results - Last 24 Hours (Table) 08/26/24 08/26/24 08/27/24 Range/Units 16:40 20:59 06:20 POC Glucose (mg/dL) 190 H 248 H 139 H (70-110) mg/dL 08/27/24 Range/Units 11:45 POC Glucose (mg/dL) 243 H (70-110) mg/dL Assessment and Plan Assessment: Acute COPD exacerbation complicated by influenza A Acute influenza A infection/tracheobronchitis. Chest x-ray done in the emergency department shows no acute cardiopulmonary abnormalities and there is no evidence of pneumonia. 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 Number of minutes spent on the visit: 10 Dictation was produced using [employer] dictation software. Please excuse any grammatical, word or spelling errors.
[2024-08-27 16:46] LABS: Glucose,Whole Blood 219 mg/dL (70-110)
[2024-08-27 21:32] LABS: Glucose,Whole Blood 212 mg/dL (70-110)
--- NOTE | 2024-08-27 22:46 | P.PN ---
Subjective Progress Note Date: 08/27/24 Subjective Progress Note Date: 08/26/24 84-year-old male present to the emergency department with cough and dyspnea. Symptoms started just a day or 2 ago. No fever however patient has fatigue and general weakness. No calf pain or leg swelling. No nasal congestion. Patient does have history of COPD with similar symptoms previously. Workup completed in the emergency and the patient tested for influenza A and he was positive. --the blood work showed a white cell count of 7.4, hemoglobin of 12.8 and a platelet count of 83. BUN is 23 with a creatinine of 0.7 and a sodium levels at 133. No nausea. No emesis. LFTs are normal. Chest x-ray is negative for any acute pulmonary process 08/26/2024 Patient seen today he is still little bit wheezing with cough his symptoms are improved since admission he denies any new fever he continues to follow-up with pulmonary. 08/27/2024 patient seen today he is still with some slight cough and some wheezing on the left side he does not feel he feels much better we will see how he does today possible discharge tonight or first in the morning. He denies any fever and cough is diminished. Objective - Vital Signs Vital signs: Vital Signs Temp 98.3 F 08/25/24 07:08 Pulse 72 08/25/24 08:42 Resp 18 08/25/24 07:08 BP 162/74 08/25/24 07:08 Pulse Ox 99 08/25/24 08:30 FiO2 Intake & Output 08/24/24 08/25/24 08/25/24 18:59 06:59 18:59 Output Total 520 Balance -520 Weight 98.43 kg 98.43 kg Output: Post Void Residual 520 Other: Voiding Method Toilet Urinal # Voids 2 - Exam General: Well-appearing, nontoxic, no acute distress. Head: Normocephalic, atraumatic Eyes: PERRLA, EOMI ENT: Airway patent Chest: Nonlabored breathing Skin: No visual rash, normal skin tone Neuro: Alert and oriented 3 Musculoskeletal: No gross abnormalities - Labs CBC & Chem 7: 08/25/24 11:12 08/25/24 11:12 Labs: Abnormal Lab Results - Last 24 Hours (Table) 08/24/24 08/24/24 08/24/24 Range/Units 16:04 16:04 16:04 Hgb 12.6 L (13.0-17.5) gm/dL Plt Count 81 L (150-450) k/uL Lymphocytes # 0.8 L (1.0-4.8) k/uL Sodium 131 L (137-145) mmol/L BUN 29 H (9-20) mg/dL Glucose 122 H (74-99) mg/dL POC Glucose (mg/dL) (70-110) mg/dL Total Protein 5.8 L (6.3-8.2) g/dL Urine Protein (Negative) Influenza Type A (PCR) Detected A (Not Detectd) 08/24/24 08/25/24 Range/Units 22:30 06:00 Hgb (13.0-17.5) gm/dL Plt Count (150-450) k/uL Lymphocytes # (1.0-4.8) k/uL Sodium (137-145) mmol/L BUN (9-20) mg/dL Glucose (74-99) mg/dL POC Glucose (mg/dL) 160 H (70-110) mg/dL Total Protein (6.3-8.2) g/dL Urine Protein Trace H (Negative) Influenza Type A (PCR) (Not Detectd) Assessment and Plan Assessment: 1. Influenza A infection -Influenza A PCR is positive; patient has been placed on Tamiflu 75 mg twice daily -Continue with symptomatic treatment 2. Purulent tracheobronchitis; patient continues to report cough productive of yellowish-green phlegm; chest x-ray is negative for pneumonia -Will add IV Rocephin and azithromycin -Will consult pulmonary for further evaluation 3. Acute exacerbation COPD; patient received IV Solu-Medrol in ED; we will continue on a maintenance dose; DuoNeb nebulizer treatments 4 times daily and as needed 4. Acute hypoxic respiratory failure; currently on O2 at 3 L per nasal cannula; we will titrate or wean keeping O2 saturation greater than 92% 5. Hypertension; atenolol 50 mg twice daily; losartan 50 mg daily 6. Hyperlipidemia; Lipitor 20 mg p.o. nightly 7. Coronary artery disease; continued with aspirin 81 mg daily, Tenormin 50 mg twice daily and Lipitor 20 mg nightly 8. Obstructive sleep apnea 9. BPH; Proscar 5 mg nightly 10. Chronic back pain; [place] 5 mg 1 p.o. 3 times daily DVT prophylaxis; SCDs/subcu heparin Patient continues to improve hopefully discharge within next 24 hours when cleared by pulmonary. Objective - Vital Signs Vital signs: Vital Signs Temp 98.2 F 08/27/24 15:03 Pulse 64 08/27/24 16:26 Resp 18 08/27/24 15:03 BP 167/77 08/27/24 15:03 Pulse Ox 94 L 08/27/24 15:03 FiO2 Intake & Output 08/27/24 08/27/24 08/28/24 06:59 18:59 06:59 Other: # Voids 2 1 - Labs CBC & Chem 7: 08/26/24 03:36 08/26/24 03:36 Labs: Abnormal Lab Results - Last 24 Hours (Table) 08/27/24 08/27/24 08/27/24 Range/Units 06:20 11:45 16:44 POC Glucose (mg/dL) 139 H 243 H 219 H (70-110) mg/dL 08/27/24 Range/Units 21:29 POC Glucose (mg/dL) 212 H (70-110) mg/dL
[2024-08-28 06:28] LABS: Glucose,Whole Blood 115 mg/dL (70-110)
[2024-08-28 08:56] VITALS: BP 145/85; RESP 20; TEMP 97.4
[2024-08-28] MEDS: predniSONE 20 MG TAB PO SCH (09:04)
[2024-08-28 09:19] VITALS: PULSE 64
--- NOTE | 2024-08-28 09:27 | P.DS ---
Providers Date of admission: 08/24/24 17:38 Expected date of discharge: 08/28/24 Attending physician: Ryan Pizano Consults: 08/24/24 17:38 Consult Physician Routine Consulting Provider: Jarett Adhikari Consult Reason/Comments: flu, copd Do you want consulting provider notified?: Yes Primary care physician: Ryan Pizano [place] Course: Final Diagnoses: 1. Influenza A infection -Influenza A PCR is positive; patient has been placed on Tamiflu -Continue with symptomatic treatment 2. Purulent tracheobronchitis; patient continues to report cough productive of yellowish-green phlegm; chest x-ray is negative for pneumonia -Will add IV Rocephin and azithromycin -Will consult pulmonary for further evaluation 3. Acute exacerbation COPD; patient received IV Solu-Medrol in ED; we will continue on a maintenance dose; DuoNeb nebulizer treatments 4 times daily and as needed 4. Acute hypoxic respiratory failure; currently on O2 at 3 L per nasal cannula; we will titrate or wean keeping O2 saturation greater than 92% 5. Hypertension; atenolol 50 mg twice daily; losartan 50 mg daily 6. Hyperlipidemia; Lipitor 20 mg p.o. nightly 7. Coronary artery disease; continued with aspirin 81 mg daily, Tenormin 50 mg twice daily and Lipitor 20 mg nightly 8. Obstructive sleep apnea 9. BPH; Proscar 5 mg nightly 10. Chronic back pain; Seminary 5 mg 1 p.o. 3 times daily Hospital course: 84-year-old male present to the emergency department with cough and dyspnea. Symptoms started just a day or 2 ago. No fever however patient has fatigue and general weakness. No calf pain or leg swelling. No nasal congestion. Patient does have history of COPD with similar symptoms previously. Workup completed in the emergency and the patient tested for influenza A and he was positive. --the blood work showed a white cell count of 7.4, hemoglobin of 12.8 and a platelet count of 83. BUN is 23 with a creatinine of 0.7 and a sodium levels at 133. No nausea. No emesis. LFTs are normal. Chest x-ray is negative for any acute pulmonary process 08/26/2024 Patient seen today he is still little bit wheezing with cough his symptoms are improved since admission he denies any new fever he continues to follow-up with pulmonary. 08/27/2024 patient seen today he is still with some slight cough and some wheezing on the left side he does not feel he feels much better we will see how he does today possible discharge tonight or first in the morning. He denies any fever and cough is diminished. Significant clinical improvement. Patient has been cleared by pulmonary for d ischarge. Patient will be discharged home today in a stable condition with guarded prognosis. The impression and plan of care has been dictated as directed. : I performed a history and examination of this patient, discussed the same with the dictator. I agree with the dictator's note ,documented as a scribe. Any additional findings or plans will be noted. Patient Condition at Discharge: Stable Plan - Discharge Summary New Discharge Prescriptions: New cefuroxime axetiL [Ceftin] 500 mg PO BID #6 tab predniSONE 10 mg PO DIRECTED #30 tab Oseltamivir [Tamiflu] 30 mg PO Q12HR #3 cap Continue Tamsulosin [Flomax] 0.4 mg PO HS Aspirin [Adult Low Dose Aspirin EC] 81 mg PO HS Omeprazole 20 mg PO DAILY atenoloL [Tenormin] 50 mg PO BID Ascorbic Acid [Vitamin C] 1,000 mg PO DAILY Finasteride [Proscar] 5 mg PO HS Vitamin K2 [Vitamin K-2] 100 mcg PO DAILY Magnesium Oxide [Mag-Ox] 400 mg PO DAILY Ginseng 100 mg PO DAILY Cyanocobalamin (Vitamin B-12) [Vitamin B-12] 1,000 mcg PO DAILY Zinc Gluconate [Zinc] 50 mg PO DAILY bisacodyL [Dulcolax] 10 mg PO DAILY Atorvastatin [Lipitor] 20 mg PO HS Pregabalin [Lyrica] 100 mg PO BID HYDROcodone/APAP 5-325MG [Seminary 5-325] 1 tab PO TID PRN PRN Reason: Pain Vitamin E (Dl,Tocopheryl Acet) [Vitamin E (400 Iu = 180 mg)] 400 unit PO DAILY Cholecalciferol [Vitamin D3 (25 Mcg = 1000 Iu)] 50 mcg PO DAILY [place]-3/Dha/Epa/Fish Oil [Fish Oil 1,000 mg Softgel] 1 cap PO DAILY Mirabegron [Myrbetriq] 25 mg PO HS Albuterol Inhaler [Ventolin Hfa Inhaler] 2 puff INHALATION RT-Q4H PRN PRN Reason: Shortness Of Breath Fluticasone/Umeclidin/Vilanter [Trelegy Ellipta 100-62.5-25] 1 puff I NHALATION RT-DAILY Losartan [Cozaar] 50 mg PO HS tab Ubidecarenone [Co Q-10] 300 mg PO DAILY Discharge Medication List Aspirin [Adult Low Dose Aspirin EC] 81 mg PO HS 03/09/18 [History] Tamsulosin [Flomax] 0.4 mg PO HS 03/09/18 [History] Omeprazole 20 mg PO DAILY 12/02/19 [History] atenoloL [Tenormin] 50 mg PO BID 12/02/19 [History] HYDROcodone/APAP 5-325MG [Seminary 5-325] 1 tab PO TID PRN 09/29/21 [History] Ascorbic Acid [Vitamin C] 1,000 mg PO DAILY 09/12/22 [History] Cholecalciferol [Vitamin D3 (25 Mcg = 1000 Iu)] 50 mcg PO DAILY 09/12/22 [History] Mirabegron [Myrbetriq] 25 mg PO HS 09/12/22 [History] [place]-3/Dha/Epa/Fish Oil [Fish Oil 1,000 mg Softgel] 1 cap PO DAILY 09/12/22 [History] Vitamin E (Dl,Tocopheryl Acet) [Vitamin E (400 Iu = 180 mg)] 400 unit PO DAILY 09/12/22 [History] Albuterol Inhaler [Ventolin Hfa Inhaler] 2 puff INHALATION RT-Q4H PRN 09/28/22 [History] Finasteride [Proscar] 5 mg PO HS 09/28/22 [History] Fluticasone/Umeclidin/Vilanter [Trelegy Ellipta 100-62.5-25] 1 puff INHALATION RT-DAILY 12/19/23 [History] Losartan [Cozaar] 50 mg PO HS tab 05/20/24 [Rx] Atorvastatin [Lipitor] 20 mg PO HS 08/24/24 [History] Cyanocobalamin (Vitamin B-12) [Vitamin B-12] 1,000 mcg PO DAILY 08/24/24 [History] Ginseng 100 mg PO DAILY 08/24/24 [History] Magnesium Oxide [Mag-Ox] 400 mg PO DAILY 08/24/24 [History] Pregabalin [Lyrica] 100 mg PO BID 08/24/24 [History] Ubidecarenone [Co Q-10] 300 mg PO DAILY 08/24/24 [History] Vitamin K2 [Vitamin K-2] 100 mcg PO DAILY 08/24/24 [History] Zinc Gluconate [Zinc] 50 mg PO DAILY 08/24/24 [History] bisacodyL [Dulcolax] 10 mg PO DAILY 08/24/24 [History] Oseltamivir [Tamiflu] 30 mg PO Q12HR #3 cap 08/28/24 [Rx] cefuroxime axetiL [Ceftin] 500 mg PO BID #6 tab 08/28/24 [Rx] predniSONE 10 mg PO DIRECTED #30 tab 08/28/24 [Rx] Follow up Appointment(s)/Referral(s): Ryan Pizano DO [Primary Care Provider] - 09/17/24 11:40 am Patient Instructions/Handouts: Influenza (DC) Discharge Disposition: HOME SELF-CARE
--- NOTE | 2024-08-28 16:20 | P.PN ---
Subjective Progress Note Date: 08/28/24 84-year-old male patient, known history of COPD maintained on Trelegy Ellipta on outpatient basis, presenting to the hospital because of increased cough and shortness of breath and the patient was finding lethargic over the past 2 to 3 days. No reported chest pain. No pleurisy or hemoptysis. Symptoms started approximately 2 days ago. The patient was having generalized weakness in addition. The patient came into the emergency and the patient tested for influenza A and he was positive. Rest of the blood work showed a white cell count of 7.4, hemoglobin of 12.8 and a platelet count of 83. BUN is 23 with a creatinine of 0.7 and a sodium levels at 133. No nausea. No emesis. LFTs are normal. No altered mentation. He is currently on 1-1/2 L of oxygen by nasal cannula with a pulse ox of 99%. The patient was started on DuoNeb updrafts 4 times a day [id number], Symbicort 2 puffs twice a day and IV Solu-Medrol. The patient was also given Tamiflu. His home medication resumed. No as piration. He is a former smoker. His comorbidities include coronary artery disease, COPD, hearing loss, hypertension hyperlipidemia and osteoarthritis and the patient has undergone a recent elective right knee arthroplasty. The patient is seen today August 26, 2024 in follow-up on the regular medical floor. He is awake and alert in no acute distress. Sitting up in a chair at the bedside. Maintaining O2 saturations in the 90s on room air. He is still somewhat bronchospastic and wheezing. White count 11.2. Hemoglobin 13.0. Platelets 101. Sodium 137. Potassium 4.1. Bicarb 24. BUN 23. Creatinine 0.9. Glucose 166. He is continued on DuoNeb inhalations, Symbicort, Solu- Medrol. Remains on Tamiflu. Remains on azithromycin. The patient is seen today August 27, 2024 in follow-up on the regular medical floor. He is currently sitting up in a chair. Awake and alert in no acute d istress. Maintaining good O2 saturations on room air oxygen. No worsening shortness of breath, cough or congestion. He is continued on DuoNeb and elations, Symbicort, Solu-Medrol. Antibiotics in the form of ceftriaxone. Completed azithromycin. He remains on Tamiflu. Glucose 243. The patient is seen today August 28, 2024 in follow-up on the regular medical floor. He is awake and alert in no acute distress. Denies any worsening shortness of breath, cough or congestion. Feeling back to his baseline. Continues to maintain good O2 saturations in the 90s on room air. He is sitting up in a chair at the bedside. He is anxious to go home. Glucose 115. Continued on DuoNeb inhalations, Symbicort prednisone taper. Continued on Tamiflu. Objective - Vital Signs Vital signs: Vital Signs Temp 97.4 F L 08/28/24 07:36 Pulse 64 08/28/24 09:18 Resp 20 08/28/24 07:36 BP 145/85 08/28/24 07:36 Pulse Ox 91 L 08/28/24 07:36 FiO2 Intake & Output 08/27/24 08/28/24 08/28/24 18:59 06:59 18:59 Intake Total 0 Balance 0 Intake: Oral 1889 Other: # Voids 1 3 - Exam GENERAL EXAM: Alert, very pleasant 84-year-old gentleman, up in a chair, on room air, in no apparent distress. HEAD: Normocephalic. EYES: Normal reaction of pupils, equal size. NOSE: Clear with pink turbinates. THROAT: No erythema or exudates. NECK: No masses, no JVD. CHEST: No chest wall deformity. LUNGS: Equal air entry with few scattered rhonchi. CVS: S1 and S2 normal with no audible murmur, regular rhythm. ABDOMEN: No hepatosplenomegaly, normal bowel sounds, no guarding or rigidity. SPINE: No scoliosis or deformity SKIN: No rashes CENTRAL NERVOUS SYSTEM: No focal deficits, tone is normal in all 4 extremities. EXTREMITIES: There is no peripheral edema. No clubbing, no cyanosis. Peripheral pulses are intact. - Labs CBC & Chem 7: 08/26/24 03:36 08/26/24 03:36 Labs: Abnormal Lab Results - Last 24 Hours (Table) 08/27/24 08/27/24 08/28/24 Range/Units 16:44 21:29 06:26 POC Glucose (mg/dL) 219 H 212 H 115 H (70-110) mg/dL Assessment and Plan Assessment: Acute COPD exacerbation complicated by influenza A Acute influenza A infection/tracheobronchitis. Chest x-ray done in the emergency department shows no acute cardiopulmonary abnormalities and there is no evidence of pneumonia. 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 Number of minutes spent on the visit: 10 Dictation was produced using [employer] dictation software. Please excuse any grammatical, word or spelling errors.
== END 2024-08-28 11:52 | disposition home or self-care (01) | DRG 193 ==
LOC: EC 15:05 → 4SSUR 17:38
PROVIDERS: ADMIT Family Medicine; ATTEND Family Medicine
DX: J10.1 Influenza due to other identified influenza virus with other respiratory manifestations (principal); J96.01 Acute respiratory failure with hypoxia; J44.1 Chronic obstructive pulmonary disease with (acute) exacerbation; D69.6 Thrombocytopenia, unspecified; I10 Essential (primary) hypertension; H91.93 Unspecified hearing loss, bilateral; G47.33 Obstructive sleep apnea (adult) (pediatric); N40.0 Benign prostatic hyperplasia without lower urinary tract symptoms; E78.5 Hyperlipidemia, unspecified; G89.29 Other chronic pain; I25.10 Atherosclerotic heart disease of native coronary artery without angina pectoris; Z96.651 Presence of right artificial knee joint; Z79.01 Long term (current) use of anticoagulants; Z79.82 Long term (current) use of aspirin; Z79.51 Long term (current) use of inhaled steroids; Z87.891 Personal history of nicotine dependence; Z95.5 Presence of coronary angioplasty implant and graft; Z97.4 Presence of external hearing-aid; Z79.899 Other long term (current) drug therapy
CPT/HCPCS: 36415; 71046; 80048; 80053; 81003; 84145; 85025; 86140; 87636; 93005; 94640; 94760; 96374; 96376; 99285

== ENCOUNTER → 2024-10-16 | Outpatient (CLI) | payer MEDICARE ==
[2024-10-16 15:29] LABS: ALT 17 U/L (10-49); AST 19 U/L (14-35); LDL Cholesterol,Calculated 64.5 mg/dL (0.0-131.0)
== END | disposition home or self-care (01) ==
LOC: LABWHC1 09:30
PROVIDERS: ATTEND Internal Medicine Interventional Cardiology
DX: E78.2 Mixed hyperlipidemia (principal)
CPT/HCPCS: 36415; 80061; 84450; 84460

== ENCOUNTER → 2024-12-09 | Outpatient (CLI) | payer MEDICARE ==
--- NOTE | 2024-12-09 12:19 | XR ---
EXAMINATION TYPE: XR Hip Complete RT DATE OF EXAM: 12/09/2024 12:04 PM INDICATION: Patient age:Male; 84 years old; Reason for study: M16.11 UNILATERAL PRIMARY OSTEOARTHRITIS, RIGHT HI; PHH. pain COMPARISON: CT abdomen pelvis 12/02/2019 TECHNIQUE: The right hip was examined in the frontal and lateral projections . FINDINGS: No evidence of any acute osseous pathology, joint dislocation, or soft tissue swelling. The re is medial joint space narrowing with some marginal osteophytosis of the right hip. IMPRESSION: 1. No acute osseous pathology. 2. Mild osteoarthritic changes of the right hip. [facility], , 12/09/2024 12:17 PM
== END | disposition home or self-care (01) ==
LOC: RADXRMAIN 11:40
PROVIDERS: ATTEND Nurse Practitioner Family
DX: M16.11 Unilateral primary osteoarthritis, right hip (principal)
CPT/HCPCS: 73502